=== PATIENT | male | born 1980 | race Caucasian/White ===

== ENCOUNTER → 2017-08-09 10:34 | Outpatient (CLI) | payer MEDICARE, MEDICAID, SELFPAY ==
--- NOTE | 2017-08-09 10:47 | XR_ITS ---
XR foot RT min 3V HISTORY: ITS.REASON: RT FOOT PAIN, SWELLING AND TENDER ORDERING PHYSICIAN: Noy Gonzalez PATIENT AGE: 37 years COMPARISON: None FINDINGS: No fracture or dislocation. No lytic or blastic change. There is normal mineralization.. The joint spaces are well-preserved. No significant degenerative/arthritic changes. No erosive changes evident. IMPRESSION: Negative, no acute finding
== END ==
PROVIDERS: PCP Physician Assistant; Visit Provider Physician Assistant
DX: M79.671 Pain in right foot (principal)
CPT/HCPCS: 73630

== ENCOUNTER → 2017-08-18 09:31 | Outpatient (CLI) | payer MEDICARE, MEDICAID, SELFPAY ==
--- NOTE | 2017-08-18 10:06 | MR_ITS ---
MR foot RT wo con HISTORY: Right foot pain, dorsal and lateral pain ITS.REASON: RIGHT FOOT PAIN ORDERING PHYSICIAN: Noy Gonzalez PATIENT AGE: 37 years COMPARISON: Radiograph of 08/09/2017 TECHNIQUE: Standard multiplanar multiecho sequences are performed without contrast. FINDINGS: There is increased T2 signal involving the head of the second metatarsal and shaft of the second metatarsal. There is a subtle area of decreased transverse T2 signal at the diaphyseal metaphyseal junction at the base of the second metatarsal. These findings are suspicious for stress fracture nondisplaced. Patient had similar findings on the contralateral foot at the fourth metatarsal on MRI of 03/28/2017. There is surrounding soft tissue edema at the base of the second metatarsal. There is a small ankle joint effusion posteriorly. No other significant anomalies are evident. IMPRESSION: Bone marrow edema involving the proximal aspect of the second metatarsal and shaft of the second metatarsal. Suspect a stress fracture at the diaphyseal metaphyseal junction proximally with surrounding soft tissue edema. Osteomyelitis isn't included in the differential diagnosis. Please correlate clinically with appropriate laboratory values. Recommend follow-up radiograph in 7-10 days to assess for any expected bony changes. Small ankle joint effusion
== END ==
PROVIDERS: PCP Physician Assistant; Visit Provider Physician Assistant
DX: M79.671 Pain in right foot (principal)
CPT/HCPCS: 73718

== ENCOUNTER → 2017-08-29 08:58 | Outpatient (CLI) | payer MEDICARE, MEDICAID, SELFPAY ==
[2017-09-01 10:53] LABS: Prolactin 438.2 ng/mL (4.0-15.2)
== END ==
PROVIDERS: PCP Physician Assistant; Visit Provider Obstetrics & Gynecology Gynecology
DX: D35.2 Benign neoplasm of pituitary gland (principal)
CPT/HCPCS: 36415; 84146

== ENCOUNTER → 2017-09-18 13:23 | Outpatient (CLI) | payer MEDICARE, MEDICAID, SELFPAY ==
[2017-09-18 13:55] LABS: Creatinine,Urine Random 98 mg/dL (20-320)
[2017-09-18 14:02] LABS: Total Protein,Urine Random 395.6 mg/dL (0.0-11.9)
[2017-09-18 15:08] LABS: Albumin Level 3.9 gm/dL (3.4-5.0); Anion Gap 12.8 mEq/L (5-15); Blood Urea Nitrogen 13 mg/dL (7-18); Calcium 9.1 mg/dL (8.5-10.1); Carbon Dioxide 27 mmol/L (21.0-32.0); Chloride 102 mmol/L (98-107); Creatinine,Serum 1.17 mg/dL (0.70-1.30); Estimated Glomerular Filt Rate 70 ml/min (>60); GFR (African American) 84 ML/MIN (>60); Glucose 140 mg/dL (74-106); Phosphorous 3.2 mg/dL (2.4-4.9); Potassium 3.8 mmoL/L (3.5-5.1); Sodium 138 mmol/L (136-145); Uric Acid 8.8 mg/dL (2.6-7.2)
[2017-09-19 08:21] LABS: Complement C3 167 mg/dL (82-167)
== END ==
PROVIDERS: PCP Family Medicine; Visit Provider Internal Medicine Nephrology
DX: I10 Essential (primary) hypertension (principal)
CPT/HCPCS: 36415; 80069; 82570; 82652; 84155; 84550; 86161

== ENCOUNTER → 2017-10-02 15:08 | Outpatient (POV) | payer MEDICARE, MEDICAID, SELFPAY | PROVIDERS: PCP Family Medicine; Visit Provider Internal Medicine Nephrology | DX: Z00.00 Encounter for general adult medical examination without abnormal findings (principal) ==

== ENCOUNTER → 2017-12-21 16:20 | Outpatient (CLI) | payer MEDICARE, MEDICAID, SELFPAY ==
--- NOTE | 2017-12-21 16:29 | XR_ITS ---
XR elbow LT min 3V HISTORY: ITS.REASON: LEFT ELBOW PAIN, FALL ORDERING PHYSICIAN: Noy Gonzalez PATIENT AGE: 37 years COMPARISON: None FINDINGS: BONY STRUCTURES: No fracture or dislocation. No lytic or blastic change. Normal mineralization. SOFT TISSUES: Unremarkable. No radio opaque foreign bodies. No displaced fat pad. JOINT SPACE: Well-preserved. No significant arthritic changes evident. IMPRESSION: Negative elbow.
== END ==
PROVIDERS: PCP Physician Assistant; Visit Provider Physician Assistant
DX: M25.522 Pain in left elbow (principal)
CPT/HCPCS: 73080

== ENCOUNTER → 2018-01-29 17:05 | Outpatient (REF) | payer MEDICARE, MEDICAID, SELFPAY | LOC: LAB 17:05 | PROVIDERS: PCP Physician Assistant; Visit Provider Podiatrist | DX: B35.1 Tinea unguium (principal) | CPT/HCPCS: 87102; 87206; 87220 ==

== ENCOUNTER → 2018-04-19 08:29 | Outpatient (CLI) | payer MEDICARE, MEDICAID, SELFPAY ==
[2018-04-20 19:12] LABS: Prolactin 8.4 ng/mL (4.0-15.2)
== END ==
PROVIDERS: PCP Family Medicine; Visit Provider Internal Medicine Endocrinology, Diabetes & Metabolism
DX: D35.2 Benign neoplasm of pituitary gland (principal)
CPT/HCPCS: 36415; 84146

== ENCOUNTER → 2018-06-26 09:29 | Outpatient (CLI) | payer MEDICARE, MEDICAID, SELFPAY ==
[2018-06-26 09:32] LABS: Microscopic, Urine URINE MICROSCOPIC (MICROSCOPIC)
--- NOTE | 2018-06-26 09:46 | XR_ITS ---
XR DEXA axial skeleton HISTORY: ITS.REASON: OSTEOPEROSIS ORDERING PHYSICIAN: Yao Gillette PATIENT AGE: 37 years COMPARISON: None FINDINGS: The BMD measured at the L1-L4 is 1.093 with a T score of -1.1. This is considered moderately low. Fracture risk is moderate. Treatment is advised if there are other risk factors IMPRESSION: Moderate fracture risk. Suggest follow up exam May 2020.
[2018-06-26 09:51] LABS: Appearance,Urine CLEAR (Clear); Bilirubin,Urine Negative (Negative); Blood, Urine TRACE-L (Negative); Color,Urine YELLOW (Yellow); Glucose,Urine (UA) Negative (Negative); Ketones,Urine Negative (Negative); Leukocyte Esterase,Urine Negative (Negative); Nitrate,Urine Negative (Negative); Protein,Urine 2+ (Negative); Specific Gravity, Urine 1.025 (1.005-1.030); Urobilinogen,Urine 0.2 EU/dl (0.2)
[2018-06-26 09:53] LABS: Basophils # 0.1 K/mm3 (0-0.2); Basophils % 0.8 % (0.1-2.0); Eosinophils # 0.3 K/mm3 (0.0-0.4); Eosinophils % 3.3 % (0.1-12.0); Hematocrit 51.2 % (42.0-52.0); Hemoglobin 16.5 g/dL (14.1-18.0); Lymphocytes # 1.9 K/mm3 (0.7-4.5); Lymphocytes % 21.2 % (10-50); Mean Corpuscular HGB Conc 32.3 g/dL (31.8-35.4); Mean Corpuscular Hemoglobin 29.3 pg (27.0-31.2); Mean Corpuscular Volume 90.5 fl (80-94); Mean Platelet Volume 7.5 fl (7.4-10.4); Monocytes # 0.6 K/mm3 (0.1-1.0); Monocytes % 6.2 % (1.7-9.3); Neutrophils # 6.1 K/mm3 (1.8-7.8); Neutrophils % 68.5 % (37.0-80.0); Platelet Count 238 K/mm3 (142-424); Red Blood Count 5.65 M/mm3 (4.60-6.20); White Blood Count 8.9 K/mm3 (4.8-10.8)
[2018-06-26 10:03] LABS: Creatinine,Urine Random 217 mg/dL (20-320); Total Protein,Urine Random 117.4 mg/dL (0.0-11.9)
[2018-06-26 10:55] LABS: Bacteria,Urine Trace /lpf; RBC,Urine Occasional #/hpf (0-3); Squamous Epithelial Cell,Urine Occasional #/hpf (0-5)
[2018-06-26 12:08] LABS: Albumin Level 3.7 gm/dL (3.4-5.0); Anion Gap 14.3 mEq/L (5-15); Blood Urea Nitrogen 16 mg/dL (7-18); Calcium 9.3 mg/dL (8.5-10.1); Carbon Dioxide 29 mmol/L (21.0-32.0); Chloride 99 mmol/L (98-107); Creatinine,Serum 1.24 mg/dL (0.70-1.30); Estimated Glomerular Filt Rate 65 ml/min (>60); GFR (African American) 79 ML/MIN (>60); Glucose 151 mg/dL (74-106); Potassium 4.3 mmoL/L (3.5-5.1); Sodium 138 mmol/L (136-145)
== END ==
PROVIDERS: Visit Provider Internal Medicine Nephrology
DX: R80.9 Proteinuria, unspecified (principal); M81.0 Age-related osteoporosis without current pathological fracture
CPT/HCPCS: 36415; 77080; 80069; 81001; 82570; 82652; 84155; 85025

== ENCOUNTER → 2018-07-02 12:26 | Outpatient (POV) | payer MEDICARE, MEDICAID, SELFPAY | PROVIDERS: Visit Provider Internal Medicine Nephrology | DX: Z00.00 Encounter for general adult medical examination without abnormal findings (principal) ==

== ENCOUNTER → 2018-10-17 07:44 | Outpatient (CLI) | payer MEDICARE, MEDICAID, SELFPAY ==
--- NOTE | 2018-10-17 07:58 | XR_ITS ---
XR knee LT 2V HISTORY: Knee pain ITS.REASON: OSTEOARTHRITIS ORDERING PHYSICIAN: Armani Andujar PATIENT AGE: 38 years COMPARISON: None FINDINGS: No fracture or dislocation. No lytic or blastic change. Normal mineralization. No significant arthritic changes evident. There is a small bone island in the lateral aspect of the proximal tibia No other significant findings IMPRESSION: Negative left knee
--- NOTE | 2018-10-17 07:58 | XR_ITS ---
XR knee RT 2V HISTORY: Knee pain ITS.REASON: OSTEOARTHRITIS ORDERING PHYSICIAN: Armani Andujar PATIENT AGE: 38 years COMPARISON: None FINDINGS: No fracture or dislocation. No lytic or blastic change. Normal mineralization. No significant arthritic changes evident. Incidental hypertrophic changes are present at the tibial tuberosity with an accessory center of ossification No other significant findings IMPRESSION: Negative right knee, no acute finding
== END ==
PROVIDERS: PCP Family Medicine; Visit Provider Internal Medicine
DX: M17.0 Bilateral primary osteoarthritis of knee (principal)
CPT/HCPCS: 73560

== ENCOUNTER → 2018-11-06 14:58 | Outpatient (CLI) | payer MEDICARE, MEDICAID, SELFPAY ==
--- NOTE | 2018-11-06 15:05 | NVE_ITS ---
Venous Exam Indications: 782.3 Edema. IMPRESSIONS 1. There is no evidence of significant Reflux. 2. No evidence of deep or superficial vein thrombosis involving the left lower extremity Left lower extremity venous duplex evaluation. Doppler flow study including spectral analysis, color and durán scale imaging. Location: Vascular laboratory. Patient status: Outpatient. Tables: Venous flow and imaging: + +-------+ + + Location Overall Flow properties Comments + +-------+ + + Left common femoral Patent Normal phasicity; spontaneous; normal augmentation; compressible + +-------+ + + Left saphenofemoral Patent Compressible junction + +-------+ + + Left profunda femoral Patent Compressible + +-------+ + + Left femoral Patent Normal phasicity; spontaneous; normal augmentation; compressible + +-------+ + + Left greater saphenous Patent Normal phasicity; spontaneous; normal augmentation; compressible + +-------+ + + Left popliteal Patent Normal phasicity; spontaneous; normal augmentation; compressible + +-------+ + + Left posterior tibial Patent Compressible Portion vessel not visualized mid calf + +-------+ + + Left peroneal Patent Compressible Portion vessel not visualized mid calf. + +-------+ + + Left gastrocnemius Patent Compressible + +-------+ + + Left soleal Patent Compressible + +-------+ + + (Report amended ) Electronically signed by: Kenroy Blount [id number]
== END ==
PROVIDERS: PCP Physician Assistant; Visit Provider Physician Assistant
DX: M79.605 Pain in left leg (principal); M79.89 Other specified soft tissue disorders
CPT/HCPCS: 93971

== ENCOUNTER → 2018-12-15 08:35 | Outpatient (CLI) | payer MEDICARE, MEDICAID, SELFPAY ==
[2018-12-15 09:45] LABS: Anion Gap 13.6 mEq/L (5-15); Blood Urea Nitrogen 14 mg/dL (7-18); Calcium 8.4 mg/dL (8.5-10.1); Carbon Dioxide 25 mmol/L (21.0-32.0); Chloride 102 mmol/L (98-107); Estimated Glomerular Filt Rate 67 ml/min (>60); GFR (African American) 82 ML/MIN (>60); Glucose 134 mg/dL (74-106); Potassium 4.6 mmoL/L (3.5-5.1); Sodium 136 mmol/L (136-145)
== END ==
PROVIDERS: Visit Provider Surgery
DX: N28.9 Disorder of kidney and ureter, unspecified (principal)
CPT/HCPCS: 36415; 80048

== ENCOUNTER → 2019-02-04 09:10 | Outpatient (CLI) | payer MEDICARE, MEDICAID, SELFPAY ==
[2019-02-06 13:54] LABS: Testosterone,Free 0.9 pg/mL (8.7-25.1)
== END ==
PROVIDERS: Visit Provider Urology
DX: R79.89 Other specified abnormal findings of blood chemistry (principal); E29.1 Testicular hypofunction
CPT/HCPCS: 36415; 84402

== ENCOUNTER → 2019-02-06 13:26 | Outpatient (POV) | payer MEDICARE, MEDICAID, SELFPAY | PROVIDERS: Visit Provider Internal Medicine Nephrology | DX: Z00.00 Encounter for general adult medical examination without abnormal findings (principal) ==

== ENCOUNTER → 2019-03-18 07:50 | Outpatient (CLI) | payer MEDICARE, MEDICAID, SELFPAY ==
[2019-03-18 08:33] LABS: Basophils # 0.1 K/mm3 (0-0.2); Basophils % 0.7 % (0.1-2.0); Eosinophils # 0.3 K/mm3 (0.0-0.4); Eosinophils % 2.9 % (0.1-12.0); Hematocrit 47.1 % (42.0-52.0); Hemoglobin 15.5 g/dL (14.1-18.0); Lymphocytes % 22.6 % (10-50); Mean Corpuscular HGB Conc 32.8 g/dL (31.8-35.4); Mean Corpuscular Volume 91.6 fl (80-94); Mean Platelet Volume 7.2 fl (7.4-10.4); Monocytes # 0.6 K/mm3 (0.1-1.0); Monocytes % 6.6 % (1.7-9.3); Neutrophils # 5.8 K/mm3 (1.8-7.8); Neutrophils % 67.2 % (37.0-80.0); Platelet Count 269 K/mm3 (142-424); Red Blood Count 5.14 M/mm3 (4.60-6.20); Red Cell Distribution Width 14.6 % (11.5-17.5); White Blood Count 8.7 K/mm3 (4.8-10.8)
[2019-03-18 17:32] LABS: Albumin Level 3.8 gm/dL (3.4-5.0); Anion Gap 12.8 mEq/L (5-15); Blood Urea Nitrogen 11 mg/dL (7-18); Calcium 9.1 mg/dL (8.5-10.1); Carbon Dioxide 29 mmol/L (21.0-32.0); Chloride 103 mmol/L (98-107); Creatinine,Serum 1.31 mg/dL (0.70-1.30); Estimated Glomerular Filt Rate 61 ml/min (>60); GFR (African American) 74 ML/MIN (>60); Glucose 90 mg/dL (74-106); Phosphorous 3.5 mg/dL (2.4-4.9); Potassium 3.8 mmoL/L (3.5-5.1); Sodium 141 mmol/L (136-145)
== END ==
PROVIDERS: Visit Provider Internal Medicine Nephrology
DX: R80.9 Proteinuria, unspecified (principal)
CPT/HCPCS: 36415; 80069; 85025

== ENCOUNTER → 2019-04-29 13:37 | Outpatient (POV) | payer MEDICARE, SELFPAY | PROVIDERS: Visit Provider Internal Medicine Nephrology | DX: Z00.00 Encounter for general adult medical examination without abnormal findings (principal) ==

== ENCOUNTER → 2019-10-11 10:11 | Outpatient (CLI) | payer MEDICARE, SELFPAY ==
[2019-10-11 11:03] LABS: Basophils # 0.1 K/mm3 (0-0.2); Basophils % 0.9 % (0.1-2.0); Eosinophils # 0.4 K/mm3 (0.0-0.4); Eosinophils % 3.6 % (0.1-12.0); Hematocrit 52.2 % (42.0-52.0); Hemoglobin 17.2 g/dL (14.1-18.0); Lymphocytes # 1.9 K/mm3 (0.7-4.5); Lymphocytes % 18.4 % (10-50); Mean Corpuscular HGB Conc 32.9 g/dL (31.8-35.4); Mean Corpuscular Hemoglobin 29.5 pg (27.0-31.2); Mean Corpuscular Volume 89.6 fl (80-94); Mean Platelet Volume 7.6 fl (7.4-10.4); Monocytes # 0.8 K/mm3 (0.1-1.0); Monocytes % 7.9 % (1.7-9.3); Neutrophils # 7.3 K/mm3 (1.8-7.8); Neutrophils % 69.3 % (37.0-80.0); Platelet Count 267 K/mm3 (142-424); Red Blood Count 5.82 M/mm3 (4.60-6.20); Red Cell Distribution Width 14.9 % (11.5-17.5); White Blood Count 10.6 K/mm3 (4.8-10.8)
[2019-10-11 12:48] LABS: Alanine Aminotransferase 35 U/L (12-78); Albumin Level 3.8 g/dl (3.5-5.0); Alkaline Phosphatase 62 U/L (38-126); Anion Gap 10.4 mEq/L (5-15); Aspartate Amino Transferase 35 U/L (17-59); Bilirubin,Indirect 0.3 mg/dL (0.0-0.9); Bilirubin,Total 0.3 mg/dl (0.2-1.3); Bilirubin,Unconjugated 0.5 mg/dL (0.0-1.1); Blood Urea Nitrogen 12 mg/dl (9-20); Calcium 9.3 mg/dl (8.4-10.2); Carbon Dioxide 31 mmol/L (22.0-30.0); Chloride 99 mmol/L (98-107); Estimated Glomerular Filt Rate 67 ml/min (>60); GFR (African American) 81 ML/MIN (>60); Glucose 82 mg/dl (74-100); Potassium 4.4 mmoL/L (3.5-5.1); Sodium 136 mmol/L (136-145); Total Protein,Serum 6.3 g/dl (6.3-8.2)
[2019-10-11 12:56] LABS: NT Pro Brain Natriuretic Pep. 74.5 pg/mL (0-125)
== END ==
PROVIDERS: Visit Provider Physician Assistant
DX: I11.9 Hypertensive heart disease without heart failure (principal); I50.9 Heart failure, unspecified; R06.00 Dyspnea, unspecified; R07.9 Chest pain, unspecified; R60.9 Edema, unspecified; E11.9 Type 2 diabetes mellitus without complications; J44.9 Chronic obstructive pulmonary disease, unspecified; G47.33 Obstructive sleep apnea (adult) (pediatric); I27.20 Pulmonary hypertension, unspecified; R06.09 Other forms of dyspnea; R07.89 Other chest pain
CPT/HCPCS: 36415; 80048; 80076; 83880; 85025

== ENCOUNTER → 2019-10-14 13:36 | Outpatient (CLI) | payer MEDICARE, SELFPAY ==
[2019-10-14 14:56] LABS: Chloride 99 mmol/L (98-107)
[2019-10-14 14:57] LABS: Potassium 4.4 mmoL/L (3.5-5.1); Sodium 138 mmol/L (136-145)
[2019-10-14 14:59] LABS: Blood Urea Nitrogen 14 mg/dl (9-20); Estimated Glomerular Filt Rate 67 ml/min (>60); GFR (African American) 81 ML/MIN (>60)
[2019-10-14 15:00] LABS: Anion Gap 13.4 mEq/L (5-15); Calcium 9.8 mg/dl (8.4-10.2); Carbon Dioxide 30 mmol/L (22.0-30.0); Glucose 93 mg/dl (74-100)
== END ==
PROVIDERS: Physician Assistant; Visit Provider Internal Medicine
DX: R60.9 Edema, unspecified (principal); Z51.81 Encounter for therapeutic drug level monitoring; Z79.899 Other long term (current) drug therapy
CPT/HCPCS: 36415; 80048

== ENCOUNTER → 2019-10-30 09:26 | Outpatient (CLI) | payer MEDICARE, SELFPAY ==
[2019-10-30 10:35] LABS: Chloride 99 mmol/L (98-107); Potassium 4.9 mmoL/L (3.5-5.1); Sodium 135 mmol/L (136-145)
[2019-10-30 10:36] LABS: Albumin Level 3.7 g/dl (3.5-5.0)
[2019-10-30 10:38] LABS: Anion Gap 9.9 mEq/L (5-15); Blood Urea Nitrogen 18 mg/dl (9-20); Calcium 9.5 mg/dl (8.4-10.2); Carbon Dioxide 31 mmol/L (22.0-30.0); Estimated Glomerular Filt Rate 56 ml/min (>60); GFR (African American) 68 ML/MIN (>60); Glucose 127 mg/dl (74-100); Phosphorous 3.9 mg/dl (2.5-4.5)
[2019-10-30 12:07] LABS: Chloride 100 mmol/L (98-107)
[2019-10-30 12:08] LABS: Potassium 4.8 mmoL/L (3.5-5.1); Sodium 135 mmol/L (136-145)
[2019-10-30 12:10] LABS: Blood Urea Nitrogen 19 mg/dl (9-20); Estimated Glomerular Filt Rate 56 ml/min (>60); GFR (African American) 68 ML/MIN (>60)
[2019-10-30 12:11] LABS: Anion Gap 9.8 mEq/L (5-15); Calcium 9.5 mg/dl (8.4-10.2); Carbon Dioxide 30 mmol/L (22.0-30.0); Glucose 128 mg/dl (74-100)
== END ==
PROVIDERS: Internal Medicine Nephrology; Visit Provider Physician Assistant
DX: E11.9 Type 2 diabetes mellitus without complications (principal); G47.33 Obstructive sleep apnea (adult) (pediatric); I27.20 Pulmonary hypertension, unspecified; I50.9 Heart failure, unspecified; J44.9 Chronic obstructive pulmonary disease, unspecified; R06.09 Other forms of dyspnea; R60.9 Edema, unspecified; N18.3 Chronic kidney disease, stage 3 (moderate)
CPT/HCPCS: 36415; 80048; 80069

== ENCOUNTER → 2019-10-30 09:40 | Outpatient (CLI) | payer MEDICARE, SELFPAY | PROVIDERS: Visit Provider Nurse Practitioner Family | DX: I27.20 Pulmonary hypertension, unspecified (principal) ==

== ENCOUNTER → 2019-11-08 08:09 | Outpatient (CLI) | payer MEDICARE, SELFPAY ==
[2019-11-08 09:26] LABS: Chloride 99 mmol/L (98-107); Potassium 4.6 mmoL/L (3.5-5.1); Sodium 137 mmol/L (136-145)
[2019-11-08 09:29] LABS: Anion Gap 14.6 mEq/L (5-15); Blood Urea Nitrogen 17 mg/dl (9-20); Carbon Dioxide 28 mmol/L (22.0-30.0); Estimated Glomerular Filt Rate 67 ml/min (>60); GFR (African American) 81 ML/MIN (>60)
[2019-11-08 09:30] LABS: Calcium 10.2 mg/dl (8.4-10.2); Glucose 138 mg/dl (74-100)
[2019-11-09 08:18] LABS: Prolactin 65.7 ng/mL (4.0-15.2)
== END ==
PROVIDERS: Visit Provider Internal Medicine Endocrinology, Diabetes & Metabolism
DX: D35.2 Benign neoplasm of pituitary gland (principal)
CPT/HCPCS: 36415; 80048; 84146

== ENCOUNTER 2020-02-16 12:41 | Emergency (ER) | payer MEDICARE, MEDICAID, SELFPAY ==
[2020-02-16 12:43] VITALS: BP 136/74; PULSE 92; RESP 16; TEMP 36.2; O2SAT 98; BMI 51.6
--- NOTE | 2020-02-16 13:05 | HMH.EDWNDL ---
ED Disposition Clinical Impression: Laceration Disposition: Home, Self-Care Condition on Discharge: Good Instructions: DI for Laceration Repair Referrals: Nell Vaca [Primary Care Provider] - - Critical Care Critical Care Time: No Attestation: On 02/16/20, the high probability of a clinically significant, sudden or life threatening deterioration of the following system(s) required my full and direct attention, intervention and personal management. The time I documented below is in addition to time spent performing reported procedures but includes the following listed in this critical care notation. Medical Decision Making - Medical Records Medical records reviewed: Yes: I reviewed the patient's medical records. - Jorge Inquiry Pt receiving controlled substance: No Vital Signs: 02/16/20 12:43 Temperature 97.1 F L Temperature Source Oral Pulse Rate [Left Radial] 92 H Respiratory Rate 16 Blood Pressure [Right Arm] 136/74 Blood Pressure Mean [Right Arm] 94 Blood Pressure Position [Right Arm] Sitting 02 Sat by Pulse Oximetry 98 Oxygen Delivery Method Room Air Wound/Laceration HPI - General Chief Complaint: Wound/Laceration Stated Complaint: AO cut L hand w/ glass Time Seen by Provider: 02/16/20 12:55 Mode of Arrival: Ambulatory Limitations: No Limitations Description of Symptoms (Recalled from ER Triage Doc. by RN): TO ED PER PVT CAR WITH C/O LAC PALM LT HAND TODAY STATES PUSHING TO HARD AGAINST A WINDOW OF HIS CABIN. PT STATES CURRENTLY TAKING A BLOOD THINNER NO ACTIVE BLEEDING NOTED - History of Present Illness HPI narrative: This is a 39-year-old male that presents with acute laceration to the left palm patient sustained laceration while working on his metal camper. He denies any significant pain but did have a fair amount of bleeding secondary to dual antiplatelet use. Unsure of tetanus status. Onset (ago): minute(s) (30m) Extremity Location: Left: hand - Related Data Home Medications Medication Instructions Recorded Confirmed testosterone cypionate 200 mg/mL 200 mg IM DIRECTED 28 Days #4 10/31/17 12/12/19 intramuscular oil fenofibrate 160 mg tablet 160 mg PO DAILY 30 Days #30 tab 12/12/17 12/12/19 hydroxychloroquine 200 mg tablet 200 mg PO DAILY 30 Days #30 tab 12/12/17 12/12/19 umeclidinium 62.5 mcg/actuation 1 inh INHALATION DAILY PRN 30 Days 12/12/17 12/12/19 blister powder for inhalation #30 each gabapentin 300 mg capsule 300 mg PO BID 30 Days #60 01/29/18 12/12/19 fluticasone propionate 50 1 inh INHALATION BID 12/04/18 12/12/19 mcg/actuation blister powder for inhalation duloxetine 60 mg capsule,delayed 120 mg PO DAILY 30 Days #60 cap 10/11/19 12/12/19 release tizanidine 2 mg tablet 4 mg PO QHS tab 10/30/19 12/12/19 Previous Rx's Medication Instructions Recorded atorvastatin 40 mg tablet 40 mg PO DAILY #90 tab 06/25/19 losartan 25 mg tablet 25 mg PO DAILY #90 tab 06/25/19 carvedilol 25 mg tablet 25 mg PO BID #60 tab 10/11/19 furosemide 40 mg tablet 40 mg PO DAILY #30 tab 10/18/19 spironolactone 25 mg tablet 25 mg PO DAILY #30 tab 10/18/19 Allergies Allergy/AdvReac Type Severity Reaction Status Date / Time Penicillins Allergy Intermediate I-HIVES Verified 12/12/19 08:39 NSAIDS (Non-Steroidal AdvReac Verified 12/12/19 08:39 Anti-Inflamma [facility] History - Hepatitis A Screen Drug use history?: No High risk sexual behaviors?: No History of sexually transmitted infection?: No Currently employed?: No Childcare worker?: No Do you have indoor plumbing?: Yes Do you have electricity?: Yes Attestation statement:: This patient has been screened for Hepatitis A risk factors. I have reviewed the patient's past medical history: Yes Medical History: Reports:: Asthma, Cancer, Congestive Heart Failure, Chronic Obstructive Pulmonary Disease (COPD), Coronary Artery Disease, Depression, Diabetes Mellitus Type 2, Hyperlipidemia, Hypertension,
--- NOTE | 2020-02-16 13:30 | PC.NURSE ---
DSD APPLIED TO LT HAND
[2020-02-16 13:51] VITALS: BP 155/75; PULSE 91; RESP 18; TEMP 36.6; O2SAT 98
== END 2020-02-16 13:53 | disposition home or self-care (01) ==
PROVIDERS: Emergency Provider Emergency Medicine; PCP Family Medicine
DX: S61.412A Laceration without foreign body of left hand, initial encounter (principal); W26.8XXA Contact with other sharp object(s), not elsewhere classified, initial encounter; Y92.89 Other specified places as the place of occurrence of the external cause; J44.9 Chronic obstructive pulmonary disease, unspecified; E78.5 Hyperlipidemia, unspecified; I10 Essential (primary) hypertension; I25.10 Atherosclerotic heart disease of native coronary artery without angina pectoris; F33.1 Major depressive disorder, recurrent, moderate; E11.9 Type 2 diabetes mellitus without complications; M32.9 Systemic lupus erythematosus, unspecified; F17.210 Nicotine dependence, cigarettes, uncomplicated; Z23 Encounter for immunization
CPT/HCPCS: 12001; 90471; 90715; 99282

== ENCOUNTER 2020-03-11 20:14 | Emergency (ER) | payer MEDICARE, MEDICAID, SELFPAY ==
[2020-03-11 20:15] VITALS: BP 149/97; PULSE 89; RESP 16; TEMP 36.9; O2SAT 96; BMI 49.4
--- NOTE | 2020-03-11 20:35 | PC.NURSE ---
pt soaking in hibiclens at this time
--- NOTE | 2020-03-11 21:07 | HMH.EDWNDL ---
ED Disposition Clinical Impression: Laceration Disposition: Home, Self-Care Condition on Discharge: Good Instructions: DI for Laceration Repair Additional Instructions: sutures out 10 days and recheck if any problems Referrals: Nell Vaca [Primary Care Provider] - - Critical Care Critical Care Time: No Attestation: On 03/11/20, the high probability of a clinically significant, sudden or life threatening deterioration of the following system(s) required my full and direct attention, intervention and personal management. The time I documented below is in addition to time spent performing reported procedures but includes the following listed in this critical care notation. Medical Decision Making - Medical Records Medical records reviewed: Yes: I reviewed the patient's medical records. - Jorge Inquiry Pt receiving controlled substance: No Vital Signs: 03/11/20 20:15 Temperature 98.5 F Temperature Source Oral Pulse Rate [Left Radial] 89 Respiratory Rate 16 Blood Pressure [Right Arm] 149/97 H Blood Pressure Mean [Right Arm] 114 Blood Pressure Source [Right Arm] Automatic Cuff Blood Pressure Position [Right Arm] Sitting 02 Sat by Pulse Oximetry 96 Oxygen Delivery Method Room Air Wound/Laceration HPI - General Chief Complaint: Wound/Laceration Stated Complaint: AO 03/11 @ 1945 Lac to right middle finger Time Seen by Provider: 03/11/20 20:30 Mode of Arrival: Ambulatory Source of Information: Patient, Medical Record Limitations: No Limitations Description of Symptoms (Recalled from ER Triage Doc. by RN): pt stated he was taking out the trash when the bag broke and he went to catch it when he cut his finger on a broken wine bottle. laceration present to right index finger - History of Present Illness HPI narrative: lac rt middle finger distal as noted above - Onset (ago): hour(s) Extremity Location: Right: hand Place: home Patient tetanus UTD: Yes Context: accidental Associated symptoms: none - Related Data Home Medications Medication Instructions Recorded Confirmed testosterone cypionate 200 mg/mL 200 mg IM DIRECTED 28 Days #4 10/31/17 12/12/19 intramuscular oil fenofibrate 160 mg tablet 160 mg PO DAILY 30 Days #30 tab 12/12/17 12/12/19 hydroxychloroquine 200 mg tablet 200 mg PO DAILY 30 Days #30 tab 12/12/17 12/12/19 umeclidinium 62.5 mcg/actuation 1 inh INHALATION DAILY PRN 30 Days 12/12/17 12/12/19 blister powder for inhalation #30 each gabapentin 300 mg capsule 300 mg PO BID 30 Days #60 01/29/18 12/12/19 fluticasone propionate 50 1 inh INHALATION BID 12/04/18 12/12/19 mcg/actuation blister powder for inhalation duloxetine 60 mg capsule,delayed 120 mg PO DAILY 30 Days #60 cap 10/11/19 12/12/19 release tizanidine 2 mg tablet 4 mg PO QHS tab 10/30/19 12/12/19 Previous Rx's Medication Instructions Recorded atorvastatin 40 mg tablet 40 mg PO DAILY #90 tab 06/25/19 losartan 25 mg tablet 25 mg PO DAILY #90 tab 06/25/19 carvedilol 25 mg tablet 25 mg PO BID #60 tab 10/11/19 furosemide 40 mg tablet 40 mg PO DAILY #30 tab 10/18/19 spironolactone 25 mg tablet 25 mg PO DAILY #30 tab 10/18/19 Allergies Allergy/AdvReac Type Severity Reaction Status Date / Time Penicillins Allergy Intermediate I-HIVES Verified 12/12/19 08:39 NSAIDS (Non-Steroidal AdvReac Verified 12/12/19 08:39 Anti-Inflamma [facility] History - Hepatitis A Screen Drug use history?: No High risk sexual behaviors?: No History of sexually transmitted infection?: No Currently employed?: No Childcare worker?: No Do you have indoor plumbing?: Yes Do you have electricity?: Yes Attestation statement:: This patient has been screened for Hepatitis A risk factors. I have reviewed the patient's past medical history: Yes Medical History: Reports:: Asthma, Cancer, Congestive Heart Failure, Chronic Obstructive Pulmonary Disease (COPD), Coronary Artery Disease, Depression, Diabetes Mellitus Type 2, Hype
[2020-03-11 21:18] VITALS: BP 145/89; PULSE 93; RESP 18; O2SAT 96
[2020-03-11 21:21] VITALS: BP 142/84; PULSE 84; RESP 16; TEMP 36.9; O2SAT 97
== END 2020-03-11 21:23 | disposition home or self-care (01) ==
PROVIDERS: Emergency Provider Emergency Medicine; PCP Family Medicine
DX: S61.212A Laceration without foreign body of right middle finger without damage to nail, initial encounter (principal); W25.XXXA Contact with sharp glass, initial encounter; Y92.018 Other place in single-family (private) house as the place of occurrence of the external cause; I25.10 Atherosclerotic heart disease of native coronary artery without angina pectoris; E11.9 Type 2 diabetes mellitus without complications; E78.5 Hyperlipidemia, unspecified; I10 Essential (primary) hypertension; F33.1 Major depressive disorder, recurrent, moderate; J44.9 Chronic obstructive pulmonary disease, unspecified; Z88.0 Allergy status to penicillin; Z88.6 Allergy status to analgesic agent; F17.210 Nicotine dependence, cigarettes, uncomplicated; Z79.899 Other long term (current) drug therapy
CPT/HCPCS: 12002; 99282

== ENCOUNTER 2020-04-15 11:41 | Emergency (ER) | payer MEDICARE, MEDICAID, SELFPAY ==
[2020-04-15 11:47] VITALS: BP 156/90; PULSE 80; RESP 18; TEMP 36.7; O2SAT 96; BMI 45.6
--- NOTE | 2020-04-15 11:59 | XR_ITS ---
PROCEDURE: XR FOOT LT MIN 3V CLINICAL INDICATION: L foot pain, no injury COMPARISON: CR FTL3 FOOT-LT-3 VIEWS from 03/20/2017 CR FTL3 FOOT-LT-3 VIEWS from 04/05/2017 CR FTL3 FOOT-LT-3 VIEWS from 04/26/2017 CR [id number] XR foot RT min 3V from 08/09/2017 FINDINGS: No fracture or dislocation. No lytic or blastic change. There is normal mineralization. The joint spaces are well-preserved. No significant degenerative/arthritic changes. No erosive changes evident. Other findings:None. IMPRESSION: No acute findings. Dictated by: Kenroy Blount MD 04/15/2020 13:41 Kenroy Blount MD in [place] 04/15/2020 13:41
--- NOTE | 2020-04-15 12:00 | HMH.EDGENADL ---
ED Disposition Clinical Impression: Left foot pain Disposition: Home, Self-Care Condition on Discharge: Good Additional Instructions: Make sure to follow-up within the next week for a repeat x-ray. If you have any new, changing, worsening, or concerning symptoms, come back to the emergency department. Referrals: PCP,No [Primary Care Provider] - Time of Disposition: 13:06 - Critical Care Critical Care Time: No Attestation: On , the high probability of a clinically significant, sudden or life threatening deterioration of the following system(s) required my full and direct attention, intervention and personal management. The time I documented below is in addition to time spent performing reported procedures but includes the following listed in this critical care notation. Medical Decision Making - Medical Records Medical records reviewed: Yes: I reviewed the patient's medical records. MR Comment: 39-year-old male presents emergency department with left foot pain. He states he heard a pop when he got out of bed this morning and put his feet on the ground. He arrives to the ED hemodynamically stable, with reassuring vital signs, and looks well on exam. Given that he has had stress fractures before without trauma, and he has tenderness along the left distally from medial malleolus through the midfoot on the medial aspect, will get an x-ray and reassess. On reassessment, patient remains well. Subtle irregularity of the base the metatarsal. Placed in a splint and advised nonweightbearing until followup within the next week for repeat x-ray. He verbalized understanding of this and agreed to the plan. Safe to discharge. - Jorge Inquiry Pt receiving controlled substance: No Vital Signs: 04/15/20 11:47 04/15/20 12:13 04/15/20 13:08 Temperature 98.0 F 98.0 F Temperature Source Oral Oral Pulse Rate 76 Pulse Rate [Right Radial] 80 76 Respiratory Rate 18 18 Blood Pressure 129/84 Blood Pressure [Right Arm] 156/90 H 129/84 Blood Pressure Mean [Right Arm] 112 99 Blood Pressure Source [Right Arm] Automatic Cuff Automatic Cuff Blood Pressure Position [Right Arm] Sitting Sitting 02 Sat by Pulse Oximetry 96 97 Oxygen Delivery Method Room Air Room Air Room Air Orders (Tests/Meds): ED MEDICATIONS Discontinued Medications Generic Name Dose Route Start Last Admin Trade Name Freq PRN Reason Stop Dose Admin Acetaminophen 1,000 mg 04/15/20 12:21 04/15/20 12:43 Tylenol 500mg Tablet PO 04/15/20 12:22 1,000 mg ONCE ONE Administration General Adult HPI - General Chief complaint: PAIN Stated complaint: LEFT FOOT FRAC POSSIBLE Time Seen by Provider: 04/15/20 12:00 Mode of Arrival: Ambulatory Limitations: No Limitations Description of Symptoms (Recalled from ER Triage Doc. by RN): pt reports L foot pain, pt reports he got up out of bed this morning a felt a pop in foot. Pt reports has hx of low bone density and has had fractures in foot previously without injury. - History of Present Illness HPI narrative: 39-year-old male with a history of hypertension, hyperlipidemia, presents emergency department with left foot pain. He states that he got out of bed this morning put his feet down and when he stood up he felt a pop in his left foot. He states he has had pain with ambulation since that time. He denies any numbness or tingling. He denies rolling the ankle over or any other trauma. He states he has had stress fractures without trauma previously. He denies anything makes better or worse, no other complaints or concerns. - Related Data Home Medications Medication Instructions Recorded Confirmed testosterone cypionate 200 mg/mL 200 mg IM DIRECTED 28 Days #4 10/31/17 12/12/19 intramuscular oil fenofibrate 160 mg tablet 160 mg PO DAILY 30 Days #30 tab 12/12/17 12/12/19 hydroxychloroquine 200 mg tablet 200 mg PO DAILY 30 Days #30 tab 12/12/17 12/12/19 umeclidinium 62.5 mcg/actuat
--- NOTE | 2020-04-15 12:00 | PC.NURSE ---
notified rad of xray order, spoke with vanessa
[2020-04-15 12:13] VITALS: BP 129/84; PULSE 76; O2SAT 97
--- NOTE | 2020-04-15 12:25 | PC.NURSE ---
Pt to rad.
--- NOTE | 2020-04-15 12:29 | PC.NURSE ---
Pt returned from rad.
[2020-04-15 13:08] VITALS: BP 129/84; PULSE 76; RESP 18; TEMP 36.7; O2SAT 97
== END 2020-04-15 13:11 | disposition home or self-care (01) ==
PROVIDERS: Emergency Provider Emergency Medicine
DX: M79.672 Pain in left foot (principal); I10 Essential (primary) hypertension; E78.5 Hyperlipidemia, unspecified; J44.9 Chronic obstructive pulmonary disease, unspecified; I25.10 Atherosclerotic heart disease of native coronary artery without angina pectoris; E11.9 Type 2 diabetes mellitus without complications; J45.909 Unspecified asthma, uncomplicated; F17.210 Nicotine dependence, cigarettes, uncomplicated; Z88.0 Allergy status to penicillin; Z88.6 Allergy status to analgesic agent
CPT/HCPCS: 29515; 73630; 99283

== ENCOUNTER → 2020-06-02 08:30 | Outpatient (CLI) | payer MEDICARE, MEDICAID, SELFPAY ==
--- NOTE | 2020-06-02 08:35 | XR_ITS ---
PROCEDURE: XR KNEE RT 4V weight-bearing views CLINICAL INDICATION: RT KNEE SPRAIN COMPARISON: CR KNEELMRT XR knee RT 2V from 10/17/2018 FINDINGS: No fracture or dislocation. No lytic or blastic change. There is normal mineralization. There is minor joint space narrowing medially. Again noted is minor cortical irregularity of the tibial tubercle. There is minor spurring of the lateral border of the patella on the sunrise view. There is no definite effusion. IMPRESSION: Minor degenerative changes as noted Dictated by: Dr. Apollo Mckenzie MD 06/02/2020 09:13 Dr. Apollo Mckenzie MD in [place] 06/02/2020 09:13
== END ==
PROVIDERS: PCP Nurse Practitioner Family; Visit Provider Nurse Practitioner Family
DX: S83.91XA Sprain of unspecified site of right knee, initial encounter (principal)
CPT/HCPCS: 73564

== ENCOUNTER → 2020-06-19 09:08 | Outpatient (CLI) | payer MEDICARE, MEDICAID, SELFPAY ==
--- NOTE | 2020-06-19 09:09 | MR_ITS ---
PROCEDURE: MR KNEE RT WO CON CLINICAL INDICATION: evaluate for meniscal tear Twisting injury with pain and swelling with limited range of motion COMPARISON: CR XR KNEE RT 4V from 06/02/2020 TECHNIQUE: Routine multiplanar multi echo sequences are performed without gadolinium enhancement. FINDINGS: The cruciate ligaments appear intact. There is some thickening with increased T2 signal the medial collateral ligament proximally the lateral collateral ligament appears intact. The quadriceps tendon is unremarkable. There is some increased T2 signal involving the proximal distal aspect of the patellar tendon which could be due to tendinopathy/tendinosis. The patellar cartilage is preserved.. There is increased linear horizontal T2 signal within the posterior horn of the medial meniscus. This however does not appear to reach the articular surface or the free edge of the meniscus and does not meet the strict MRI criteria for meniscal tear. The the There are mild osteoarthritic changes with a small knee joint effusion mainly in the suprapatellar region. There is mild generalized subcutaneous edema about the knee. IMPRESSION: 1. Mild osteoarthritic changes with knee joint effusion. 2. Increased T2 signal of the proximal aspect of the medial collateral ligament with thickening and may represent ligamentous sprain or partial tear. A complete tear is not present. 3. Horizontal linear increased T2 signal involves the posterior horn the medial meniscus but does not reach the meniscal surface and does not satisfy the criteria for a meniscal tear. The Dictated by: Kenroy Blount MD 06/22/2020 09:01 Kenroy Blount MD in [place] 06/22/2020 09:01
== END ==
PROVIDERS: PCP Nurse Practitioner Family; Visit Provider Orthopaedic Surgery
DX: M25.561 Pain in right knee (principal)
CPT/HCPCS: 73721

== ENCOUNTER → 2020-06-30 08:06 | Outpatient (CLI) | payer MEDICARE, MEDICAID, SELFPAY ==
[2020-06-30 09:28] LABS: Basophils # 0.1 K/mm3 (0-0.2); Basophils % 0.9 % (0.1-2.0); Eosinophils # 0.3 K/mm3 (0.0-0.4); Hematocrit 54.5 % (42.0-52.0); Lymphocytes # 1.9 K/mm3 (0.7-4.5); Lymphocytes % 21.6 % (10-50); Mean Corpuscular Hemoglobin 29.7 pg (27.0-31.2); Mean Platelet Volume 8.7 fl (7.4-10.4); Monocytes # 0.5 K/mm3 (0.1-1.0); Monocytes % 5.7 % (1.7-9.3); Neutrophils # 5.9 K/mm3 (1.8-7.8); Neutrophils % 67.9 % (37.0-80.0); Platelet Count 267 K/mm3 (142-424); Red Blood Count 6.05 M/mm3 (4.60-6.20); White Blood Count 8.6 K/mm3 (4.8-10.8)
[2020-06-30 09:36] LABS: Creatinine,Urine Random 121 mg/dL (Not Estab.)
[2020-06-30 10:44] LABS: Albumin Level 3.9 g/dl (3.5-5.0); Anion Gap 9.8 mEq/L (5-15); Blood Urea Nitrogen 16 mg/dl (9-20); Calcium 9.6 mg/dl (8.4-10.2); Carbon Dioxide 31 mmol/L (22.0-30.0); Chloride 100 mmol/L (98-107); Estimated Glomerular Filt Rate 56 ml/min (>60); GFR (African American) 68 ML/MIN (>60); Glucose 109 mg/dl (74-100); Potassium 4.8 mmoL/L (3.5-5.1); Sodium 136 mmol/L (136-145)
[2020-06-30 11:58] LABS: 25-OH Vitamin D, Total < 12.8 ng/mL (30-100)
== END ==
PROVIDERS: Visit Provider Internal Medicine Nephrology
DX: N18.30 Chronic kidney disease, stage 3 unspecified (principal); E55.9 Vitamin D deficiency, unspecified
CPT/HCPCS: 36415; 80069; 82043; 82306; 82570; 84155; 84550; 85025

== ENCOUNTER 2020-06-30 09:56 | Outpatient (RCR) | payer MEDICARE, MEDICAID, SELFPAY | END 2020-06-30 10:20 | disposition home or self-care (01) | LOC: PT 09:56 | PROVIDERS: Visit Provider Orthopaedic Surgery | DX: M25.561 Pain in right knee (principal); S83.411D Sprain of medial collateral ligament of right knee, subsequent encounter; S83.241D Other tear of medial meniscus, current injury, right knee, subsequent encounter; M17.11 Unilateral primary osteoarthritis, right knee | CPT/HCPCS: 97760 ==

== ENCOUNTER → 2020-10-21 08:09 | Outpatient (CLI) | payer MEDICARE, MEDICAID, SELFPAY ==
--- NOTE | 2020-10-21 08:14 | XR_ITS ---
PROCEDURE: XR FOOT RT MIN 3V CLINICAL INDICATION: right foot injury, out of boot COMPARISON: CR FTL3 FOOT-LT-3 VIEWS from 04/26/2017 CR [id number] XR foot RT min 3V from 08/09/2017 CR XR FOOT LT MIN 3V from 04/15/2020 DX FOOT RT 3V from 09/12/2020 FINDINGS: No fracture or dislocation. No lytic or blastic change. There is normal mineralization. The joint spaces are well-preserved. No significant degenerative/arthritic changes. No erosive changes evident. Other findings:None. IMPRESSION: No acute findings. Dictated by: Kenroy Blount MD 10/21/2020 09:25 Kenroy Blount MD in [place] 10/21/2020 09:25
== END ==
PROVIDERS: PCP Family Medicine; Visit Provider Orthopaedic Surgery
DX: S99.921A Unspecified injury of right foot, initial encounter (principal)
CPT/HCPCS: 73630

== ENCOUNTER → 2020-11-17 12:22 | Outpatient (CLI) | payer MEDICARE, MEDICAID, SELFPAY ==
[2020-11-17 13:05] LABS: Basophils # 0.1 K/mm3 (0-0.2); Basophils % 0.7 % (0.1-2.0); Eosinophils # 0.3 K/mm3 (0.0-0.4); Eosinophils % 2.5 % (0.1-12.0); Hematocrit 50.7 % (42.0-52.0); Hemoglobin 16.6 g/dL (14.1-18.0); Lymphocytes # 1.9 K/mm3 (0.7-4.5); Lymphocytes % 17.4 % (10-50); Mean Corpuscular HGB Conc 32.8 g/dL (31.8-35.4); Mean Corpuscular Hemoglobin 29.8 pg (27.0-31.2); Mean Platelet Volume 7.3 fl (7.4-10.4); Monocytes # 0.5 K/mm3 (0.1-1.0); Monocytes % 4.4 % (1.7-9.3); Neutrophils # 8.3 K/mm3 (1.8-7.8); Platelet Count 280 K/mm3 (142-424); Red Blood Count 5.57 M/mm3 (4.60-6.20); Red Cell Distribution Width 14.9 % (11.5-17.5); White Blood Count 11.1 K/mm3 (4.8-10.8)
[2020-11-17 13:11] LABS: Hemoglobin A1C 6.1 % (4.0-6.0)
[2020-11-17 13:33] LABS: Alanine Aminotransferase 35 U/L (12-78); Albumin Level 3.9 g/dl (3.5-5.0); Albumin/Globulin Ratio 1.5 (1.1-1.8); Alkaline Phosphatase 110 U/L (38-126); Anion Gap 8.4 mEq/L (5-15); Aspartate Amino Transferase 27 U/L (17-59); Bilirubin,Total 0.3 mg/dl (0.2-1.3); Blood Urea Nitrogen 12 mg/dl (9-20); Calcium 9.2 mg/dl (8.4-10.2); Carbon Dioxide 27 mmol/L (22.0-30.0); Chloride 104 mmol/L (98-107); Estimated Glomerular Filt Rate 61 ml/min (>60); GFR (African American) 74 ML/MIN (>60); Globulin 2.6 g/dL (1.3-3.2); Glucose 119 mg/dl (74-100); Potassium 4.4 mmoL/L (3.5-5.1); Sodium 135 mmol/L (136-145); Total Protein,Serum 6.5 g/dl (6.3-8.2)
[2020-11-17 13:53] LABS: Triiodothryronine (T3) Uptake 29 % (23.5-40.5)
[2020-11-17 13:54] LABS: Free Thyroxine Index 1.9 ug/dL (5.93-13.13); T4 (Thyroxine) 6.4 ug/dl (5.53-11.0)
[2020-11-17 14:21] LABS: Vitamin B12 339 pg/mL (239-931)
[2020-11-18 13:50] LABS: Folate 5.44 ng/mL
== END ==
PROVIDERS: Visit Provider Nurse Practitioner Family
DX: I10 Essential (primary) hypertension (principal); E11.9 Type 2 diabetes mellitus without complications; R53.83 Other fatigue
CPT/HCPCS: 36415; 80053; 82607; 82746; 83036; 84436; 84443; 84479; 85025

== ENCOUNTER → 2020-12-16 14:01 | Outpatient (CLI) | payer MEDICARE, MEDICAID, SELFPAY ==
--- NOTE | 2020-12-16 14:19 | XR_ITS ---
PROCEDURE: XR CHEST 2V CLINICAL HISTORY: Dyspnea COMPARISON: CR CXR CHEST(2 VIEWS-NOT PORTABLE) from 04/08/2016 CT CTAC CTA-CHEST from 04/08/2016 CR CXR CHEST(2 VIEWS-NOT PORTABLE) from 07/13/2016 CR XR CHEST 2V from 04/09/2019 FINDINGS: The cardiomediastinal silhouette and pulmonary vascularity are within normal limits. The lungs are clear without infiltrates, suspicious nodules, or pleural effusions. No acute bony abnormalities. IMPRESSION: No acute findings. Dictated by: Kenroy Blount MD 12/16/2020 15:17 Kenroy Blount MD in [place] 12/16/2020 15:17
[2020-12-16 14:25] LABS: Basophils # 0.1 K/mm3 (0-0.2); Basophils % 0.8 % (0.1-2.0); Eosinophils # 0.4 K/mm3 (0.0-0.4); Eosinophils % 3.4 % (0.1-12.0); Hematocrit 47.2 % (42.0-52.0); Hemoglobin 15.9 g/dL (14.1-18.0); Lymphocytes # 2.2 K/mm3 (0.7-4.5); Lymphocytes % 17.4 % (10-50); Mean Corpuscular HGB Conc 33.8 g/dL (31.8-35.4); Mean Corpuscular Hemoglobin 30.3 pg (27.0-31.2); Mean Corpuscular Volume 89.5 fl (80-94); Mean Platelet Volume 7.4 fl (7.4-10.4); Monocytes # 0.8 K/mm3 (0.1-1.0); Monocytes % 6.1 % (1.7-9.3); Neutrophils % 72.3 % (37.0-80.0); Platelet Count 250 K/mm3 (142-424); Red Blood Count 5.27 M/mm3 (4.60-6.20); White Blood Count 12.5 K/mm3 (4.8-10.8)
[2020-12-22 13:10] LABS: D001-IgE D pteronyssinus <0.10 kU/L (Class 0); D002-IgE D farinae <0.10 kU/L (Class 0); E001-IgE Cat Dander <0.10 kU/L (Class 0); E005-IgE Dog Dander <0.10 kU/L (Class 0); G002-IgE Bermuda Grass <0.10 kU/L (Class 0); G006-IgE Timothy Grass <0.10 kU/L (Class 0); I006-IgE Cockroach, German <0.10 kU/L (Class 0); Immunoglobulin E, Total 69 IU/mL (6-495); M001-IgE Penicillium chrysogen <0.10 kU/L (Class 0); M002-IgE Cladosporium herbarum <0.10 kU/L (Class 0); M003-IgE Aspergillus fumigatus <0.10 kU/L (Class 0); M006-IgE Alternaria alternata <0.10 kU/L (Class 0); T001-IgE Maple/Box Elder <0.10 kU/L (Class 0); T003-IgE Common Silver Birch <0.10 kU/L (Class 0); T006-IgE Cedar, Mountain <0.10 kU/L (Class 0); T007-IgE Oak, White <0.10 kU/L (Class 0); T008-IgE Elm, American <0.10 kU/L (Class 0); T010-IgE Walnut <0.10 kU/L (Class 0); T011-IgE Maple Leaf Sycamore <0.10 kU/L (Class 0); T014-IgE Cottonwood <0.10 kU/L (Class 0); T015-IgE Ash, White <0.10 kU/L (Class 0); T022-IgE Pecan, Hickory <0.10 kU/L (Class 0); T070-IgE White Mulberry <0.10 kU/L (Class 0); W001-IgE Ragweed, Short <0.10 kU/L (Class 0); W011-IgE Thistle, Russian <0.10 kU/L (Class 0); W014-IgE Pigweed, Common <0.10 kU/L (Class 0); W018-IgE Sheep Sorrel <0.10 kU/L (Class 0)
[2020-12-24 05:50] LABS: E072-IgE Mouse Urine <0.10 kU/L (Class 0)
== END ==
PROVIDERS: Visit Provider Internal Medicine Pulmonary Disease
DX: J45.909 Unspecified asthma, uncomplicated (principal)
CPT/HCPCS: 36415; 71046; 82785; 85025; 86003

== ENCOUNTER → 2021-01-05 10:16 | Outpatient (CLI) | payer MEDICARE, MEDICAID, SELFPAY | PROVIDERS: Visit Provider Specialist | DX: Z01.812 Encounter for preprocedural laboratory examination (principal); Z11.52 Encounter for screening for COVID-19 | CPT/HCPCS: U0003 ==

== ENCOUNTER → 2021-01-07 19:57 | Outpatient (CLI) | payer MEDICARE, MEDICAID, SELFPAY | PROVIDERS: PCP Family Medicine; Visit Provider Specialist | DX: G47.33 Obstructive sleep apnea (adult) (pediatric) (principal) | CPT/HCPCS: 95811 ==

== ENCOUNTER → 2021-01-12 13:19 | Outpatient (CLI) | payer MEDICARE, MEDICAID, SELFPAY ==
--- NOTE | 2021-01-12 13:26 | CA_ITS ---
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 Brush RVT Ht: 5 ft 8 in Wt: 321lbs BSA: 2.50 BP: 140/84 mmHg Indications: HTN,RAHEL,PRE-OP,CHF,CAD,SMOKER,COPD,HLD,OBESITY TDS 2D Dimensions LVOT 2.49 cm (M/F) 1.5-2.5 LA Volume 41.90 mL LA Volume Index 16.76 mL/m2 (M/F) 16-34 M-Mode Dimensions RVDd 2.86 cm (0.9-2.6) LA Diam 4.66 cm (1.9-4.0) LVDd 5.83 cm (3.5-5.7) Ao Diam 3.79 cm (2.0-3.7) LVDs 4.10 cm (3.5-5.7) IVSd 1.53 cm (0.6-1.1) PWd 0.84 cm (0.6-1.1) EF (Teich) 56.00% FS 29.70% EDV (Teich) 168.50 mL ESV (Teich) 74.20 mL LV Diastology E Decel Time 103.00 (160-240 msec) E/A Ratio 1.5 MED E' 4.90 (< 7 cm/sec) E'/MED E' Ratio 19.55 (>14) LAT E' 6.50 (<10 cm/sec) E/LAT E' Ratio 14.74 (>14) Aortic Valve AO Peak GR. 7.00 mmHg Mitral Valve MV E Max Hola. 96.00 (40-130 cm/s) MV A Velocity 63.00 (40-130 cm/s) E/A Ratio 1.52 MV Decel. Time 103.00 (160-240 ms) MV PHT 30.00 ms Pulmonary Valve PV Peak Velocity 94.00 (50-150 cm/s) Tricuspid Valve TR P. Velocity 163.00 cm/s RAP Estimate 10.00 mmHg RVSP 20.60 mmHg Left Ventricle Left atrium is mildly enlarged, left ventricle is normal size, mild concentric left ventricular hypertrophy, visually estimated ejection fraction 50%, there is marked hypokinesis involving the inferior basal wall. Diastolic parameters are inconclusive. Right Ventricle Right atrium and right ventricle mildly enlarged with normal contractility. Aortic Valve Aortic valve is minimally thickened and calcified, there is no aortic stenosis or aortic insufficiency. Mitral Valve Mitral valve is grossly normal, there is mild mitral regurgitation. Tricuspid Valve Tricuspid valve grossly normal, there is mild tricuspid regurgitation, tricuspid regurgitation jet velocity is inadequate for calculation of the right ventricular systolic pressure. Pulmonic Valve Pulmonic valve is poorly visualized. Great Vessels Aortic root is normal size. Pericardium No significant pericardial effusion noted. Conclusion 1. Mild biatrial enlargement, normal left ventricular size, mild concentric left ventricular hypertrophy, visually estimated ejection fraction 50% with segmental wall motion abnormality described above, diastolic parameters are inconclusive. 2. Mildly enlarged right ventricle with normal contractility. 3. Mild mitral and tricuspid regurgitation. 4. No significant pericardial effusion noted. Electronically signed by : Arpan Sorto, 01/12/2021 15:22:03
== END ==
PROVIDERS: PCP Family Medicine; Visit Provider Physician Assistant
DX: I50.9 Heart failure, unspecified; I11.0 Hypertensive heart disease with heart failure; I27.20 Pulmonary hypertension, unspecified; E11.9 Type 2 diabetes mellitus without complications; E23.6 Other disorders of pituitary gland; G47.33 Obstructive sleep apnea (adult) (pediatric); J44.9 Chronic obstructive pulmonary disease, unspecified
CPT/HCPCS: 93306

== ENCOUNTER → 2021-01-14 09:28 | Outpatient (CLI) | payer MEDICARE, MEDICAID, SELFPAY | PROVIDERS: PCP Family Medicine; Visit Provider Internal Medicine Pulmonary Disease | DX: R06.00 Dyspnea, unspecified (principal) | CPT/HCPCS: 94060; 94618; 94726; 94729 ==

== ENCOUNTER → 2021-01-19 13:30 | Outpatient (CLI) | payer MEDICARE, MEDICAID, SELFPAY ==
[2021-01-19 13:43] LABS: Basophils # 0.1 K/mm3 (0-0.2); Basophils % 0.8 % (0.1-2.0); Eosinophils # 0.4 K/mm3 (0.0-0.4); Eosinophils % 3.4 % (0.1-12.0); Hematocrit 45.4 % (42.0-52.0); Hemoglobin 16.1 g/dL (14.1-18.0); Lymphocytes # 2.3 K/mm3 (0.7-4.5); Lymphocytes % 18.7 % (10-50); Mean Corpuscular HGB Conc 35.4 g/dL (31.8-35.4); Mean Corpuscular Hemoglobin 30.4 pg (27.0-31.2); Mean Corpuscular Volume 85.9 fl (80-94); Mean Platelet Volume 7.5 fl (7.4-10.4); Monocytes # 0.7 K/mm3 (0.1-1.0); Monocytes % 5.9 % (1.7-9.3); Neutrophils # 8.6 K/mm3 (1.8-7.8); Neutrophils % 71.2 % (37.0-80.0); Platelet Count 286 K/mm3 (142-424); Red Blood Count 5.29 M/mm3 (4.60-6.20); Red Cell Distribution Width 14.7 % (11.5-17.5)
[2021-01-19 14:23] LABS: Chloride 104 mmol/L (98-107); Sodium 139 mmol/L (136-145)
[2021-01-19 14:24] LABS: Potassium 4.5 mmoL/L (3.5-5.1)
[2021-01-19 14:26] LABS: Anion Gap 14.5 mEq/L (5-15); Blood Urea Nitrogen 21 mg/dl (9-20); Carbon Dioxide 25 mmol/L (22.0-30.0); Estimated Glomerular Filt Rate 45 ml/min (>60); GFR (African American) 54 ML/MIN (>60)
[2021-01-19 14:27] LABS: Calcium 9.1 mg/dl (8.4-10.2); Glucose 94 mg/dl (74-100)
== END ==
PROVIDERS: Visit Provider Physician Assistant
DX: Z01.818 Encounter for other preprocedural examination (principal); S67.20XA Crushing injury of unspecified hand, initial encounter; Z11.52 Encounter for screening for COVID-19
CPT/HCPCS: 36415; 80048; 85025; U0003

== ENCOUNTER 2021-01-20 08:58 | Day surgery (SDC) | payer MEDICARE, MEDICAID, SELFPAY ==
[2021-01-20] VITALS (12 sets, daily range): BP systolic 106–200; BP diastolic 65–114; PULSE 59–80; RESP 13–18; TEMP 36.8; O2SAT 92–98; BMI 48.9
--- NOTE | 2021-01-20 | IR_ITS ---
APPROVED REPORT Patient Location: Outpatient PROCEDURES Left heart catheterization Left ventriculogram Selective coronary gram INDICATION LV dysfunction, High risk abnormal Myoview, Regional wall motion abnormality Informed consent was obtained prior to the procedure. COMPLICATIONS NONE Estimated Blood Loss: LESS THNA 10 ML TECHNIQUE One percent lidocaine used to anesthetize the right anterior aspect of the wrist. The right radial artery was accessed via the Seldinger technique. A 6 English sheath was placed in the right radial artery. 2.5 mg of verapamil, 800 mcg of nitroglycerin, 1mg Lidocaine and 5000 U Heparin were given through the arterial sheath. The trap catheter was also used to perform left heart catheterization, left ventriculogram and selective coronary angiogram. At the end of the procedure the sheath was removed good hemostasis was achieved using Traclet band, patient was transferred to the postop holding area in stable condition. ANGIOGRAPHIC RESULTS The left main artery Normal The left anterior descending artery Normal The circumflex artery Large dominant normal The right coronary artery Small nondominant normal The GARCIA ventriculogram reveals Dilated ventricle with reduced ejection fraction estimated at 45-50% with anterior hypokinesis The left ventricular end-diastolic pressure Severely elevated at 40 mm of IMPRESSION Normal coronary arteries Dilated ventricle with reduced ejection fraction and regional wall motion abnormality Severely elevated LVEDP consistent with severe diastolic dysfunction PLAN 1. Diuresis 2. Treatment of LV dysfunction 3. Avoidance of pop/soda/soft drinks 4. Weight loss 5. Evaluation for sleep apnea 6. Start Entresto Electronically signed by : Gerardo Lyle, 01/20/2021 11:02:29
== END 2021-01-20 13:36 | disposition home or self-care (01) ==
LOC: CATHLAB 08:59
PROVIDERS: PCP Family Medicine; Visit Provider Internal Medicine
DX: I11.0 Hypertensive heart disease with heart failure (principal); E66.09 Other obesity due to excess calories; Z68.42 Body mass index [BMI] 45.0-49.9, adult; I27.20 Pulmonary hypertension, unspecified; I50.9 Heart failure, unspecified; E11.22 Type 2 diabetes mellitus with diabetic chronic kidney disease; N18.9 Chronic kidney disease, unspecified; J44.9 Chronic obstructive pulmonary disease, unspecified; Z79.899 Other long term (current) drug therapy; I25.10 Atherosclerotic heart disease of native coronary artery without angina pectoris; F17.210 Nicotine dependence, cigarettes, uncomplicated
CPT/HCPCS: 93458; 99152; C1725; C1760; C1769; J1644; Q9967

== ENCOUNTER → 2021-02-03 10:16 | Outpatient (CLI) | payer MEDICARE, MEDICAID, SELFPAY ==
[2021-02-03 12:31] LABS: Anion Gap 13.8 mEq/L (5-15); Blood Urea Nitrogen 27 mg/dl (9-20); Calcium 9.7 mg/dl (8.4-10.2); Carbon Dioxide 29 mmol/L (22.0-30.0); Chloride 99 mmol/L (98-107); Estimated Glomerular Filt Rate 33 ml/min (>60); GFR (African American) 40 ML/MIN (>60); Glucose 159 mg/dl (74-100); Potassium 4.8 mmoL/L (3.5-5.1); Sodium 137 mmol/L (136-145)
== END ==
PROVIDERS: Visit Provider Nurse Practitioner Family
DX: I11.9 Hypertensive heart disease without heart failure (principal); I27.20 Pulmonary hypertension, unspecified; I42.8 Other cardiomyopathies; I50.9 Heart failure, unspecified
CPT/HCPCS: 36415; 80048

== ENCOUNTER → 2021-02-09 07:09 | Outpatient (CLI) | payer MEDICARE, MEDICAID, SELFPAY ==
[2021-02-09 08:36] LABS: Chloride 104 mmol/L (98-107); Potassium 4.6 mmoL/L (3.5-5.1); Sodium 140 mmol/L (136-145)
[2021-02-09 08:39] LABS: Anion Gap 16.6 mEq/L (5-15); Blood Urea Nitrogen 27 mg/dl (9-20); Calcium 9.3 mg/dl (8.4-10.2); Carbon Dioxide 24 mmol/L (22.0-30.0); Estimated Glomerular Filt Rate 42 ml/min (>60); GFR (African American) 51 ML/MIN (>60); Glucose 161 mg/dl (74-100)
== END ==
PROVIDERS: Visit Provider Nurse Practitioner Family
DX: E78.5 Hyperlipidemia, unspecified (principal); I10 Essential (primary) hypertension; I50.9 Heart failure, unspecified
CPT/HCPCS: 36415; 80048

== ENCOUNTER → 2021-03-03 07:22 | Outpatient (CLI) | payer MEDICARE, MEDICAID, SELFPAY ==
--- NOTE | 2021-03-03 07:23 | CT_ITS ---
PROCEDURE: CT HR CHEST X3 CLINICAL HISTORY: SOA xmonths Hx of asthma Lupus COMPARISON: CT CTAC CTA-CHEST from 04/08/2016 TECHNIQUE: HRCT performed. Standard images performed along with high-resolution images and high-resolution images with expiration and prone positioning. Axial images obtained with sagittal and coronal reformats. All CT scans at the facility use one or more dose reduction, viz: automated exposure control, ma/kV adjustment per patient size (including targeted exams where dose is matched to indication, i.e. head), or iterative reconstruction technique. FINDINGS: Calcified mediastinal and hilar lymph nodes. Right paratracheal lymph node is present measuring 1.8 x 1.3 cm with a focus of calcification. Normal heart size. There is some mild scarring in the right middle lobe inferiorly. There is an irregular opacity in the left apex consistent with mild scarring with an associated small calcified nodule. No suspicious nodules are evident. No areas of consolidation or collapse. No effusions. High-resolution images are obtained. No interlobular septal thickening. No bronchiectasis. There is some minimal linear areas of slight increased density in the right bronchus intermedius and may be due to adherent mucus. Bilateral gynecomastia with mildly prominent nodes in the axilla. Diffuse fatty liver with hepatomegaly. The AP dimension of the liver is 28 cm. IMPRESSION: 1. No evidence of interstitial lung disease 2. Scattered areas of scarring with evidence of old granulomatous disease. 3. Hepatomegaly Dictated by: Kenroy Blount MD 03/04/2021 09:19 Kenroy Blount MD in [place] 03/04/2021 09:19
== END ==
PROVIDERS: PCP Family Medicine; Visit Provider Internal Medicine Pulmonary Disease
DX: R06.02 Shortness of breath (principal)
CPT/HCPCS: 71250

== ENCOUNTER → 2021-03-26 07:18 | Outpatient (CLI) | payer MEDICARE, MEDICAID, SELFPAY ==
[2021-03-26 09:10] LABS: Albumin Level 4.5 g/dl (3.5-5.0)
[2021-03-26 09:10] LABS: Chloride 102 mmol/L (98-107)
[2021-03-26 09:11] LABS: Potassium 4.1 mmoL/L (3.5-5.1); Sodium 141 mmol/L (136-145)
[2021-03-26 09:13] LABS: Blood Urea Nitrogen 22 mg/dl (9-20); Estimated Glomerular Filt Rate 31 ml/min (>60); GFR (African American) 38 ML/MIN (>60)
[2021-03-26 09:14] LABS: Phosphorous 3.5 mg/dl (2.5-4.5)
[2021-03-26 09:14] LABS: Anion Gap 19.1 mEq/L (5-15); Calcium 9.1 mg/dl (8.4-10.2); Carbon Dioxide 24 mmol/L (22.0-30.0); Glucose 174 mg/dl (74-100)
[2021-03-26 09:29] LABS: 25-OH Vitamin D, Total 30.9 ng/mL (30-100)
[2021-03-26 09:40] LABS: Intact Parathyroid Hormone 75.9 pg/mL (7.5-53.5)
[2021-03-26 10:02] LABS: Creatinine,Urine Random 150 mg/dL (Not Estab.); Microalbumin/Creatinine Ratio 2700.6
[2021-03-27 10:58] LABS: Prolactin 20.6 ng/mL (4.0-15.2)
[2021-03-27 16:22] LABS: Calcium, Ionized 4.9 mg/dL (4.5-5.6)
== END ==
PROVIDERS: Internal Medicine Nephrology; Visit Provider Internal Medicine
DX: D35.2 Benign neoplasm of pituitary gland (principal); N18.30 Chronic kidney disease, stage 3 unspecified
CPT/HCPCS: 36415; 80048; 82040; 82043; 82306; 82330; 82570; 83970; 84100; 84146

== ENCOUNTER → 2021-04-19 09:56 | Outpatient (POV) | payer MEDICARE, MEDICAID, SELFPAY | PROVIDERS: Visit Provider Internal Medicine Nephrology | DX: Z00.00 Encounter for general adult medical examination without abnormal findings (principal) ==

== ENCOUNTER → 2021-07-28 10:12 | Outpatient (CLI) | payer MEDICARE, MEDICAID, SELFPAY ==
[2021-07-28 13:59] LABS: Albumin Level 4.6 g/dl (3.5-5.0); Chloride 103 mmol/L (98-107); Potassium 4.8 mmoL/L (3.5-5.1); Sodium 139 mmol/L (136-145)
[2021-07-28 14:00] LABS: Basophils # 0.1 K/mm3 (0-0.2); Basophils % 1.4 % (0.1-2.0); Eosinophils # 0.3 K/mm3 (0.0-0.4); Hematocrit 49.4 % (42.0-52.0); Hemoglobin 16.3 g/dL (14.1-18.0); Lymphocytes # 1.8 K/mm3 (0.7-4.5); Lymphocytes % 23.1 % (10-50); Mean Corpuscular Hemoglobin 29.8 pg (27.0-31.2); Mean Corpuscular Volume 90.2 fl (80-94); Mean Platelet Volume 8.7 fl (7.4-10.4); Monocytes # 0.6 K/mm3 (0.1-1.0); Monocytes % 7.8 % (1.7-9.3); Neutrophils % 63.6 % (37.0-80.0); Platelet Count 363 K/mm3 (142-424); Red Blood Count 5.48 M/mm3 (4.60-6.20); Red Cell Distribution Width 14.4 % (11.5-17.5); White Blood Count 7.8 K/mm3 (4.8-10.8)
[2021-07-28 14:02] LABS: Anion Gap 16.8 mEq/L (5-15); Blood Urea Nitrogen 29 mg/dl (9-20); Carbon Dioxide 24 mmol/L (22.0-30.0); Estimated Glomerular Filt Rate 35 ml/min (>60); GFR (African American) 42 ML/MIN (>60); Phosphorous 4.9 mg/dl (2.5-4.5)
[2021-07-28 14:03] LABS: Calcium 9.7 mg/dl (8.4-10.2); Glucose 103 mg/dl (74-100)
[2021-07-28 15:06] LABS: Creatinine,Urine Random 115 mg/dL (Not Estab.)
== END ==
PROVIDERS: Visit Provider Internal Medicine Nephrology
DX: N18.32 Chronic kidney disease, stage 3b (principal); I10 Essential (primary) hypertension; R80.9 Proteinuria, unspecified
CPT/HCPCS: 36415; 80069; 82043; 82570; 85025

== ENCOUNTER → 2021-08-02 09:34 | Outpatient (POV) | payer MEDICARE, MEDICAID, SELFPAY | PROVIDERS: Visit Provider Internal Medicine Nephrology | DX: Z00.00 Encounter for general adult medical examination without abnormal findings (principal) ==

== ENCOUNTER 2021-09-12 10:35 | Emergency (ER) | payer MEDICARE, MEDICAID, SELFPAY ==
[2021-09-12 10:36] VITALS: BP 122/76; PULSE 82; RESP 18; TEMP 36.7; O2SAT 94; BMI 47.1
--- NOTE | 2021-09-12 10:52 | PC.NURSE ---
Vital signs unhooked for patient to go to bathroom. Pt in restroom at this time trying to provide urine sample.
--- NOTE | 2021-09-12 10:56 | PC.NURSE ---
urine collected and sent to the lab.
[2021-09-12 11:14] LABS: Microscopic, Urine URINE MICROSCOPIC (MICROSCOPIC)
[2021-09-12 11:15] LABS: Basophils # 0.2 K/mm3 (0-0.2); Basophils % 1.9 % (0.1-2.0); Eosinophils # 0.3 K/mm3 (0.0-0.4); Eosinophils % 3.2 % (0.1-12.0); Hematocrit 49.2 % (42.0-52.0); Lymphocytes # 1.7 K/mm3 (0.7-4.5); Lymphocytes % 17.7 % (10-50); Mean Corpuscular HGB Conc 32.6 g/dL (31.8-35.4); Mean Corpuscular Hemoglobin 29.2 pg (27.0-31.2); Mean Corpuscular Volume 89.6 fl (80-94); Monocytes # 0.5 K/mm3 (0.1-1.0); Monocytes % 5.7 % (1.7-9.3); Neutrophils # 6.7 K/mm3 (1.8-7.8); Neutrophils % 71.4 % (37.0-80.0); Platelet Count 295 K/mm3 (142-424); Red Blood Count 5.49 M/mm3 (4.60-6.20); Red Cell Distribution Width 15.5 % (11.5-17.5); White Blood Count 9.4 K/mm3 (4.8-10.8)
[2021-09-12 11:21] LABS: Appearance,Urine CLEAR (Clear); Bilirubin,Urine Negative (Negative); Blood, Urine TRACE-I (Negative); Color,Urine YELLOW (Yellow); Glucose,Urine (UA) TRACE (Negative); Ketones,Urine Negative (Negative); Leukocyte Esterase,Urine Negative (Negative); Nitrate,Urine Negative (Negative); Protein,Urine 2+ (Negative); Urobilinogen,Urine 0.2 EU/dl (0.2)
[2021-09-12 11:22] LABS: Chloride 105 mmol/L (98-107); Potassium 4.4 mmoL/L (3.5-5.1); Sodium 137 mmol/L (136-145)
[2021-09-12 11:24] LABS: Alanine Aminotransferase 57 U/L (12-78); Aspartate Amino Transferase 43 U/L (17-59); Blood Urea Nitrogen 18 mg/dl (9-20); Creatinine Clearance Estimated 42 mL/min (50-200); Estimated Glomerular Filt Rate 33 ml/min (>60); GFR (African American) 40 ML/MIN (>60)
[2021-09-12 11:25] LABS: Albumin Level 4.8 g/dl (3.5-5.0); Albumin/Globulin Ratio 1.5 (1.1-1.8); Alkaline Phosphatase 61 U/L (38-126); Anion Gap 11.4 mEq/L (5-15); Bilirubin,Total 0.5 mg/dl (0.2-1.3); Calcium 8.5 mg/dl (8.4-10.2); Carbon Dioxide 25 mmol/L (22.0-30.0); Globulin 3.1 g/dL (1.3-3.2); Glucose 110 mg/dl (74-100); Total Protein,Serum 7.9 g/dl (6.3-8.2)
[2021-09-12 11:29] VITALS: BP 113/65; PULSE 69; O2SAT 95
[2021-09-12 11:33] LABS: Squamous Epithelial Cell,Urine Occasional #/hpf (0-5); WBC,Urine Occasional #/hpf (0-3)
[2021-09-12 12:00] VITALS: BP 105/77; PULSE 70; O2SAT 97
--- NOTE | 2021-09-12 12:18 | HMH.EDGENADL ---
ED Disposition Clinical Impression: Fatigue Disposition: Home, Self-Care Condition on Discharge: Good Instructions: DI for Fatigue Additional Instructions: Please follow up with your primary care physician in 2-3 days for further management. Please continue to use your diuretics as prescribed. Please continue to monitor your urinary output and bring diary log to your next doctors appointment. Please return if you have difficulty urinating, chest pain, difficulty breathing, symptoms that don't improve or any other worsening symptoms. Referrals: Jasbir Vaca MD [Primary Care Provider] - Time of Disposition: 12:35 - Critical Care Critical Care Time: No Attestation: On 09/12/21, the high probability of a clinically significant, sudden or life threatening deterioration of the following system(s) required my full and direct attention, intervention and personal management. The time I documented below is in addition to time spent performing reported procedures but includes the following listed in this critical care notation. Medical Decision Making - Medical Records Medical records reviewed: Yes: I reviewed the patient's medical records. - Jorge Inquiry Pt receiving controlled substance: No Vital Signs: 09/12/21 10:36 09/12/21 11:29 09/12/21 12:00 Temperature 98.1 F Temperature Source Oral Pulse Rate 69 70 Pulse Rate [Right Radial] 82 Respiratory Rate 18 Blood Pressure 113/65 105/77 L Blood Pressure [Right Arm] 122/76 Blood Pressure Mean [Right Arm] 91 Blood Pressure Source [Right Arm] Automatic Cuff Blood Pressure Position [Right Arm] Sitting 02 Sat by Pulse Oximetry 94 L 95 97 Oxygen Delivery Method Room Air Room Air Room Air 09/12/21 12:30 09/12/21 12:59 Temperature 98.4 F Temperature Source Pulse Rate 66 66 Pulse Rate [Right Radial] Respiratory Rate 16 Blood Pressure 120/86 120/86 Blood Pressure [Right Arm] Blood Pressure Mean [Right Arm] Blood Pressure Source [Right Arm] Blood Pressure Position [Right Arm] 02 Sat by Pulse Oximetry 94 L Oxygen Delivery Method Room Air - Lab Data Lab results reviewed: Yes: I reviewed the patient's lab results. Lab Results 09/12/21 10:54: Urine Color Yellow, Urine Appearance Clear, Urine pH 6.0, Ur Specific [place] 1.020, Urine Protein 2+, Urine Glucose (UA) Trace, Urine Ketones Negative, Urine Blood Trace-i, Urine Nitrate Negative, Urine Bilirubin Negative, Urine Urobilinogen 0.2, Ur Leukocyte Esterase Negative, Urine WBC Occasional, Ur Squamous Epith Cells Occasional 09/12/21 11:04: WBC 9.4, RBC 5.49, Hgb 16.0, Hct 49.2, MCV 89.6, MCH 29.2, MCHC 32.6, RDW 15.5, Plt Count 295, MPV 8.0, Neut % (Auto) 71.4, Lymph % (Auto) 17.7, [place] % (Auto) 5.7, Eos % (Auto) 3.2, Baso % (Auto) 1.9, Neut # (Auto) 6.7, Lymph # (Auto) 1.7, [place] # (Auto) 0.5, Eos # (Auto) 0.3, Baso # (Auto) 0.2 09/12/21 11:04: Sodium 137, Potassium 4.4, Chloride 105, Carbon Dioxide 25, Anion Gap 11.4, BUN 18, Creatinine 2.20 H, Estimated Creat Clear 42, Estimated GFR 33 L, Est GFR ( Amer) 40 L, Glucose 110 H, Calcium 8.5, Total Bilirubin 0.5, AST 43, ALT 57, Alkaline Phosphatase 61, Total Protein 7.9, Albumin 4.8, Globulin 3.1, Albumin/Globulin Ratio 1.5 Result diagrams: 09/12/21 11:04 09/12/21 11:04 Medical Decision Narrative: Mr. Kwok is a 41 yo male w/ PMH for CKD who presents to the ED for 2d of generalized weakness and reduced urinary output. Patient is afebrile and hemodynamicaly stable on arrival. Physical exam benign. Patient non toxic appearing. Skin turgor normal, good cap refill and moist mucous membranes, no clinical signs of dehydration. Patient denies any infectious sx or new medication use. Differentials to consider include: infectious etiology, UTI, BEATRICE, obstructive nephropathy (BPH etc). Basic labs, UA, are remarkable for clean urine. Cr 2.2, which is baseline for the patient. Albumin normal. Patient is eating and drinking appropriately and
[2021-09-12 12:30] VITALS: BP 120/86; PULSE 66; O2SAT 94
[2021-09-12 12:59] VITALS: BP 120/86; PULSE 66; RESP 16; TEMP 36.9; O2SAT 94
== END 2021-09-12 13:00 | disposition home or self-care (01) ==
PROVIDERS: Emergency Provider Student in an Organized Health Care Education/Training Program; PCP Family Medicine
DX: R53.83 Other fatigue (principal); N18.30 Chronic kidney disease, stage 3 unspecified; E78.5 Hyperlipidemia, unspecified; F33.1 Major depressive disorder, recurrent, moderate; I25.10 Atherosclerotic heart disease of native coronary artery without angina pectoris; I13.0 Hypertensive heart and chronic kidney disease with heart failure and stage 1 through stage 4 chronic kidney disease, or unspecified chronic kidney disease; F17.210 Nicotine dependence, cigarettes, uncomplicated; E11.22 Type 2 diabetes mellitus with diabetic chronic kidney disease
CPT/HCPCS: 80053; 81001; 85025; 99282

== ENCOUNTER 2021-11-20 09:02 | Emergency (ER) | payer MEDICARE, MEDICAID, SELFPAY ==
--- NOTE | 2021-11-20 09:09 | XR_ITS ---
PROCEDURE INFORMATION: Exam: XR Left Foot Exam date and time: 11/20/2021 9:08 AM Age: 41 years old Clinical indication: Foot; Left; Patient HX: PT gets frequent stress fractures due to kidney disease, pain around big toe TECHNIQUE: Imaging protocol: XR Left foot. Views: 3 or more views. COMPARISON: CR XR FOOT LT MIN 3V 04/15/2020 12:18 PM FINDINGS: Bones/joints: No acute fracture or malalignment. Mild 1st MTP joint degenerative changes. Soft tissues: Normal. IMPRESSION: No acute fracture or malalignment.
[2021-11-20 09:29] VITALS: BP 138/103; PULSE 70; RESP 19; TEMP 36.6; O2SAT 98; BMI 46.2
--- NOTE | 2021-11-20 10:28 | HMH.EDUTC ---
[facility] [place] Disposition Clinical Impression: Left foot pain Diabetes Qualifiers: Diabetes mellitus type: other specified (including ARLEN) Diabetes mellitus longterm insulin use: unspecified longterm insulin use status Diabetes mellitus complication status: with other specified complication Qualified Code(s): E13.69 - Other specified diabetes mellitus with other specified complication Chronic renal failure, stage 3 (moderate) Qualifiers: Chronic kidney disease stage 3 subtype: unspecified whether 3a or 3b Qualified Code(s): N18.30 - Chronic kidney disease, stage 3 unspecified Gout Qualifiers: Gout site: foot Gout etiology: due to renal impairment Chronicity: acute Laterality: left Qualified Code(s): 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 Take tylenol for pain. Follow up with Dr. Zhao (podiatry). Sometimes there can be fractures that don't show up well on the first set of x-rays. So, especially with being a diabetic, you should follow up with a wire brusher. I put in a referral but you need to call her office and schedule an appointment. Follow up with your regular doctor. GO TO THE ER FOR ANY WORSENING SYMPTOMS I will call you with the results of your blood work with in the next couple of hours and we will go from there. Prescriptions: Colchicine 0.6 mg PO Q1H #3 tab Transmission Status: Received by [facility] Referrals: Jasbir Vaca MD [Primary Care Provider] - Karolyn Zhao DPM [Staff Physician] - Time of Disposition: 10:32 Medical Decision Making - Medical Records Medical records reviewed: No: I reviewed the patient's medical records. - Jorge Inquiry Pt receiving controlled substance: No Vital Signs: 11/20/21 09:29 11/20/21 10:46 Temperature 97.9 F 97.9 F Temperature Source Oral Pulse Rate 70 Pulse Rate [Left Radial] 70 Respiratory Rate 19 19 Blood Pressure 130/99 H Blood Pressure [Right Arm] 138/103 H Blood Pressure Mean [Right Arm] 114 02 Sat by Pulse Oximetry 98 - Lab Data Lab Results 11/20/21 10:42: Uric Acid 10.7 H 11/20/21 10:42: WBC 10.6, RBC 5.17, Hgb 15.7, Hct 47.2, MCV 91.2, MCH 30.3, MCHC 33.2, RDW 15.7, Plt Count 264, MPV 8.3, Neut % (Auto) 72.0, Lymph % (Auto) 17.0, [place] % (Auto) 6.9, Eos % (Auto) 2.3, Baso % (Auto) 1.7, Neut # (Auto) 7.7, Lymph # (Auto) 1.8, [place] # (Auto) 0.7, Eos # (Auto) 0.2, Baso # (Auto) 0.2 11/20/21 10:42: Sodium 138, Potassium 4.4, Chloride 104, Carbon Dioxide 27, Anion Gap 11.4, BUN 21 H, Creatinine 2.10 H, Estimated Creat Clear 44, Estimated GFR 35 L, Est GFR ( Amer) 42 L, Glucose 90, Calcium 9.0 Result diagrams: 11/20/21 10:42 11/20/21 10:42 Orders (Tests/Meds): ED MEDICATIONS Discontinued Medications Generic Name Dose Route Start Last Admin Trade Name Freq PRN Reason Stop Dose Admin Acetaminophen 975 mg 11/20/21 10:11 11/20/21 10:11 Acetaminophen 325mg Tab PO 11/20/21 10:12 975 mg ONCE ONE Administration - Radiology Data #1 Image(s): Foot/Toes Image Reviewed: Yes I reviewed the patient's radiology image, Yes I have reviewed radiologist's interpretation Preliminary Findings: No Fracture Seen PROCEDURE INFORMATION: Exam: XR Left Foot Exam date and time: 11/20/2021 9:08 AM Age: 41 years old Clinical indication: Foot; Left; Patient HX: PT gets frequent stress fractures due to kidney disease, pain around big toe TECHNIQUE: Imaging protocol: XR Left foot. Views: 3 or more views. COMPARISON: CR XR FOOT LT MIN 3V 04/15/2020 12:18 PM FINDINGS: Bones/joints: No acute fracture or malalignment. Mild 1st MTP joint degenerative changes. Soft tissues: Normal. IMPRESSION: No acute fracture or malalignment. Electronically sign
[2021-11-20 10:46] VITALS: BP 130/99; PULSE 70; RESP 19; TEMP 36.6
[2021-11-20 11:15] LABS: Uric Acid 10.7 mg/dl (3.5-8.5)
[2021-11-20 11:16] LABS: Anion Gap 11.4 mEq/L (5-15); Blood Urea Nitrogen 21 mg/dl (9-20); Carbon Dioxide 27 mmol/L (22.0-30.0); Chloride 104 mmol/L (98-107); Creatinine Clearance Estimated 44 mL/min (50-200); Estimated Glomerular Filt Rate 35 ml/min (>60); GFR (African American) 42 ML/MIN (>60); Glucose 90 mg/dl (74-100); Potassium 4.4 mmoL/L (3.5-5.1); Sodium 138 mmol/L (136-145)
[2021-11-20 11:19] LABS: Basophils # 0.2 K/mm3 (0-0.2); Basophils % 1.7 % (0.1-2.0); Eosinophils # 0.2 K/mm3 (0.0-0.4); Eosinophils % 2.3 % (0.1-12.0); Hematocrit 47.2 % (42.0-52.0); Hemoglobin 15.7 g/dL (14.1-18.0); Lymphocytes # 1.8 K/mm3 (0.7-4.5); Mean Corpuscular HGB Conc 33.2 g/dL (31.8-35.4); Mean Corpuscular Hemoglobin 30.3 pg (27.0-31.2); Mean Corpuscular Volume 91.2 fl (80-94); Mean Platelet Volume 8.3 fl (7.4-10.4); Monocytes # 0.7 K/mm3 (0.1-1.0); Monocytes % 6.9 % (1.7-9.3); Neutrophils # 7.7 K/mm3 (1.8-7.8); Platelet Count 264 K/mm3 (142-424); Red Blood Count 5.17 M/mm3 (4.60-6.20); Red Cell Distribution Width 15.7 % (11.5-17.5); White Blood Count 10.6 K/mm3 (4.8-10.8)
== END 2021-11-20 10:48 | disposition home or self-care (01) ==
PROVIDERS: Emergency Provider Nurse Practitioner Family; PCP Family Medicine
DX: M79.672 Pain in left foot (principal); M10.372 Gout due to renal impairment, left ankle and foot; R07.9 Chest pain, unspecified; I13.0 Hypertensive heart and chronic kidney disease with heart failure and stage 1 through stage 4 chronic kidney disease, or unspecified chronic kidney disease; I50.9 Heart failure, unspecified; N18.30 Chronic kidney disease, stage 3 unspecified; I25.10 Atherosclerotic heart disease of native coronary artery without angina pectoris; E78.5 Hyperlipidemia, unspecified; E11.22 Type 2 diabetes mellitus with diabetic chronic kidney disease; K76.9 Liver disease, unspecified; M32.9 Systemic lupus erythematosus, unspecified; G47.33 Obstructive sleep apnea (adult) (pediatric); J44.9 Chronic obstructive pulmonary disease, unspecified; J98.4 Other disorders of lung; F17.210 Nicotine dependence, cigarettes, uncomplicated; Z79.4 Long term (current) use of insulin; Z79.51 Long term (current) use of inhaled steroids; Z79.899 Other long term (current) drug therapy; Z88.0 Allergy status to penicillin; Z88.6 Allergy status to analgesic agent; Z82.49 Family history of ischemic heart disease and other diseases of the circulatory system; Z83.3 Family history of diabetes mellitus
CPT/HCPCS: 29515; 73630; 80048; 84550; 85025; 99213; G0463

== ENCOUNTER 2021-11-30 11:04 | Emergency (ER) | payer MEDICARE, MEDICAID, SELFPAY ==
--- NOTE | 2021-11-30 11:47 | XR_ITS ---
FINAL REPORT CLINICAL HISTORY: splinter in anterior portion of left pointer finger FINDINGS: LEFT HAND: 3 views of the left hand were obtained. There is no acute fracture or dislocation. Visualized joint spaces are normally aligned. No radiopaque foreign body identified. IMPRESSION: No acute fracture or foreign body. Reviewed, Interpreted and Dictated by Dio Meza III, MD Transcribed by Jostin Verdin Authenticated by Dio Meza III, MD on 11/30/2021 01:23:30 PM [facility]
[2021-11-30 12:01] VITALS: BP 122/73; PULSE 89; RESP 20; TEMP 36.6; O2SAT 98; BMI 47.0
[2021-11-30 13:36] VITALS: BP 122/73; PULSE 89; RESP 20; TEMP 36.6
== END 2021-11-30 13:36 | disposition left against medical advice (07) ==
LOC: UTC 11:06
PROVIDERS: Emergency Provider Nurse Practitioner Family; PCP Family Medicine
DX: S60.451A Superficial foreign body of left index finger, initial encounter (principal)
CPT/HCPCS: 73130

== ENCOUNTER → 2022-02-02 12:24 | Outpatient (CLI) | payer MEDICARE, MEDICAID, SELFPAY ==
[2022-02-02 13:09] LABS: Albumin Level 3.9 g/dl (3.5-5.0); Anion Gap 11.2 mEq/L (5-15); Blood Urea Nitrogen 16 mg/dl (9-20); Calcium 9.2 mg/dl (8.4-10.2); Carbon Dioxide 25 mmol/L (22.0-30.0); Chloride 106 mmol/L (98-107); Estimated Glomerular Filt Rate 51 ml/min (>60); GFR (African American) 62 ML/MIN (>60); Glucose 136 mg/dl (74-100); Phosphorous 4.1 mg/dl (2.5-4.5); Potassium 4.2 mmoL/L (3.5-5.1); Sodium 138 mmol/L (136-145)
[2022-02-02 13:25] LABS: 25-OH Vitamin D, Total 14.1 ng/mL (30-100)
[2022-02-02 15:01] LABS: Creatinine,Urine Random 142 mg/dL (Not Estab.)
== END ==
PROVIDERS: PCP Family Medicine; Visit Provider Internal Medicine Nephrology
DX: N18.32 Chronic kidney disease, stage 3b (principal)
CPT/HCPCS: 36415; 80069; 82306; 82570

== ENCOUNTER → 2022-02-14 09:42 | Outpatient (POV) | payer MEDICARE, SELFPAY | PROVIDERS: Visit Provider Internal Medicine Nephrology | DX: Z00.00 Encounter for general adult medical examination without abnormal findings (principal) ==

== ENCOUNTER → 2022-06-02 10:13 | Outpatient (CLI) | payer MEDICARE, MEDICAID, SELFPAY ==
--- NOTE | 2022-06-02 10:19 | XR_ITS ---
FINAL REPORT CLINICAL HISTORY: RT knee pain COMPARISON: 06/02/2020 FINDINGS: RIGHT KNEE 3 views of the right knee were obtained. There is no acute fracture or dislocation. Visualized joint spaces are normally aligned. There are mild degenerative changes. There is spurring along the tibial tubercle. Soft tissues are unremarkable. IMPRESSION: Mild degenerative changes with no acute bony abnormality. Reviewed, Interpreted and Dictated by Dio Meza III, MD Transcribed by Helena Campa Authenticated and [facility]
== END ==
PROVIDERS: PCP Family Medicine; Visit Provider Orthopaedic Surgery
DX: M25.561 Pain in right knee (principal)
CPT/HCPCS: 73562

== ENCOUNTER → 2022-06-17 08:35 | Outpatient (CLI) | payer MEDICARE, MEDICAID, SELFPAY ==
--- NOTE | 2022-06-17 08:57 | MR_ITS ---
FINAL REPORT CLINICAL HISTORY: Knee pain. history knee surgery years ago. swelling in knee. lateral and medial sided knee pain. knee instability. COMPARISON: 06/19/2020 FINDINGS: Multi planar MR imaging was performed of the right knee. The anterior and posterior cruciate ligaments are intact. The quadriceps and patellar tendons are intact. There is a full-thickness tear of the posterior horn of the medial meniscus, more evident than previous. The lateral meniscus is intact. The medial and lateral collateral ligaments appear intact. The medial and lateral retinacula appear intact. There is a mild osteochondral injury along the articular surface of the medial femoral condyle, more evident than previous. Moderate joint effusion is identified. No evidence of soft tissue inflammatory reaction. IMPRESSION: Full-thickness tear posterior horn of the medial meniscus with osteochondral injury of the medial femoral condyle. Findings are more evident than previous. Reviewed, Interpreted and Dictated by Yao Contreras MD Transcribed by Lara Dolan Authenticated and [facility]
[2022-06-17 10:57] LABS: 25-OH Vitamin D, Total < 12.8 ng/mL (30-100)
[2022-06-17 13:13] LABS: Creatinine,Urine Random 104 mg/dL (Not Estab.)
== END ==
PROVIDERS: Internal Medicine Endocrinology, Diabetes & Metabolism; Internal Medicine Nephrology; PCP Family Medicine; Visit Provider Physician Assistant Surgical
DX: N18.32 Chronic kidney disease, stage 3b; M25.561 Pain in right knee; D35.2 Benign neoplasm of pituitary gland; R80.9 Proteinuria, unspecified; I10 Essential (primary) hypertension; M81.0 Age-related osteoporosis without current pathological fracture
CPT/HCPCS: 36415; 73721; 82043; 82306; 82570; 84146; 84155

== ENCOUNTER → 2022-08-31 14:52 | Outpatient (CLI) | payer MEDICARE, MEDICAID, SELFPAY ==
[2022-08-31 15:30] LABS: Albumin Level 3.8 g/dl (3.5-5.0); Anion Gap 10.4 mEq/L (5-15); Blood Urea Nitrogen 17 mg/dl (9-20); Calcium 8.9 mg/dl (8.4-10.2); Carbon Dioxide 22 mmol/L (22.0-30.0); Chloride 109 mmol/L (98-107); Estimated Glomerular Filt Rate 47 ml/min (>60); GFR (African American) 57 ML/MIN (>60); Glucose 154 mg/dl (74-100); Phosphorous 3.9 mg/dl (2.5-4.5); Potassium 4.4 mmoL/L (3.5-5.1); Sodium 137 mmol/L (136-145)
[2022-08-31 15:54] LABS: 25-OH Vitamin D, Total < 12.8 ng/mL (30-100)
[2022-08-31 22:44] LABS: Creatinine,Urine Random 95 mg/dL (Not Estab.)
[2022-09-01 02:52] LABS: Microalbumin > 1140.000 mg/L (0-16.7)
== END ==
PROVIDERS: PCP Internal Medicine Nephrology; Visit Provider Family Medicine
DX: N18.32 Chronic kidney disease, stage 3b (principal); R80.9 Proteinuria, unspecified; M81.0 Age-related osteoporosis without current pathological fracture; I10 Essential (primary) hypertension
CPT/HCPCS: 80069; 82043; 82306; 82570; 84155

== ENCOUNTER → 2022-09-05 11:46 | Outpatient (POV) | payer MEDICARE, SELFPAY | PROVIDERS: Visit Provider Internal Medicine Nephrology | DX: Z00.00 Encounter for general adult medical examination without abnormal findings (principal) ==

== ENCOUNTER → 2022-09-30 12:39 | Outpatient (CLI) | payer MEDICARE, MEDICAID, SELFPAY ==
[2022-09-30 11:33] LABS: Basophils # 0.1 K/mm3 (0-0.2); Basophils % 1.2 % (0.1-2.0); Eosinophils # 0.4 K/mm3 (0.0-0.4); Eosinophils % 4.2 % (0.1-12.0); Hematocrit 46.3 % (42.0-52.0); Hemoglobin 15.7 g/dL (14.1-18.0); Lymphocytes # 1.6 K/mm3 (0.7-4.5); Lymphocytes % 17.7 % (10-50); Mean Corpuscular Hemoglobin 30.3 pg (27.0-31.2); Mean Corpuscular Volume 89.2 fl (80-94); Mean Platelet Volume 8.9 fl (7.4-10.4); Monocytes # 0.5 K/mm3 (0.1-1.0); Monocytes % 5.3 % (1.7-9.3); Neutrophils # 6.3 K/mm3 (1.8-7.8); Neutrophils % 71.6 % (37.0-80.0); Platelet Count 277 K/mm3 (142-424); Red Blood Count 5.19 M/mm3 (4.60-6.20); Red Cell Distribution Width 14.7 % (11.5-17.5); White Blood Count 8.9 K/mm3 (4.8-10.8)
[2022-09-30 11:38] LABS: Chloride 107 mmol/L (98-107); Potassium 4.4 mmoL/L (3.5-5.1); Sodium 137 mmol/L (136-145)
[2022-09-30 11:40] LABS: Alanine Aminotransferase 76 U/L (12-78); Aspartate Amino Transferase 55 U/L (17-59); Blood Urea Nitrogen 23 mg/dl (9-20); Estimated Glomerular Filt Rate 39 ml/min (>60); GFR (African American) 47 ML/MIN (>60)
[2022-09-30 11:41] LABS: Albumin Level 3.8 g/dl (3.5-5.0); Albumin/Globulin Ratio 1.5 (1.1-1.8); Alkaline Phosphatase 95 U/L (38-126); Anion Gap 11.4 mEq/L (5-15); Bilirubin,Total 0.4 mg/dl (0.2-1.3); Calcium 8.8 mg/dl (8.4-10.2); Carbon Dioxide 23 mmol/L (22.0-30.0); Chol/HDL Ratio 7.3 (1-3.5); Cholesterol 235 mg/dl (140-200); Globulin 2.6 g/dL (1.3-3.2); Glucose 159 mg/dl (74-100); HDL Cholesterol 32 mg/dl (40-60); Total Protein,Serum 6.4 g/dl (6.3-8.2)
[2022-09-30 11:50] LABS: Triglycerides 793 mg/dl (30-150)
[2022-09-30 11:52] LABS: Direct LDL Cholesterol 61.32 mg/dL (100-129)
[2022-09-30 11:53] LABS: Hemoglobin A1C 6.1 % (4.0-6.0)
[2022-09-30 12:12] LABS: Thyroid Stimulating Hormone 2.08 uIU/mL (0.465-4.68)
== END ==
PROVIDERS: PCP Family Medicine; Visit Provider Family Medicine
DX: I11.0 Hypertensive heart disease with heart failure; I50.32 Chronic diastolic (congestive) heart failure; Z00.00 Encounter for general adult medical examination without abnormal findings; R53.83 Other fatigue; E13.69 Other specified diabetes mellitus with other specified complication
CPT/HCPCS: 80053; 80061; 83036; 84443; 85025

== ENCOUNTER → 2022-12-13 16:17 | Outpatient (CLI) | payer MEDICARE, MEDICAID, SELFPAY ==
[2022-12-13 17:33] LABS: Chloride 102 mmol/L (98-107); Sodium 138 mmol/L (136-145)
[2022-12-13 17:34] LABS: Albumin Level 4.1 g/dl (3.5-5.0); Potassium 4.8 mmoL/L (3.5-5.1)
[2022-12-13 17:36] LABS: Anion Gap 16.8 mEq/L (5-15); Blood Urea Nitrogen 18 mg/dl (9-20); Carbon Dioxide 24 mmol/L (22.0-30.0); Estimated Glomerular Filt Rate 25 ml/min (>60); GFR (African American) 30 ML/MIN (>60)
[2022-12-13 17:37] LABS: Calcium 9.4 mg/dl (8.4-10.2); Glucose 74 mg/dl (74-100); Phosphorous 4.2 mg/dl (2.5-4.5)
[2022-12-13 17:45] LABS: Creatinine,Urine Random 85 mg/dL (Not Estab.); Microalbumin > 190.000 mg/L (0-16.7); Microalbumin/Creatinine Ratio 223.5
[2022-12-13 18:55] LABS: 25-OH Vitamin D, Total 26.4 ng/mL (30-100)
== END ==
PROVIDERS: Internal Medicine Nephrology; PCP Family Medicine; Visit Provider Family Medicine
DX: N18.30 Chronic kidney disease, stage 3 unspecified (principal)
CPT/HCPCS: 80069; 82043; 82306; 82570; 84155

== ENCOUNTER → 2023-01-30 16:35 | Outpatient (CLI) | payer MEDICARE, MEDICAID, SELFPAY ==
[2023-01-30 16:46] LABS: Albumin Level 4.1 g/dl (3.5-5.0); Chloride 107 mmol/L (98-107); Sodium 140 mmol/L (136-145)
[2023-01-30 16:49] LABS: Blood Urea Nitrogen 46 mg/dl (9-20); Carbon Dioxide 21 mmol/L (22.0-30.0); Estimated Glomerular Filt Rate 27 ml/min (>60); GFR (African American) 33 ML/MIN (>60); Phosphorous 5.1 mg/dl (2.5-4.5)
[2023-01-30 16:50] LABS: Calcium 9.1 mg/dl (8.4-10.2); Glucose 161 mg/dl (74-100)
[2023-01-30 16:52] LABS: Creatinine,Urine Random 116 mg/dL (Not Estab.)
== END ==
PROVIDERS: Visit Provider Nurse Practitioner
DX: N17.9 Acute kidney failure, unspecified (principal); N18.9 Chronic kidney disease, unspecified
CPT/HCPCS: 80069; 82570; 84155

== ENCOUNTER → 2023-02-08 19:34 | Outpatient (CLI) | payer MEDICARE, MEDICAID, SELFPAY ==
[2023-02-08 19:50] LABS: Microscopic, Urine URINE MICROSCOPIC (MICROSCOPIC)
[2023-02-08 20:27] LABS: Albumin Level 4.4 g/dl (3.5-5.0); Anion Gap 15.9 mEq/L (5-15); Blood Urea Nitrogen 45 mg/dl (9-20); Calcium 9.7 mg/dl (8.4-10.2); Carbon Dioxide 22 mmol/L (22.0-30.0); Chloride 108 mmol/L (98-107); Estimated Glomerular Filt Rate 30 ml/min (>60); GFR (African American) 36 ML/MIN (>60); Glucose 189 mg/dl (74-100); Phosphorous 4.9 mg/dl (2.5-4.5); Potassium 5.9 mmoL/L (3.5-5.1); Sodium 140 mmol/L (136-145)
[2023-02-08 20:39] LABS: Intact Parathyroid Hormone 46.2 pg/mL (7.5-53.5)
[2023-02-08 20:44] LABS: 25-OH Vitamin D, Total 18.7 ng/mL (30-100)
[2023-02-08 21:11] LABS: Appearance,Urine CLEAR (Clear); Bilirubin,Urine Negative (Negative); Blood, Urine TRACE-I (Negative); Color,Urine YELLOW (Yellow); Glucose,Urine (UA) Negative (Negative); Ketones,Urine Negative (Negative); Leukocyte Esterase,Urine Negative (Negative); Nitrate,Urine Negative (Negative); PH,Urine 5.5 (5.0-8.5); Protein,Urine 2+ (Negative); Urobilinogen,Urine 0.2 EU/dl (0.2)
[2023-02-08 21:20] LABS: Creatinine,Urine Random 58 mg/dL (Not Estab.)
== END ==
PROVIDERS: PCP Nurse Practitioner; Visit Provider Nurse Practitioner
DX: N18.31 Chronic kidney disease, stage 3a (principal)
CPT/HCPCS: 80069; 81001; 82306; 82570; 83970; 84155

== ENCOUNTER → 2023-06-12 08:42 | Outpatient (CLI) | payer MEDICARE, MEDICAID, SELFPAY ==
[2023-06-12 17:42] LABS: Chloride 104 mmol/L (98-107); Potassium 4.3 mmoL/L (3.5-5.1); Sodium 138 mmol/L (136-145)
[2023-06-12 17:45] LABS: Alanine Aminotransferase 61 U/L (12-78); Albumin Level 4.4 g/dl (3.5-5.0); Albumin/Globulin Ratio 1.8 (1.1-1.8); Alkaline Phosphatase 53 U/L (38-126); Anion Gap 13.3 mEq/L (5-15); Aspartate Amino Transferase 55 U/L (17-59); Bilirubin,Total 0.3 mg/dl (0.2-1.3); Blood Urea Nitrogen 19 mg/dl (9-20); Calcium 8.6 mg/dl (8.4-10.2); Carbon Dioxide 25 mmol/L (22.0-30.0); Estimated Glomerular Filt Rate 33 ml/min (>60); GFR (African American) 40 ML/MIN (>60); Globulin 2.5 g/dL (1.3-3.2); Glucose 88 mg/dl (74-100); Total Protein,Serum 6.9 g/dl (6.3-8.2)
[2023-06-12 17:53] LABS: Basophils # 0.1 K/mm3 (0-0.2); Basophils % 0.9 % (0.1-2.0); Eosinophils # 0.2 K/mm3 (0.0-0.4); Eosinophils % 2.2 % (0.1-12.0); Hematocrit 40.3 % (42.0-52.0); Hemoglobin 13.9 g/dL (14.1-18.0); Lymphocytes # 1.4 K/mm3 (0.7-4.5); Lymphocytes % 19.2 % (10-50); Mean Corpuscular HGB Conc 34.4 g/dL (31.8-35.4); Mean Corpuscular Hemoglobin 32.3 pg (27.0-31.2); Mean Corpuscular Volume 93.8 fl (80-94); Mean Platelet Volume 8.7 fl (7.4-10.4); Monocytes # 0.9 K/mm3 (0.1-1.0); Monocytes % 12.5 % (1.7-9.3); Neutrophils # 4.7 K/mm3 (1.8-7.8); Neutrophils % 65.3 % (37.0-80.0); Platelet Count 262 K/mm3 (142-424); Red Blood Count 4.29 M/mm3 (4.60-6.20); White Blood Count 7.2 K/mm3 (4.8-10.8)
== END ==
LOC: LAB.DROPOF 06-13 08:42
PROVIDERS: PCP Nurse Practitioner Family; Visit Provider Nurse Practitioner Family
DX: N17.9 Acute kidney failure, unspecified (principal); N18.30 Chronic kidney disease, stage 3 unspecified; R35.0 Frequency of micturition
CPT/HCPCS: 80053; 85025

== ENCOUNTER 2023-12-27 09:27 | Outpatient (CLI) | payer MEDICARE, MEDICAID, SELFPAY ==
[2023-12-27 16:33] LABS: Basophils # 0.1 K/mm3 (0-0.2); Basophils % 1.2 % (0.1-2.0); Eosinophils # 0.4 K/mm3 (0.0-0.4); Eosinophils % 3.9 % (0.1-12.0); Hematocrit 40.3 % (42.0-52.0); Lymphocytes % 19.4 % (10-50); Mean Corpuscular HGB Conc 32.1 g/dL (31.8-35.4); Mean Corpuscular Hemoglobin 31.7 pg (27.0-31.2); Mean Corpuscular Volume 98.8 fl (80-94); Mean Platelet Volume 9.4 fl (7.4-10.4); Monocytes # 0.6 K/mm3 (0.1-1.0); Monocytes % 6.1 % (1.7-9.3); Neutrophils # 7.1 K/mm3 (1.8-7.8); Neutrophils % 69.3 % (37.0-80.0); Platelet Count 282 K/mm3 (142-424); Red Blood Count 4.08 M/mm3 (4.60-6.20); Red Cell Distribution Width 15.1 % (11.5-17.5); White Blood Count 10.3 K/mm3 (4.8-10.8)
[2023-12-27 16:56] LABS: Alanine Aminotransferase 46 U/L (12-78); Albumin/Globulin Ratio 1.4 (1.1-1.8); Alkaline Phosphatase 77 U/L (38-126); Anion Gap 18.7 mEq/L (5-15); Aspartate Amino Transferase 45 U/L (17-59); Bilirubin,Total 0.4 mg/dl (0.2-1.3); Blood Urea Nitrogen 34 mg/dl (9-20); Calcium 9.8 mg/dl (8.4-10.2); Carbon Dioxide 18 mmol/L (22.0-30.0); Chloride 108 mmol/L (98-107); Chol/HDL Ratio 7.2 (1-3.5); Cholesterol 179 mg/dl (140-200); Estimated Glomerular Filt Rate 30 ml/min (>60); GFR (African American) 36 ML/MIN (>60); Globulin 2.8 g/dL (1.3-3.2); Glucose 146 mg/dl (74-100); HDL Cholesterol 25 mg/dl (40-60); Potassium 4.7 mmoL/L (3.5-5.1); Sodium 140 mmol/L (136-145); Total Protein,Serum 6.8 g/dl (6.3-8.2)
[2023-12-27 17:13] LABS: Direct LDL Cholesterol 37.84 mg/dL (100-129)
[2023-12-27 17:23] LABS: Triglycerides 908 mg/dl (30-150)
[2023-12-27 17:26] LABS: Thyroid Stimulating Hormone 1.73 uIU/mL (0.465-4.68)
[2023-12-27 17:39] LABS: Hemoglobin A1C 6.9 % (4.0-6.0)
[2023-12-27 17:56] LABS: 25-OH Vitamin D, Total 19.9 ng/mL (30-100)
== END 2023-12-27 23:59 | disposition home or self-care (01) ==
LOC: LAB.DROPOF 12-29 09:28
PROVIDERS: PCP Nurse Practitioner Family; Visit Provider Nurse Practitioner Family
DX: E55.9 Vitamin D deficiency, unspecified (principal); N18.9 Chronic kidney disease, unspecified; E78.5 Hyperlipidemia, unspecified; R53.83 Other fatigue; E13.69 Other specified diabetes mellitus with other specified complication
CPT/HCPCS: 80053; 80061; 82306; 83036; 84443; 85025

== ENCOUNTER 2024-01-29 11:46 | Outpatient (CLI) | payer MEDICARE, MEDICAID, SELFPAY ==
[2024-01-29 12:10] LABS: Basophils # 0.1 K/mm3 (0-0.2); Basophils % 0.9 % (0.1-2.0); Eosinophils # 0.4 K/mm3 (0.0-0.4); Eosinophils % 3.6 % (0.1-12.0); Hematocrit 36.4 % (42.0-52.0); Hemoglobin 13.5 g/dL (14.1-18.0); Lymphocytes % 19.1 % (10-50); Mean Corpuscular HGB Conc 37.1 g/dL (31.8-35.4); Mean Corpuscular Hemoglobin 35.4 pg (27.0-31.2); Mean Corpuscular Volume 95.6 fl (80-94); Mean Platelet Volume 8.8 fl (7.4-10.4); Monocytes # 0.5 K/mm3 (0.1-1.0); Monocytes % 5.1 % (1.7-9.3); Neutrophils # 7.3 K/mm3 (1.8-7.8); Neutrophils % 71.4 % (37.0-80.0); Platelet Count 234 K/mm3 (142-424); Red Blood Count 3.81 M/mm3 (4.60-6.20); Red Cell Distribution Width 15.3 % (11.5-17.5); White Blood Count 10.3 K/mm3 (4.8-10.8)
[2024-01-30 11:33] LABS: Estradiol <5.0 pg/mL (7.6-42.6)
[2024-01-30 13:14] LABS: PSA, Free 0.04 ng/mL; Prostate Specific Ag <0.1 ng/mL (0.0-4.0); Sex Hormone Binding Globulin 29.6 nmol/L (16.5-55.9); Testosterone,Total 25 ng/dL (264-916)
[2024-02-01 19:40] LABS: Testosterone,Free 0.6 pg/mL (6.8-21.5)
== END 2024-01-29 23:59 | disposition home or self-care (01) ==
LOC: LAB 11:49
PROVIDERS: PCP Family Medicine; Visit Provider Urology
DX: N52.9 Male erectile dysfunction, unspecified (principal); Z12.5 Encounter for screening for malignant neoplasm of prostate
CPT/HCPCS: 36415; 82670; 84146; 84153; 84154; 84270; 84402; 84403; 85025

== ENCOUNTER 2024-02-12 22:22 | Outpatient (CLI) | payer MEDICARE, MEDICAID, SELFPAY ==
[2024-02-13 08:08] LABS: Microscopic, Urine URINE MICROSCOPIC (MICROSCOPIC)
[2024-02-13 08:26] LABS: Appearance,Urine CLEAR (Clear); Bilirubin,Urine Negative (Negative); Blood, Urine Negative (Negative); Color,Urine YELLOW (Yellow); Glucose,Urine (UA) 1+ (Negative); Ketones,Urine Negative (Negative); Leukocyte Esterase,Urine Negative (Negative); Nitrate,Urine Negative (Negative); Protein,Urine 2+ (Negative); Specific Gravity, Urine 1.025 (1.005-1.030); Urobilinogen,Urine 0.2 EU/dl (0.2)
[2024-02-13 08:30] LABS: Albumin Level 4.1 g/dl (3.5-5.0); Anion Gap 14.7 mEq/L (5-15); Blood Urea Nitrogen 32 mg/dl (9-20); Calcium 9.2 mg/dl (8.4-10.2); Carbon Dioxide 18 mmol/L (22.0-30.0); Chloride 111 mmol/L (98-107); Estimated Glomerular Filt Rate 34 ml/min (>60); GFR (African American) 42 ML/MIN (>60); Glucose 178 mg/dl (74-100); Phosphorous 4.6 mg/dl (2.5-4.5); Potassium 4.7 mmoL/L (3.5-5.1); Sodium 139 mmol/L (136-145)
[2024-02-13 08:42] LABS: Intact Parathyroid Hormone 83.7 pg/mL (7.5-53.5)
[2024-02-13 08:47] LABS: 25-OH Vitamin D, Total 25.4 ng/mL (30-100)
[2024-02-13 08:52] LABS: Hemoglobin 12.4 g/dL (14.1-18.0); Mean Corpuscular HGB Conc 32.6 g/dL (31.8-35.4); Mean Corpuscular Hemoglobin 32.4 pg (27.0-31.2); Mean Corpuscular Volume 99.5 fl (80-94); Platelet Count 240 K/mm3 (142-424); Red Blood Count 3.83 M/mm3 (4.60-6.20); Red Cell Distribution Width 15.1 % (11.5-17.5); White Blood Count 10.8 K/mm3 (4.8-10.8)
[2024-02-13 08:53] LABS: Bacteria,Urine Trace /lpf; RBC,Urine Occasional #/hpf (0-3)
[2024-02-13 10:04] LABS: Creatinine,Urine Random 119 mg/dL (Not Estab.)
[2024-02-13 10:40] LABS: Microalbumin/Creatinine Ratio 1505.1
== END 2024-02-12 23:59 | disposition home or self-care (01) ==
LOC: LAB.DROPOF 22:25
PROVIDERS: PCP Nurse Practitioner; Visit Provider Nurse Practitioner
DX: N18.31 Chronic kidney disease, stage 3a (principal); E55.9 Vitamin D deficiency, unspecified
CPT/HCPCS: 80069; 81001; 82043; 82306; 82570; 83970; 84156; 85014; 85018; 85048; 85049

== ENCOUNTER 2024-03-18 11:00 | Outpatient (CLI) | payer MEDICARE, MEDICAID, SELFPAY | END 2024-03-18 23:59 | disposition home or self-care (01) | LOC: LAB.DROPOF 03-19 11:00 | PROVIDERS: PCP Family Medicine; Visit Provider Family Medicine | DX: R10.31 Right lower quadrant pain (principal); R19.7 Diarrhea, unspecified | CPT/HCPCS: 87086 ==

== ENCOUNTER 2024-09-16 13:20 | Outpatient (CLI) | payer MEDICARE, MEDICAID, SELFPAY ==
[2024-09-16 17:38] LABS: Microscopic, Urine URINE MICROSCOPIC (MICROSCOPIC)
[2024-09-16 17:41] LABS: Hematocrit 39.9 % (42.0-52.0); Hemoglobin 12.9 g/dL (14.1-18.0); Mean Corpuscular HGB Conc 32.3 g/dL (31.8-35.4); Mean Corpuscular Hemoglobin 29.4 pg (27.0-31.2); Mean Corpuscular Volume 90.9 fl (80-94); Platelet Count 261 K/mm3 (142-424); Red Blood Count 4.39 M/mm3 (4.60-6.20); White Blood Count 10.5 K/mm3 (4.8-10.8)
[2024-09-16 17:48] LABS: Albumin Level 4.2 g/dl (3.5-5.0); Chloride 105 mmol/L (98-107); Sodium 135 mmol/L (136-145)
[2024-09-16 17:49] LABS: Appearance,Urine CLEAR (Clear); Bilirubin,Urine Negative (Negative); Blood, Urine Negative (Negative); Color,Urine YELLOW (Yellow); Glucose,Urine (UA) Negative (Negative); Ketones,Urine Negative (Negative); Leukocyte Esterase,Urine Negative (Negative); Nitrate,Urine Negative (Negative); Protein,Urine 2+ (Negative); Urobilinogen,Urine 0.2 EU/dl (0.2)
[2024-09-16 17:52] LABS: Blood Urea Nitrogen 33 mg/dl (9-20); Carbon Dioxide 21 mmol/L (22.0-30.0); Estimated Glomerular Filt Rate 29 ml/min (>60); GFR (African American) 36 ML/MIN (>60); Glucose 71 mg/dl (74-100); Phosphorous 3.9 mg/dl (2.5-4.5)
[2024-09-16 18:21] LABS: Creatinine,Urine Random 79 mg/dL (Not Estab.)
[2024-09-16 18:41] LABS: Hepatitis C Ab Qual. W/ RFX NEGATIVE (Negative)
[2024-09-16 18:51] LABS: HIV Combo NEGATIVE (Negative)
[2024-09-16 20:12] LABS: Microalbumin/Creatinine Ratio 895.1
== END 2024-09-16 23:59 | disposition home or self-care (01) ==
LOC: LAB.DROPOF 09-18 10:27
PROVIDERS: Nurse Practitioner; PCP Family Medicine; Visit Provider Family Medicine
DX: N18.9 Chronic kidney disease, unspecified (principal); Z11.59 Encounter for screening for other viral diseases
CPT/HCPCS: 80069; 81001; 82043; 82570; 84156; 85027; 86803; 87389

== ENCOUNTER 2024-09-18 13:45 | Emergency (ER) | payer MEDICARE, MEDICAID, SELFPAY ==
[2024-09-18 13:46] VITALS: BP 109/79; PULSE 98; RESP 24; TEMP 36.7; O2SAT 95; BMI 46.3
--- NOTE | 2024-09-18 13:51 | ED_ITS ---
<Statement entered by Suly Blanchard DO - 09/18/24 15:58> I was consulted by the MARYAN, and we discussed the complexity of the problems being addressed. I approved the treatment and management plan for this patient's care in the emergency department, thus performing a substantive portion of the medical decision making. Suly Blanchard DO Discharge Plan Disposition Patient Disposition: Home, Self-Care Condition: Fair Prescriptions Prescriptions: New ipratropium-albuterol 0.5 mg-3 mg(2.5 mg base)/3 mL solution for nebulization 3 ml inhalation Q6H PRN (Reason: wheezing) Qty: 180 0RF levofloxacin 750 mg tablet 750 mg PO .Every other day 10 Days Qty: 5 0RF Rx Instructions: Starting on September 20, 2024 doxycycline hyclate 100 mg capsule 100 mg PO BID 10 Days Qty: 20 0RF prednisone 50 mg tablet 50 mg PO DAILY 5 Days Qty: 5 0RF tpliohondxdweiz-tvwxnlsfr-QE [Bromfed DM] 2-30-10 mg/5 mL syrup 5 ml PO Q4H PRN (Reason: sinus symptoms) Qty: 118 0RF No Action hydroxychloroquine 200 mg tablet 200 mg PO BID 30 Days Qty: 60 Patient Comments: ergocalciferol (vitamin D2) [Vitamin D2] 1,250 mcg (50,000 unit) capsule 1,250 mcg PO WEEKLY albuterol sulfate 90 mcg/actuation HFA aerosol inhaler 1 inh INHALATION QID PRN (Reason: shortness of breath or wheezing) Qty: 8.5 12RF fluticasone propionate [Flonase Allergy Relief] 50 mcg/actuation spray,suspension 1 spray intranasal DAILY Qty: 16 2RF Rx Instructions: administer into each nostril carvedilol 25 mg tablet 25 mg PO DAILY 90 Days Qty: 90 3RF furosemide 40 mg tablet 20 mg PO DAILY Qty: 90 3RF losartan 100 mg tablet 100 mg PO DAILY Qty: 90 3RF spironolactone 25 mg tablet 25 mg PO DAILY Qty: 90 3RF ipratropium-albuterol 0.5 mg-3 mg(2.5 mg base)/3 mL solution for nebulization 3 ml INHALATION QID PRN (Reason: shortness of breath or wheezing) Qty: 90 6RF atorvastatin 40 mg tablet 40 mg PO DAILY Qty: 90 3RF codeine-guaifenesin 10-100 mg/5 mL liquid 10 ml PO Q4-6H PRN (Reason: cough) Qty: 120 1RF (DME) syringe with needle [BD Luer-Carisa Syringe] 3 mL 22 x 1 1/2 syringe See Rx Instructions .ROUTE .COMPLEX Qty: 2 2RF Dose Instruction: DIRECTED WITH TESTOSTERONE DIRECTED INTRAMUSCULARLY Rx Instructions: DIRECTED WITH TESTOSTERONE DIRECTED INTRAMUSCULARLY fenofibrate 160 mg tablet 160 mg PO DAILY 90 Days Qty: 90 1RF azelastine 137 mcg (0.1 %) spray,non-aerosol 2 spray intranasal BID Qty: 30 2RF Rx Instructions: administer into each nostril Referrals Follow up/Referrals: Destin Valentin MD [Primary Care Provider] - See instructions Activity Restrictions/Add. Instructions Additional Instructions/Restrictions: I have sent medication into your pharmacy. You need to take your antibiotic of Levaquin every other day starting on September 20, 2024. The doxycycline you need to start taking every day starting tomorrow. Follow-up with your PCP within 48 hours for recheck sooner for any new or worsening signs or symptoms or return to the ER as needed. I have sent steroids and nebulizer solution to your pharmacy. You may use Lyes your nebulizer every 4 hours as needed for wheezing and shortness of breath. Clinical Impressions Clinical Impression: Community acquired pneumonia of both lungs, COPD with acute exacerbation Acute on chronic kidney failure Qualifiers: Acute renal failure type: unspecified Chronic kidney disease stage: unspecified stage Qualified Code(s): N17.9 - Acute kidney failure, unspecified Print Language Print Language: Chinese Discharge ED Provider: Gómez Shetty HPI <LILIYA Galo - Last Filed: 09/18/24 18:22> General Chief Complaint: Shortness of Breath/Dyspnea Stated Complaint: SOA, chest x-ray, fever, cold sweats Time Seen by Provider: 09/18/24 13:51 History of Present Illness HPI narrative: Patient presents from his PCPs office for shortness of air fever and cold sweats. Patient reports that he was diagnosed 2 weeks ago with an upper respiratory tract infection and started on azithromycin. Patient has had no response and has had increasing shortness of breath difficulty breathing and now has shortness of breath at rest. Patient reports subjective fever but denies chest pain chills hemoptysis hematochezia melena nausea vomiting diarrhea. Patient does have a history of COPD but is not O2 dependent. He he has been utilizing a nebulizer machine at home with albuterol 3 times a day intermittently with minimal response. He saw his PCP today and was noted to have increased work of breathing and sent to the ER for further evaluation. Related Data Home Medications ?Medication ?Instructions ?Recorded ?Confirmed ergocalciferol (vitamin D2) 1,250 1,250 mcg PO WEEKLY 09/29/22 09/18/24 mcg (50,000 unit) capsule (Vitamin D2) hydroxychloroquine 200 mg tablet 200 mg PO BID lupus 30 days #60 12/02/22 09/18/24 tabs Previous Rx's ?Medication ?Instructions ?Recorded ipratropium 0.5 mg-albuterol 3 mg 3 ml inhalation QID PRN shortness 12/16/20 (2.5 mg base)/3 mL nebulization of breath or wheezing #90 mL soln albuterol sulfate 90 mcg/actuation 1 inh inhalation QID PRN shortness 01/04/23 aerosol inhaler of breath or wheezing #8.5 grams syringe with needle 3 mL 22 x 1 #2 ea 04/10/23 1/2 (BD Luer-Carisa Syringe) fluticasone propionate 50 1 spray intranasal DAILY #16 grams 11/29/23 mcg/actuation nasal spray,suspension (Flonase Allergy Relief) atorvastatin 40 mg tablet 40 mg PO DAILY Cholesterol #90 tabs 05/02/24 carvedilol 25 mg tablet 25 mg PO DAILY 90 days #90 tabs 06/12/24 furosemide 40 mg tablet 20 mg (1/2 x 40 mg) PO DAILY Fluid 06/12/24 #90 tabs losartan 100 mg tablet 100 mg PO DAILY heart #90 tabs 06/12/24 spironolactone 25 mg tablet 25 mg PO DAILY #90 tabs 06/12/24 fenofibrate 160 mg tablet 160 mg PO DAILY Cholesterol 90 08/01/24 days #90 tabs codeine 10 mg-guaifenesin 100 mg/5 10 ml PO Q4-6H PRN cough #120 mL 09/16/24 mL oral liquid azelastine 137 mcg (0.1 %) nasal 2 spray intranasal BID #30 mL 09/17/24 spray ckyrjwesauvzrsg-hzqxdsvfveezvex-FT 5 ml PO Q4H PRN sinus symptoms 09/18/24 2 mg-30 mg-10 mg/5 mL oral syrup #118 mL (Bromfed DM) doxycycline hyclate 100 mg capsule 100 mg PO BID 10 days #20 caps 09/18/24 ipratropium 0.5 mg-albuterol 3 mg 3 ml inhalation Q6H PRN wheezing 09/18/24 (2.5 mg base)/3 mL nebulization #180 mL soln levofloxacin 750 mg tablet 750 mg PO .Every other day 10 days 09/18/24 #5 tabs prednisone 50 mg tablet 50 mg PO DAILY 5 days #5 tabs 09/18/24 Allergies Allergy/AdvReac Type Severity Reaction Status Date / Time Penicillins Allergy Intermediate I-HIVES Verified 09/18/24 11:09 dapagliflozin (From [facility]) AdvReac Vomiting Verified 09/18/24 11:09 NSAIDS (Non-Steroidal AdvReac Unknown Verified 09/18/24 11:09 Anti-Inflamma allergy reaction metformin AdvReac Mild renal Uncoded 09/18/24 11:09 insuff [facility] <LILIYA Galo - Last Filed: 09/18/24 18:22> [facility] Disclaimer: The information contained in this section may have been updated after the patient was seen, as this information can be updated by other users. Medical History Dysphonia Globus sensation Testosterone deficiency Androgen deficiency Gout Chronic renal failure, stage 3 (moderate) CKD (chronic kidney disease) HLD (hyperlipidemia) HTN (hypertension) Nonischemic cardiomyopathy Kidney disease Chest pain Edema Dyspnea CHF (congestive heart failure) BEATRICE (acute kidney injury) Obstructive sleep apnea syndrome Chronic obstructive lung disease Pituitary mass Morbid obesity Diabetes mellitus Pulmonary hypertension Hypertensive heart disease Surgical History History of dental surgery History of tonsillectomy History of carpal tunnel release H/O removal of testicle Family History Grandfather Cancer Coronary artery disease Grandmother Cancer Coronary artery disease Mother Diabetes Father Heart attack Hypertension Stroke Social History Smoking Status: Current every day smoker tobacco type: cigarettes packs per day: 1 alcohol intake: never substance use type: denies use current occupational status: other Travel in the last 8 weeks: None household members: children and other housing: house Have you lived/traveled outside [place] in past 30 days?: No Contact w/someone who lives/traveled outside US past 30 days?: No Exposure to someone with infectious disease in past 14 days?: No Do you have a fever (greater than 100.4 F or 38 C)?: Yes Have you tested positive for COVID-19: No Exposed to someone with COVID-19 in past 14 days?: No Do you have a sore throat?: No Do you have a cough?: No Do you have any weakness?: No Do you have any diarrhea?: No Are you experiencing any unusual bleeding?: No Do you have any muscle aches/pain?: No Do you have any abdominal pain?: No Are you experiencing loss of taste or smell?: No Other Medical History Have you received the Flu Vaccine for this season: Yes Have you received the Pneumonia Vaccine: No <LILIYA Galo - Last Filed: 09/18/24 18:22> ROS Obtained: Yes Systems reviewed as appropriate & no additional complaints except as documented Physical Exam <LILIYA Galo - Last Filed: 09/18/24 18:22> General General appearance: alert and in no apparent distress Neck Neck exam: Present trachea midline Respiratory Respiratory exam: Present wheezes; Absent normal lung sounds bilaterally (End expiratory wheezes in all 4 blakely but breath sounds heard to bases. Patient has significant increased work of breathing but no accessory muscle use.) or accessory muscle use Cardiovascular Cardiovascular exam: Present regular rate Neurological Exam Neurological exam: Present alert and oriented X3 HEART Score <LILIYA Galo Last Filed: 09/18/24 18:22> HEART Score HEART Score assessment performed?: Yes History (anamnesis): Slightly suspicious ECG: Normal Age: 45-65 years Risk factors: Atherosclerosis history Troponin: </= normal limit HEART Score: 3 Critical Care <LILIYA Galo Last Filed: 09/18/24 18:22> Critical Care Time Critical Care Time: Yes Attestation: On 09/18/24, the high probability of a clinically significant, sudden or life threatening deterioration of the following system(s) required my full and direct attention, intervention and personal management. The time I documented below is in addition to time spent performing reported procedures but includes the following listed in this critical care notation. Total Time Total Critical Care Time: 35 Medical Decision Making <LILIYA Galo - Last Filed: 09/18/24 18:22> Medical Records Medical records reviewed: Yes I reviewed the patient's medical records. Jorge Inquiry Pt receiving controlled substance: No Vital Signs Vital Signs: 09/18/24 13:46 09/18/24 14:07 09/18/24 14:30 Temperature 98.1 F Temperature Source Oral Pulse Rate 75 78 Pulse Rate [Left Radial] 98 H Respiratory Rate 24 13 19 Blood Pressure 112/62 116/69 Blood Pressure [Right Arm] 109/79 L Blood Pressure Mean [Right Arm] 89 02 Sat by Pulse Oximetry 95 95 95 Oxygen Delivery Method Room Air 09/18/24 15:01 09/18/24 15:31 09/18/24 16:58 Temperature 98.1 F Temperature Source Pulse Rate 93 H 92 H 88 Pulse Rate [Left Radial] Respiratory Rate 24 21 Blood Pressure 134/76 117/76 110/63 Blood Pressure [Right Arm] Blood Pressure Mean [Right Arm] 02 Sat by Pulse Oximetry 93 L 94 L Oxygen Delivery Method Room Air Lab Data Lab results reviewed: Yes I reviewed the patient's lab results. Labs: Lab Results 09/18/24 14:00: WBC 10.6, RBC 4.26 L, Hgb 12.7 L, Hct 38.1 L, MCV 89.4, MCH 29.8, MCHC 33.3, RDW 14.8, Plt Count 215, MPV 9.6, Neut % (Auto) 76.9, Lymph % (Auto) 14.5, Dundy % (Auto) 6.6, Eos % (Auto) 0.2, Baso % (Auto) 0.4, Neut # (Auto) 8.2 H, Lymph # (Auto) 1.5, Dundy # (Auto) 0.7, Eos # (Auto) 0.0, Baso # (Auto) 0.0, Sodium 134 L, Potassium 4.7, Chloride 105, Carbon Dioxide 20 L, Anion Gap 13.7, BUN 40 H, Creatinine 3.10 H D, Estimated Creat Clear 29, E stimated GFR 22 L, Est GFR ( Amer) 26 L D, Glucose 101 H, Calcium 9.0, Magnesium 1.6, Total Bilirubin 0.4, AST 34, ALT 33, Alkaline Phosphatase 40, Troponin I < 0.01, NT-Pro-B Natriuret Pep 173 H, Total Protein 7.1, Albumin 4.3, Globulin 2.8, Albumin/Globulin Ratio 1.5 09/18/24 14:04: VBG pH 7.36, VBG pCO2 31.9 L, VBG pO2 82.1 H, VBG HCO3 17.7 L, V BG Total CO2 18.6 L, VBG O2 Saturation 97.3 H, VBG Base Excess -7.8 L, VBG Lactic Acid 1.1 09/18/24 14:09: SARS-CoV-2 (PCR) Not detected, Influenza A Untype (PCR) Not detected, Influenza Type B (PCR) Not detected 09/18/24 14:00 09/18/24 14:00 Response Orders (Tests/Meds): ED MEDICATIONS Discontinued Medications Generic Name Dose Route Start Last Admin Trade Name Freq PRN Reason Stop Dose Admin Albuterol/Ipratropium 9 ml 09/18/24 14:00 09/18/24 14:21 Ipratropium/Albuterol 3 Ml Neb IH 09/18/24 14:01 9 ml ONCE ONE Administration Dexamethasone Sodium Phosphate 10 mg 09/18/24 14:00 09/18/24 14:21 Dexamethasone 4mg/Ml 5ml Mdv IV 09/18/24 14:01 10 mg ONCE ONE Administration Magnesium Sulfate 2 gm in 50 mls @ 50 mls/hr 09/18/24 14:31 09/18/24 15:14 Magnesium Sulfate 2gm/50ml Premix IV 09/18/24 15:30 50 mls/hr ONCE ONE Administration Levofloxacin/Dextrose 750 mg in 150 mls @ 100 mls/hr 09/18/24 15:27 09/18/24 15:35 Levofloxacin 750mg/150ml Premix IV 09/18/24 16:56 100 mls/hr ONCE ONE Administration Iopamidol 70 ml 09/18/24 15:13 09/18/24 15:14 Iopamidol-370 (76%);100ml Bottle IV 09/18/24 15:14 70 ml ONCE ONE Administration Sodium Chloride 50 ml 09/18/24 15:13 09/18/24 15:14 0.9 % Sodium Chloride 50 Ml Vial IV 09/18/24 15:14 50 ml ONCE ONE Administration Sodium Chloride 10 ml 09/18/24 15:13 09/18/24 15:14 Sodium Chloride 0.9% 10ml Syr (Rad Only) IV 09/18/24 15:14 10 ml ONCE ONE Administration ORDERS Category Date Time Status CT angio chest PE protocol Stat Cat Scan 09/18/24 14:00 Completed BNP [NT Pro Brain Natriuretic Pep.] Stat Lab 09/18/24 14:00 Results CBC w/Auto Diff [Complete Blood Count Auto Diff] Stat Lab 09/18/24 14:00 Completed CMP [Comprehensive Metabolic Panel] Stat Lab 09/18/24 14:00 Results Magnesium Stat Lab 09/18/24 14:00 Results Procalcitonin Stat Lab 09/18/24 14:00 Results Rapid PCR Covid and Flu A/B Stat Lab 09/18/24 14:09 Completed Trop I [Troponin I] Stat Lab 09/18/24 14:00 Results Troponin I Q3H Lab 09/18/24 20:00 Ordered Blood Culture Stat Micro 09/18/24 14:00 Received VBG [Venous Blood Gas] Stat RT 09/18/24 14:04 Completed MDM Narrative Medical Decision Narrative: In summary patient is a 44-year-old male who presents to the emergency department for evaluation of dyspnea and subjective fever for 2 weeks. Patient is initially normotensive at 109/79 pulse 98 with normal sinus rhythm on the bedside monitor breathing 24 times a minute satting at 95% on room air upon arrival, afebrile at 98.1. Physical exam is remarkable for end expiratory wheezes in all 4 blakely of breath sounds heard to bases, increased work of breathing and tachypnea without accessory muscle use, patient is diaphoretic but heart sounds are S1-S2 without murmurs gallops rubs or thrills, patient has significant central obesity and has a BMI of 46 but no abdominal tenderness no rebound or guarding no rigidity, patient has no dependent edema currently.. Differential diagnosis includes pneumonia versus ACS versus PE versus COPD versus heart failure etc. Initial workup will be conducted with hematologic labs VBG twelve-lead EKG CT PE protocol COVID and flu swabs. Initial interventions include DuoNeb Decadron supplemental O2 continuous pulse oximetry and cardiac monitoring. Initial workup reviewed by me and patient has a white count of 10.6 H&H 12.7 and 38.1 respectively with an absolute neutrophil count of 8.2 VBG shows compensated metabolic acidosis with a pH of 7.36 pCO2 of 31.9 and a VBG of 1.1, CMP significant for sodium 134 CO2 of 20 and gap of 13.7 and BUN of 40 creatinine of 3.1 up from a baseline of of approximately 2 with a GFR of 22 glucose of 101 magnesium 1.6 and undetectable troponin of 0.01 and NT proBNP of 173 and COVID and flu swabs are negative. My informal interpretation of his CT scan PE protocol does not show any evidence of thrombus but does show bilateral pneumonia. Patient started on Levaquin and doxycycline as he is already completed azithromycin. Upon repeat evaluation patient reports significant subjective improvement in his breathing easier and slower after initial intervention patient's breathing 21 times a minute satting at 94% on room air and remains afebrile. Given this I had interactive discussion with the patient regarding his symptoms his SHELTON findings and recommendation. I offered the patient admission given his metabolic acidosis acute on chronic kidney injury and significant comorbidities versus close follow-up with his PCP and via shared decision making and patient directed discharge patient feels comfortable going home with increased fingersticks for his blood sugar, close follow-up with his PCP with strict return precautions, prescriptions for Levaquin and doxycycline, Levaquin is to be dosed every other day due to his renal function after my interactive discussion with the pharmacist regarding dosing, the patient to follow-up with PCP within 48 hours for recheck of his kidney function, a prescription for steroids with increased fingersticks and DuoNeb solution sent in for his nebulizer machine. <Suly Blanchard, DO - Last Filed: 09/18/24 14:17> Vital Signs Vital Signs: 09/18/24 13:46 09/18/24 14:07 09/18/24 14:30 Temperature 98.1 F Temperature Source Oral Pulse Rate 75 78 Pulse Rate [Left Radial] 98 H Respiratory Rate 24 13 19 Blood Pressure 112/62 116/69 Blood Pressure [Right Arm] 109/79 L Blood Pressure Mean [Right Arm] 89 02 Sat by Pulse Oximetry 95 95 95 Oxygen Delivery Method Room Air 02/19/25 15:01 09/18/24 15:31 09/18/24 16:58 Temperature 98.1 F Temperature Source Pulse Rate 93 H 92 H 88 Pulse Rate [Left Radial] Respiratory Rate 24 21 Blood Pressure 134/76 117/76 110/63 Blood Pressure [Right Arm] Blood Pressure Mean [Right Arm] 02 Sat by Pulse Oximetry 93 L 94 L Oxygen Delivery Method Room Air Lab Data Labs: Lab Results 09/18/24 14:00: WBC 10.6, RBC 4.26 L, Hgb 12.7 L, Hct 38.1 L, MCV 89.4, MCH 29.8, MCHC 33.3, RDW 14.8, Plt Count 215, MPV 9.6, Neut % (Auto) 76.9, Lymph % (Auto) 14.5, Dundy % (Auto) 6.6, Eos % (Auto) 0.2, Baso % (Auto) 0.4, Neut # (Auto) 8.2 H, Lymph # (Auto) 1.5, Dundy # (Auto) 0.7, Eos # (Auto) 0.0, Baso # (Auto) 0.0, Sodium 134 L, Potassium 4.7, Chloride 105, Carbon Dioxide 20 L, Anion Gap 13.7, BUN 40 H, Creatinine 3.10 H D, Estimated Creat Clear 29, E stimated GFR 22 L, Est GFR ( Amer) 26 L D, Glucose 101 H, Calcium 9.0, Magnesium 1.6, Total Bilirubin 0.4, AST 34, ALT 33, Alkaline Phosphatase 40, Troponin I < 0.01, NT-Pro-B Natriuret Pep 173 H, Total Protein 7.1, Albumin 4.3, Globulin 2.8, Albumin/Globulin Ratio 1.5 09/18/24 14:04: VBG pH 7.36, VBG pCO2 31.9 L, VBG pO2 82.1 H, VBG HCO3 17.7 L, V BG Total CO2 18.6 L, VBG O2 Saturation 97.3 H, VBG Base Excess -7.8 L, VBG Lactic Acid 1.1 09/18/24 14:09: SARS-CoV-2 (PCR) Not detected, Influenza A Untype (PCR) Not detected, Influenza Type B (PCR) Not detected Response Orders (Tests/Meds): ED MEDICATIONS Discontinued Medications Generic Name Dose Route Start Last Admin Trade Name Sam PRN Reason Stop Dose Admin Albuterol/Ipratropium 9 ml 09/18/24 14:00 09/18/24 14:21 Ipratropium/Albuterol 3 Ml Neb IH 09/18/24 14:01 9 ml ONCE ONE Administration Dexamethasone Sodium Phosphate 10 mg 09/18/24 14:00 09/18/24 14:21 Dexamethasone 4mg/Ml 5ml Mdv IV 09/18/24 14:01 10 mg ONCE ONE Administration Magnesium Sulfate 2 gm in 50 mls @ 50 mls/hr 09/18/24 14:31 09/18/24 15:14 Magnesium Sulfate 2gm/50ml Premix IV 09/18/24 15:30 50 mls/hr ONCE ONE Administration Levofloxacin/Dextrose 750 mg in 150 mls @ 100 mls/hr 09/18/24 15:27 09/18/24 15:35 Levofloxacin 750mg/150ml Premix IV 09/18/24 16:56 100 mls/hr ONCE ONE Administration Iopamidol 70 ml 09/18/24 15:13 09/18/24 15:14 Iopamidol-370 (76%);100ml Bottle IV 09/18/24 15:14 70 ml ONCE ONE Administration Sodium Chloride 50 ml 09/18/24 15:13 09/18/24 15:14 0.9 % Sodium Chloride 50 Ml Vial IV 09/18/24 15:14 50 ml ONCE ONE Administration Sodium Chloride 10 ml 09/18/24 15:13 09/18/24 15:14 Sodium Chloride 0.9% 10ml Syr (Rad Only) IV 09/18/24 15:14 10 ml ONCE ONE Administration ORDERS Category Date Time Status CT angio chest PE protocol Stat Cat Scan 09/18/24 14:00 Completed BNP [NT Pro Brain Natriuretic Pep.] Stat Lab 09/18/24 14:00 Results CBC w/Auto Diff [Complete Blood Count Auto Diff] Stat Lab 09/18/24 14:00 Completed CMP [Comprehensive Metabolic Panel] Stat Lab 09/18/24 14:00 Results Magnesium Stat Lab 09/18/24 14:00 Results Procalcitonin Stat Lab 09/18/24 14:00 Results Rapid PCR Covid and Flu A/B Stat Lab 09/18/24 14:09 Completed Trop I [Troponin I] Stat Lab 09/18/24 14:00 Results Troponin I Q3H Lab 09/18/24 20:00 Ordered Blood Culture Stat Micro 09/18/24 14:00 Received VBG [Venous Blood Gas] Stat RT 09/18/24 14:04 Completed ECG Data Tracing #1: Attestation: I reviewed this ECG and interpreted as documented below: ECG Narrative: Normal sinus rhythm with ventricular of [address] changes concerning for STEMI. Normal axis and intervals. ECG initial impression date: 09/18/24 ECG initial impression time: 13:53
--- NOTE | 2024-09-18 13:57 | ECG_ITS ---
APPROVED REPORT Exam: Resting ECG HR:97 bpm ECG Measurements Heart Rate [address] 152 P 52 QRSd 88 QRS 48 QT 315 T 64 QTc 370 Conclusion SINUS RHYTHM NORMAL ECG UNCONFIRMED REPORT Electronically signed by : TALITA DAWSON, 09/20/2024 00:00:31
--- NOTE | 2024-09-18 14:00 | CT_ITS ---
FINAL REPORT TECHNIQUE: Axial imaging of the chest is obtained after the administration of contrast. 3-D MIP reformatted images were also obtained and reviewed per PE protocol. CLINICAL HISTORY: Shortness of breath COMPARISON: None FINDINGS: There is suboptimal opacification of the peripheral pulmonary arteries for evaluation for pulmonary embolism. No central pulmonary embolism identified. Exam is also limited for aortic dissection. The aorta is normal in caliber. The heart is borderline in size. There is no axillary lymphadenopathy. Enlarged mediastinal lymph nodes are noted. For example there is a right paratracheal lymph node measuring 3 cm and a subcarinal lymph node measuring 3.1 cm. There are enlarged bilateral hilar lymph nodes. For example a right hilar node measures 3.2 cm. Left lower lobe ground-glass and airspace opacities are consistent with pneumonia. Nodular ground-glass and airspace opacity in the posterior right upper lobe is also likely related to pneumonia. There is no pleural or pericardial effusion. Limited evaluation of the upper abdomen is without acute abnormality. No acute osseous abnormality. IMPRESSION: Limited exam for pulmonary embolism with no central pulmonary embolism identified. Bilateral [id number]-[id number]-[id number]-right pneumonia. Consider follow-up exam in 2-3 months. Reviewed, Interpreted and Dictated by Salma Davies MD Transcribed by Melly Clinton Authenticated and [facility]
--- NOTE | 2024-09-18 14:04 | PC.NURSE ---
respiratory aware of vbg order
[2024-09-18 14:07] VITALS: BP 112/62; PULSE 75; RESP 13; O2SAT 95
[2024-09-18 14:08] LABS: Basophils % 0.4 % (0.1-2.0); Eosinophils % 0.2 % (0.1-12.0); Hematocrit 38.1 % (42.0-52.0); Hemoglobin 12.7 g/dL (14.1-18.0); Lymphocytes # 1.5 K/mm3 (0.7-4.5); Lymphocytes % 14.5 % (10-50); Mean Corpuscular HGB Conc 33.3 g/dL (31.8-35.4); Mean Corpuscular Hemoglobin 29.8 pg (27.0-31.2); Mean Corpuscular Volume 89.4 fl (80-94); Mean Platelet Volume 9.6 fl (7.4-10.4); Monocytes # 0.7 K/mm3 (0.1-1.0); Monocytes % 6.6 % (1.7-9.3); Neutrophils # 8.2 K/mm3 (1.8-7.8); Neutrophils % 76.9 % (37.0-80.0); Platelet Count 215 K/mm3 (142-424); Red Blood Count 4.26 M/mm3 (4.60-6.20); Red Cell Distribution Width 14.8 % (11.5-17.5); White Blood Count 10.6 K/mm3 (4.8-10.8)
--- NOTE | 2024-09-18 14:10 | PC.NURSE ---
covid/flu swab sent to lab
[2024-09-18 14:12] LABS: Coronavirus 19, PCR Not Detected (NotDetected); Influenza A, PCR Not Detected (NotDetected); Influenza B, PCR Not Detected (NotDetected)
[2024-09-18 14:13] LABS: Lactate Venous 1.1 mmol/L (0.4-2.0); VBG Base Excess -7.8 mmol/L (-2.4-2.3); VBG HCO3 17.7 mmol/L (23-30); VBG Oxygen Saturation 97.3 % (50-70); VBG PCO2 31.9 mmol/L (35-51); VBG PH 7.36 mmol/L (7.31-7.41); VBG PO2 82.1 mmol/L (28-40); VBG Total CO2 18.6 mmol/L (23-27)
[2024-09-18 14:14] LABS: Albumin Level 4.3 g/dl (3.5-5.0); Chloride 105 mmol/L (98-107); Potassium 4.7 mmoL/L (3.5-5.1); Sodium 134 mmol/L (136-145)
[2024-09-18 14:17] LABS: Alanine Aminotransferase 33 U/L (12-78); Albumin/Globulin Ratio 1.5 (1.1-1.8); Alkaline Phosphatase 40 U/L (38-126); Anion Gap 13.7 mEq/L (5-15); Aspartate Amino Transferase 34 U/L (17-59); Bilirubin,Total 0.4 mg/dl (0.2-1.3); Blood Urea Nitrogen 40 mg/dl (9-20); Carbon Dioxide 20 mmol/L (22.0-30.0); Creatinine Clearance Estimated 29 mL/min (50-200); Estimated Glomerular Filt Rate 22 ml/min (>60); GFR (African American) 26 ML/MIN (>60); Globulin 2.8 g/dL (1.3-3.2); Glucose 101 mg/dl (74-100); Total Protein,Serum 7.1 g/dl (6.3-8.2)
[2024-09-18 14:18] LABS: Magnesium 1.6 mg/dl (1.6-2.3)
[2024-09-18] MEDS: IPRATROPIUM/ALBUTEROL 3 ML NEB 9 ML IH (14:21)
[2024-09-18] MEDS: DEXAMETHASONE 4MG/ML 5ML MDV 10 MG IV (14:21)
--- NOTE | 2024-09-18 14:21 | PC.NURSE ---
blue band placed on patients left wrist
[2024-09-18 14:28] LABS: NT Pro Brain Natriuretic Pep. 173 pg/mL (0-125)
[2024-09-18 14:30] VITALS: BP 116/69; PULSE 78; RESP 19; O2SAT 95
--- NOTE | 2024-09-18 14:48 | PC.NURSE ---
ROUNDED ON THE PT. THE PT VOICES THAT HE DOES NOT NEED ANYTHING AT THIS TIME. CALL LIGHT IS WITHIN REACH OF THE PT.
[2024-09-18 15:01] VITALS: BP 134/76; PULSE 93; RESP 24; O2SAT 93
[2024-09-18 15:13] LABS: Troponin I < 0.01 ng/ml (0.00-0.034)
[2024-09-18] MEDS: SODIUM CHLORIDE 0.9% 10ML SYR (RAD ONLY) 10 ML IV (15:14)
[2024-09-18] MEDS: MAGNESIUM SULFATE IN WATER 2 GM/50 ML PIGGYBACK IV (15:14)
[2024-09-18] MEDS: IOPAMIDOL-370 (76%);100ML BOTTLE 70 ML IV (15:14)
[2024-09-18] MEDS: 0.9 % SODIUM CHLORIDE 50 ML VIAL IV (15:14)
[2024-09-18 15:31] VITALS: BP 117/76; PULSE 92; O2SAT 94
[2024-09-18] MEDS: LEVOFLOXACIN/D5W 750 MG/150 ML 750 MG/150 ML PIGGYBACK 100 MG IV (15:35)
--- NOTE | 2024-09-18 15:42 | PC.NURSE ---
I rounded on the pt. no new complaints at this time. no needs voiced. call maguire in reach.
--- NOTE | 2024-09-18 15:56 | PC.NURSE ---
ROUNDED ON THE PT. THE PT VOICES THAT HE DOES NOT NEED ANYTHING AT THIS TIME. CALL LIGHT IS WITHIN REACH OF THE PT.
[2024-09-18 16:58] VITALS: BP 110/63; PULSE 88; RESP 21; TEMP 36.7; O2SAT 93
[2024-09-18 20:17] LABS: Procalcitonin 0.301 ng/mL (0.0-2.0)
== END 2024-09-18 17:36 | disposition home or self-care (01) ==
PROVIDERS: Physician Assistant; Emergency Provider Emergency Medicine; PCP Family Medicine
DX: J44.1 Chronic obstructive pulmonary disease with (acute) exacerbation (principal); J18.9 Pneumonia, unspecified organism; N17.9 Acute kidney failure, unspecified; R06.02 Shortness of breath; R50.9 Fever, unspecified; R61 Generalized hyperhidrosis; F17.210 Nicotine dependence, cigarettes, uncomplicated
CPT/HCPCS: 71275; 80053; 82803; 83735; 83880; 84145; 84484; 85025; 87040; 87636; 93005; 96365; 96366; 96367; 96374; 99291; J1100; J1956; J3475; J7620; Q9967

== ENCOUNTER 2024-10-08 20:05 | Outpatient (CLI) | payer MEDICARE, MEDICAID, SELFPAY ==
[2024-10-08 17:20] LABS: Basophils # 0.1 K/mm3 (0-0.2); Basophils % 0.7 % (0.1-2.0); Eosinophils # 0.2 K/mm3 (0.0-0.4); Eosinophils % 2.7 % (0.1-12.0); Hemoglobin 12.9 g/dL (14.1-18.0); Lymphocytes # 2.2 K/mm3 (0.7-4.5); Lymphocytes % 28.8 % (10-50); Mean Corpuscular HGB Conc 31.5 g/dL (31.8-35.4); Mean Corpuscular Hemoglobin 29.8 pg (27.0-31.2); Mean Corpuscular Volume 94.7 fl (80-94); Mean Platelet Volume 10.4 fl (7.4-10.4); Monocytes # 0.5 K/mm3 (0.1-1.0); Monocytes % 6.5 % (1.7-9.3); Neutrophils # 4.6 K/mm3 (1.8-7.8); Neutrophils % 60.8 % (37.0-80.0); Platelet Count 247 K/mm3 (142-424); Red Blood Count 4.33 M/mm3 (4.60-6.20); White Blood Count 7.5 K/mm3 (4.8-10.8)
[2024-10-08 18:30] LABS: Albumin Level 4.4 g/dl (3.5-5.0); Chloride 106 mmol/L (98-107); Potassium 4.5 mmoL/L (3.5-5.1); Sodium 135 mmol/L (136-145)
[2024-10-08 18:33] LABS: Alanine Aminotransferase 45 U/L (12-78); Albumin/Globulin Ratio 1.9 (1.1-1.8); Alkaline Phosphatase 54 U/L (38-126); Anion Gap 13.5 mEq/L (5-15); Aspartate Amino Transferase 36 U/L (17-59); Bilirubin,Total 0.5 mg/dl (0.2-1.3); Blood Urea Nitrogen 15 mg/dl (9-20); Calcium 9.2 mg/dl (8.4-10.2); Carbon Dioxide 20 mmol/L (22.0-30.0); Estimated Glomerular Filt Rate 34 ml/min (>60); GFR (African American) 42 ML/MIN (>60); Globulin 2.3 g/dL (1.3-3.2); Glucose 169 mg/dl (74-100); Total Protein,Serum 6.7 g/dl (6.3-8.2)
[2024-10-08 20:47] LABS: Microscopic, Urine URINE MICROSCOPIC (MICROSCOPIC)
[2024-10-08 21:58] LABS: Creatinine,Urine Random 187 mg/dL (Not Estab.)
[2024-10-08 22:59] LABS: Chloride 106 mmol/L (98-107); Sodium 134 mmol/L (136-145)
[2024-10-08 23:00] LABS: Albumin Level 4.4 g/dl (3.5-5.0); Potassium 4.5 mmoL/L (3.5-5.1)
[2024-10-08 23:02] LABS: Anion Gap 14.5 mEq/L (5-15); Blood Urea Nitrogen 15 mg/dl (9-20); Carbon Dioxide 18 mmol/L (22.0-30.0); Estimated Glomerular Filt Rate 34 ml/min (>60); GFR (African American) 42 ML/MIN (>60)
[2024-10-08 23:03] LABS: Calcium 10.1 mg/dl (8.4-10.2); Glucose 186 mg/dl (74-100)
[2024-10-09 00:56] LABS: Appearance,Urine Clear (Clear); Color,Urine Yellow (Yellow); Glucose,Urine (UA) Negative (Negative); PH,Urine 5.5 (5.0-8.5); Protein,Urine 4+ (Negative); Specific Gravity, Urine 1.025 (1.005-1.030)
[2024-10-09 00:57] LABS: Bilirubin,Urine Negative (Negative); Blood, Urine Negative (Negative); Ketones,Urine Negative (Negative); Leukocyte Esterase,Urine Negative (Negative); Nitrate,Urine Negative (Negative); Urobilinogen,Urine 0.2 EU/dl (0.2)
[2024-10-09 01:37] LABS: Bacteria,Urine 1+ /lpf; Mucus,Urine 1+ /lpf
[2024-10-10 10:14] LABS: Albumin, U 1796.1 ug/mL (Not Estab.); Albumin/Creatinine Ratio 1002 mg/g creat (0-29); Creatinine, Urine 179.2 mg/dL (Not Estab.)
== END 2024-10-08 23:59 | disposition home or self-care (01) ==
LOC: LAB 20:06
PROVIDERS: PCP Family Medicine; Visit Provider Family Medicine
DX: N17.9 Acute kidney failure, unspecified (principal); I12.9 Hypertensive chronic kidney disease with stage 1 through stage 4 chronic kidney disease, or unspecified chronic kidney disease; N18.9 Chronic kidney disease, unspecified; F17.210 Nicotine dependence, cigarettes, uncomplicated
CPT/HCPCS: 80053; 80069; 81001; 82043; 82570; 84156; 85025

== ENCOUNTER 2024-12-20 07:47 | Outpatient (CLI) | payer MEDICARE, MEDICAID, SELFPAY ==
--- NOTE | 2024-12-20 | CA_ITS ---
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: Maggie Prince RT(R) Ht: 5 ft 8 in Wt: 308lbs BSA: 2.46 BP: 124/89 mmHg Indications: SOB, CP, smoker, HTN, DM, HLD, HFpEF, hx CM, pulm HTN, CKD Echo Enhancing Agent Indication: Endocardial border delineation Agent(s) / Amount(s) Used: Definity 2 cc 2D Dimensions EF AP2 58.1 % GL Strain -19.2 % M-Mode Dimensions RVDd 2.97 cm (0.9-2.6) LA Diam 4.00 cm (1.9-4.0) LVDd 6.34 cm (3.5-5.7) LVDs 4.74 cm (3.5-5.7) IVSd 0.92 cm (0.6-1.1) PWd 0.68 cm (0.6-1.1) EF (Teich) 48.80% FS 25.20% EDV (Teich) 204.10 mL ESV (Teich) 104.40 mL LV Diastology E Decel Time 177 (160-240 msec) E/A Ratio 1.36 Mitral Valve MV A Velocity 73.0 (40-130 cm/s) E/A Ratio 1.36 Left Ventricle The left ventricle is normal size. The left ventricular systolic function is normal. The left ventricular ejection fraction is within the normal range. There is normal LV wall thickness. There is normal LV segmental wall motion. The left ventricular diastolic function is normal. No left ventricle thrombus noted on this study. LVEF is 55%. Right Ventricle The right ventricle is normal size. The right ventricular systolic function is normal. Atria The left atrium size is normal. The right atrium size is normal. There is no Doppler evidence of interatrial shunt. Aortic Valve The aortic valve opens well. There is no aortic valvular stenosis. No aortic regurgitation is present. Mitral Valve The mitral valve is normal in structure. No evidence of mitral valve stenosis. There is no mitral valve regurgitation noted. Tricuspid Valve Tricuspid valve is grossly normal in structure and function. Trace tricuspid regurgitation. There is insufficient TR jet to estimate RVSP. Pulmonic Valve The pulmonary valve is normal in structure. Mild pulmonic regurgitation. Great Vessels The aortic root is normal in size. IVC is normal in size and collapses >50% with inspiration. Pericardium There is no pericardial effusion. Other Information Study Quality: Fair Conclusion Normal biventricular systolic function. Mild PI. Electronically signed by : Jacqueline Perez MD 12/29/2024 20:51:35
--- OUTSIDE RECORDS SUMMARY | 2024-12-20 07:49 | XMS_ITS | Data Portability ---
Author Organization [facility] MADELIN Rivas [place] CLOSED Address [address] [place] [address] Care Team Providers Care Computer Art Instructor Name Role Phone LEONARDA MARCOS Primary Care Provider Assessment No assessment recorded. Plan of Treatment Reminders Order Date Submit Date Provider Last Modified By Organization Details Last Modified Time Details Appointments None recorded. Lab urinalysis panel, auto [address] [facility], [address], [place], [address], 1 13:58:32 testosteron e, free + total, serum [address] [facility], [address] [place] [address], [address], 1 13:58:32 urinalysis, dipstick, auto [address] [facility], [address], [address], [place], [address], 0 14:24:26 testosteron e, free + total, serum 2019 020 [email or web address] [facility], [address] [place] [address], [address], 0 17:09:00 Referral None recorded. Procedures None recorded. Surgeries None recorded. Imaging None recorded. Medication Orders tadalafil 5 mg tablet 2020 021 [facility], [address] [place], [address], 16:04:42 Depo-Testos terone 200 mg/mL intramuscul ar oil 2020 021 Not available 08:10:55 Patient TargetsNo targets recorded. Patient Instructions Encounter Date Encounter Id Patient Instructions Last Modified By Organization Details Last Modified Time 12/09/2019 [id number] hypogonadism: care instructions [email or web address] Not available 12/09/2019 14:24:26 08/05/2020 [id number] learning about healthy weight [email or web address] Not available 08/07/2020 20:40:30 hypogonadism: care instructions Not available 08/07/2020 20:40:30 Reason for Referral None Reported. Results Created Date Observation Date Name Description Value Unit Range Abnormal Flag Note LastModifiedBy Organization Detail LastModifiedTime 11/28/1911/27/2020 urina lysis panel , auto Unknown Analyte Clean Catch Not Available [facility] [address], [place], [address], 11/27/2020 15:44:32 11/28/19 21 11/27/2020 urina lysis panel , auto Unknown Analyte Yellow Not Available [facility] [address], [place], [address], 11/27/2020 15:44:32 11/28/19 21 11/27/2020 urina lysis panel , auto Unknown Analyte Clear Not Available [facility] [address], [place], [address], 11/27/2020 15:44:32 11/28/19 21 11/27/2020 urina lysis panel , auto Unknown Analyte 1.010 Not Available [facility] [address], [place], [address], 11/27/2020 15:44:32 11/28/19 21 11/27/2020 urina lysis panel , auto Unknown Analyte 1.003- 1.035 Not Available [facility] [address], [place], [address], 11/27/2020 15:44:32 11/28/19 21 11/27/2020 urina lysis panel , auto Unknown Analyte 6.0 Not Available [facility] [address], [place], [address], 11/27/2020 15:44:32 11/28/19 21 11/27/2020 urina lysis panel , auto Unknown Analyte 5.0-8. 0 Not Available [facility] [address], [place], [address], 11/27/2020 15:44:32 11/28/19 21 11/27/2020 urina lysis panel , auto Unknown Analyte Negati ve Not Available [facility] [address], [place], [address], 11/27/2020 15:44:32 11/28/19 21 11/27/2020 urina lysis panel , auto Unknown Analyte Negati ve Not Available [facility] [address], [place], [address], 11/27/2020 15:44:32 11/28/19 21 11/27/2020 urina lysis panel , auto Unknown Analyte Negati ve Not Available [facility] [address], [place], [address], 11/27/2020 15:44:32 11/28/19 21 11/27/2020 urina lysis panel , auto Unknown Analyte Negati ve Not Available [facility] [address], [place], [address], 11/27/2020 15:44:32 11/28/19 21 11/27/2020 urina lysis panel , auto Unknown Analyte 500 mg/dl (+++) Not Available [facility] [address], [place], [address], 11/27/2020 15:44:32 11/28/19 21 11/27/2020 urina lysis panel , auto Unknown Analyte Negati ve Not Available [facility] [address], [place], [address], 11/27/2020 15:44:32 11/28/19 21 11/27/2020 urina lysis panel , auto Unknown Analyte Normal Not Available [facility] [address], [place], [address], 11/27/2020 15:44:32 11/28/19 21 11/27/2020 urina lysis panel , auto Unknown Analyte Normal Not Available [facility] [address], [place], [address], 11/27/2020 15:44:32 11/28/19 21 11/27/2020 urina lysis panel , auto Unknown Analyte Negati ve Not Available [facility] [address], [place], [address], 11/27/2020 15:44:32 11/28/19 21 11/27/2020 urina lysis panel , auto Unknown Analyte Negati ve Not Available [facility] [address], [place], [address], 11/27/2020 15:44:32 11/28/19 21 11/27/2020 urina lysis panel , auto Unknown Analyte Normal Not Available [facility] [address], [place], [address], 11/27/2020 15:44:32 11/28/19 21 11/27/2020 urina lysis panel , auto Unknown Analyte Normal 1 mg/dl Not Available [facility] [address], [place], [address], 11/27/2020 15:44:32 11/28/19 21 11/27/2020 urina lysis panel , auto Unknown Analyte Negati ve Not Available [facility] [address], [place], [address], 11/27/2020 15:44:32 11/28/19 21 11/27/2020 urina lysis panel , auto Unknown Analyte Negati ve Not Available [facility] [address], [place], [address], 11/27/2020 15:44:32 11/28/19 21 11/27/2020 urina lysis panel , auto Unknown Analyte 50 Dylan/ul Not Available [facility] [address], [place], [address], 11/27/2020 15:44:32 11/28/19 21 11/27/2020 urina lysis panel , auto Unknown Analyte Negati ve Not Available [facility] [address], [place], [address], 11/27/2020 15:44:32 12/09/19 20 12/09/2019 urina lysis , dipst ick, auto Unknown Analyte Yellow Not Available [facility] [address], [place], [address], 12/09/2019 13:29:48 12/09/19 20 12/09/2019 urina lysis , dipst ick, auto Unknown Analyte Clear Not Available [facility] [address], [place], [address], 12/09/2019 13:29:48 12/09/19 20 12/09/2019 urina lysis , dipst ick, auto Unknown Analyte 1.010 Not Available [facility] [address], [place], [address], 12/09/2019 13:29:48 12/09/19 20 12/09/2019 urina lysis , dipst ick, auto Unknown Analyte 1.003 - 1.035 Not Available [facility] [address], [place], [address], 12/09/2019 13:29:48 12/09/19 20 12/09/2019 urina lysis , dipst ick, auto Unknown Analyte 7.0 Not Available [facility] [address], [place], [address], 12/09/2019 13:29:48 12/09/19 20 12/09/2019 urina lysis , dipst ick, auto Unknown Analyte 5.0 - 8.0 Not Available [facility] [address] [facility] [address], [place], [address], 12/09/2019 13:29:48 12/09/19 20 12/09/2019 urina lysis , dipst ick, auto Unknown Analyte Negati ve Not Available [facility] [address], [place], [address], 12/09/2019 13:29:48 12/09/19 20 12/09/2019 urina lysis , dipst ick, auto Unknown Analyte Negati ve Not Available [facility] [address], [place], [address], 12/09/2019 13:29:48 12/09/19 20 12/09/2019 urina lysis , dipst ick, auto Unknown Analyte Negati ve Not Available [facility] [address] [facility] [address], [place], [address], 12/09/2019 13:29:48 12/09/19 20 12/09/2019 urina lysis , dipst ick, auto Unknown Analyte Negati ve Not Available [facility] [address], [place], [address], 12/09/2019 13:29:48 12/09/19 20 12/09/2019 urina lysis , dipst ick, auto Unknown Analyte 500 mg/dl (+++) Not Available [facility] [address], [place], [address], 12/09/2019 13:29:48 12/09/19 20 12/09/2019 urina lysis , dipst ick, auto Unknown Analyte Negati ve - Trace Not Available [facility] [address], [place], [address], 12/09/2019 13:29:48 12/09/19 20 12/09/2019 urina lysis , dipst ick, auto Unknown Analyte Normal Not Available [facility] [address], [place], [address], 12/09/2019 13:29:48 12/09/19 20 12/09/2019 urina lysis , dipst ick, auto Unknown Analyte Normal Not Available [facility] [address], [place], [address], 12/09/2019 13:29:48 12/09/19 20 12/09/2019 urina lysis , dipst ick, auto Unknown Analyte Negati ve Not Available [facility] [address], [place], [address], 12/09/2019 13:29:48 12/09/19 20 12/09/2019 urina lysis , dipst ick, auto Unknown Analyte Negati ve Not Available [facility] [address], [place], [address], 12/09/2019 13:29:48 12/09/19 20 12/09/2019 urina lysis , dipst ick, auto Unknown Analyte Normal Not Available [facility] [address] [facility] [address], [place], [address], 12/09/2019 13:29:48 12/09/19 20 12/09/2019 urina lysis , dipst ick, auto Unknown Analyte Normal - 1mg/dl Not Available [facility] [address] [facility] [address], [place], [address], 12/09/2019 13:29:48 12/09/19 20 12/09/2019 urina lysis , dipst ick, auto Unknown Analyte Negati ve Not Available [facility] [address] [facility] [address], [place], [address], 12/09/2019 13:29:48 12/09/19 20 12/09/2019 urina lysis , dipst ick, auto Unknown Analyte Negati ve Not Available [facility] [address] [facility] [address], [place], [address], 12/09/2019 13:29:48 12/09/19 20 12/09/2019 urina lysis , dipst ick, auto Unknown Analyte 50 Dylan/ul Not Available [facility] [address] [facility] [address], [place], [address], 12/09/2019 13:29:48 12/09/19 20 12/09/2019 urina lysis , dipst ick, auto Unknown Analyte Negati ve Not Available [facility] [address] [facility] [address], [place], [address], 12/09/2019 13:29:48 12/09/19 20 12/09/2019 urina lysis , dipst ick, auto Unknown Analyte Clean Catch Not Available [facility] [address], [place], [address], 12/09/2019 13:29:48 12/09/19 20 12/09/2019 urina lysis , dipst ick, auto Unknown Analyte Automa saturnino Not Available [facility], [facility] [address], [place], [address], 12/09/2019 13:29:48 12/09/19 20 12/10/2019 testo stero ne, free + total , serum testosterone , total 267.5 NG/dL 249.0- 836.0 normal Refer ence range is for age 20 to 49 years . Not Available [facility] [address] [place] [address], [address], 12/12/2019 20:48:52 12/09/19 20 12/12/2019 testo stero ne, free + total , serum testosterone , free 54.6 pg/mL 46.0-2 24.0 normal This test was devel oped and its vicente tical perfo rmanc e cynthia cteri stics have been deter mined by [facility]. It has not been clear ed or appro turner by the FDA. This assay has been valid ated pursu ant to the CLIA regul ation s and is used for clini bubba purpo ses. TEST PERFO RMED AT: [facility] YANELY PERALTA [facility] [address] [place] [address] Jonnathan RODRIGUEZ,PHD Not Available [facility] [address] [place] [address], [address], 12/12/2019 20:48:52 11/28/19 21 11/27/2020 testo stero ne, free + total , serum testosterone , total 85 NG/dL 249-83 6 low Refer ence range is for age 20-49 years . Not Available [facility] [address] [place] [address], [address], 12/01/2020 17:50:44 11/28/19 21 12/01/2020 testo stero ne, free + total , serum testosterone , free 13.1 pg/mL 46.0-2 24.0 low This test was devel oped and its vicente tical perfo rmanc e cynthai cteri stics have been deter mined by [employer] [facility]. It has not been clear ed or appro turner by the FDA. This assay has been valid ated pursu ant to the CLIA regul ation s and is used for clini bubba purpo ses. TEST PERFO RMED AT: [employer] [facility] Y[facility]ELY [facility] [address] [place] [address] Jonnathan MERRITT Not Available [facility] [place], [address], 12/01/2020 17:50:44 Result Notes None recorded. Medical Equipment None Reported. Allergies Allergen ID Allergen Name Allergen Category Reaction Reaction Severity Criticality Documentation Date Start Date Code Code System Note Provider Name and Address Organization Details Recorded Time 866715 Product containin g penicilli n (product) medicatio n Not available Not available Not available 06/24/20162012 12778 8001 SNOMED Comme nt: Creat ed By: John garciaCr eated Date: 2012 11:14 :35 AM; Not Available [facility] 09:47:10 Medications Name Sig Start Date Stop Date Status Note LastModified by Organization Details LastModified Time furosemide 40 mg tablet active Not Available Not Available Not Available atorvastati n 40 mg tablet active Not Available Not Available Not Available metformin 500 mg tablet Two times a day 11/27 completed Frequ ency: bid;A lt Frequ ency: with food; Medic ation Descr iptio n: metfo rmin; Dosag e:1; Route :oral ; refil ls:0 Not Available Not Available Not Available carvedilol 25 mg tablet active Not Available Not Available Not Available prednisone 10 mg tablet 11/27 completed Not Available Not Available Not Available carvedilol 12.5 mg tablet 11/27 completed Not Available Not Available Not Available tizanidine 2 mg tablet TAKE 1-2 TABLETS BY BY MOUTH AT BEDTIME NEEDED active Not Available Not Available No t Available clindamycin HCl 300 mg capsule 11/27 completed Not Available Not Available Not Available azithromyci n 250 mg tablet 11/27 completed Not Available Not Available Not Available ibuprofen 800 mg tablet Three times a day active Frequ ency: tid;M edica tion Descr iptio n: ibupr ofen; Dosag e:1; Route :oral ; refil ls:0 Not Available Not Available Not Available ofloxacin 0.3 % eye drops 11/27 completed Not Available Not Available Not Available lisinopril 20 mg tablet 11/27 completed Not Available Not Available Not Available glipizide 10 mg tablet TAKE 1 TABLET BY MOUTH TWICE A DAY active Not Available Not Available No t Available Alcohol Pads active Not Available Not Available Not Available cromolyn 4 % eye drops 11/27 completed Not Available Not Available Not Available spironolact one 25 mg tablet TAKE 1 TABLET BY MOUTH ONCE DAILY active Not Available Not Available No t Available hydrocodone 7.5 mg-acetamin ophen 325 mg tablet TAKE 1 TABLET BY MOUTH EVERY 6 HOURS NEEDED active Not Available Not Available No t Available cephalexin 500 mg capsule 11/27 completed Not Available Not Available Not Available cabergoline 0.5 mg tablet TAKE 1/2 TABLET 2 TIMES WEEKLY active Not Available Not Available No t Available losartan 25 mg tablet active Not Available Not Available No t Available ciprofloxac in 500 mg tablet Every twelve hours 11/27 completed Frequ ency: q12h; Medic ation Descr iptio n: cipro floxa peter; Route :oral ; refil ls:0 Not Available Not Available Not Available gabapentin 300 mg capsule TAKE 2 CAPSULES BY MOUTH AT BEDTIME FOR PAIN active Not Available Not Available No t Available furosemide 20 mg tablet 11/27 completed Not Available Not Available Not Available hydroxychlo roquine 200 mg tablet TAKE 1 TABLET BY MOUTH ONCE DAILY active Not Available Not Available No t Available testosteron e cypionate 200 mg/mL intramuscul ar oil INJECT 1.5 ML I.M. EVERY OTHER WEEK 2022 active Not Available Not Available Not Avai lable ibuprofen 600 mg tablet active Not Available Not Available Not Available BD Luer-Carisa Syringe 3 mL 18 x 1 1/2 DIRECTED active Not Available Not Available No t Available cefdinir 300 mg capsule 11/27 completed Not Available Not Available Not Available fluticasone propionate 50 mcg/actuati on nasal spray,suspe nsion active Not Available Not Available Not Available metformin ER 500 mg tablet,exte nded release 24 hr 11/27 completed Not Available Not Available Not Available BD Luer-Carisa Syringe 3 mL 22 x 1 1/2 DIRECTED active Not Available Not Available No t Available Ventolin HFA 90 mcg/actuati on aerosol inhaler active Not Available Not Available Not Available tadalafil 5 mg tablet Take 1 tablet every day by oral route. 2020 active Not Available Not Available Not Avai lable duloxetine 60 mg capsule,del ayed release TAKE 2 CAPSULES BY MOUTH EVERY DAY active Not Available Not Available No t Available omega-3 acid ethyl esters 1 gram capsule active Not Available Not Available Not Available fenofibrate 160 mg tablet active Not Available Not Available Not Available aspirin active Not Available Not Avail able Not Available Chantix 1 mg tablet Two times a day 11/27 completed Frequ ency: bid;M edica tion Descr iptio n: varen iclin e; Dosag e:as direc saturnino; Route :oral ; refil ls:1 Not Available Not Available Not Available fenofibrate nanocrystal lized 48 mg tablet Daily 11/27 completed Frequ ency: daily ;Medi catio n Descr iptio n: fenof ibrat e; Route :oral ; refil ls:0 Not Available Not Available Not Available Invokana 100 mg tablet active Not Available Not Available Not Available Vitals Date Recorded Body height Body mass index (BMI) Body weight Provider Name and Address Organization Details Last Updated DateTime 12/09/2019 167.64 cm 51.5 kg/m2 560035.97 g Corina Banda [facility] 12/09/2019 13:23:58 Date Recorded Body height Body mass index (BMI) Body weight Provider Name and Address Organization Details Last Updated DateTime 08/05/2020 167.64 cm 51.5 kg/m2 494549.97 chasidy Banda [facility] 08/05/2020 16:11:05 Date Recorded Body height Body mass index (BMI) Body weight Provider Name and Address Organization Details Last Updated DateTime 11/27/2020 167.64 cm 51.5 kg/m2 720225.97 chasidy Smith [facility] 11/27/2020 15:42:21 Social History Question Answer Notes LastModified by Organizat ion Details LastModified Time Tobacco Smoking Status Current Every Day Smoker Corina Banda [facility] 12/09/2019 13:25:24 How Much Tobacco Do You Chew? None [email or web address] Information not available 12/09/2019 Marital Status [email or web address] Informatio n not available 12/09/2019 Sex: Unknown Functional Status Question Answer Note LastModified by Organization D etails LastModified Time What is your level of alcohol consumption? None [email or web address] Information not available 12/09/2019 Mental Status None recorded. Family History Nothing Reported. Medical History Condition Response Diabetes Y Allergies/Hayfever Y Arthritis Y Chronic Obstructive Pulmonary Disease Y Kidney Stones Y Sleep Apnea Y High Cholesterol Y Anesthesia Complications Y Liver Disease Y Hypertension Y Asthma Y Depression Y Kidney Disease Y Past Encounters Encounter ID Performer Location Encounter Start Date Encounter Closed Date Diagnosis/Indication Diagnosis SNOMED-CT Code Diagnosis ICD10 Code Diagnosis Note [id number] MD AARON SAXENA [facility] [address] [place] [id number] 12/09/2019 13:05:29 12/09/2019 14:23:16 Male hypogonadism 77855512 E29.1 follow up 6 months he was given refills medication [id number] MD AARON [facility]XENA [facility] [address] [address] 08/05/2020 14:36:05 08/05/2020 16:51:21 Male hypogonadism 69142904 E29.1 follow up 6 months he was given refills medication [id number] MD AARON SAXENA [facility] [address] [place] [address] 11/27/2020 15:22:25 11/27/2020 16:12:45 Testicular hypofunction 574676192 E29.1 Male hypogonadism 754019 06 E29.1 follow up 6 months he was given refills medication Primary er ectile dysfunction 047359909 N52.9 Health Concerns Section Related Observation LastModified by Organization Detai ls LastModified Time None Recorded Concern Status LastModified by Organization Details LastModified Time None Recorded Advance Directives Directive None Recorded Payers Insurance Date Sequence Insurance Name Policy Number Policy Maradiaga Covered Member ID Maradiaga Member ID Guarantor Name 09/29/2021 2 MEDICAID-[facility] CHOICES - FFS/TRADITIO NAL Matt Sundar [id number] Matt Kwok 09/29/2021 1 MEDICARE-[place] (MEDICARE) Matt Rivka Kwok [id number] Matt Kwok 09/29/2021 [facility] [employer] Kwok [id number] Matt Sundar Notes Date Note Type Note Provider Name and Address Organization Details Recorded Time 12/09/2019 text/html patient is here for routine follow-up regarding hypogonadism. He typically is followed at [place]. For several years he has been on Depo testosterone 300 mg every other week. He has blood drawn lastly but unfortunately they did not call a testosterone level has ordered. We will obtain a serum sample today for total and free testosterone he feels well otherwise. He is followed for a pituitary pathology. He is also followed by nephrology at [place]. ERNESTO LYNN MD [facility] [place], [address], [facility] 12/09/2019 16:46:47 08/05/2020 text/html Patient is here in follow-up of hypogonadism. He also has a pituitary tumor which is monitored by endocrinology. He's been on Depo testosterone for several years. He receives 1.5 mL (300mg) every other week. He continues to feel well. His levels on therapy earlier this year were acceptable. He requests a refill of therapy. [place], [address], [facility] 08/07/2020 20:41:12 11/27/2020 text/html patient is a follow-up of hypogonadism. He receives 300 mg every other week self-administered. His last levels were acceptable but that was a little over year ago. His last injection was 1 week ago. We will obtain a total testosterone level. He states that his energy level is okay but he is recently a very extreme difficulty achieving and maintaining adequate erection. We discussed options including sildenafil and tadalafil. We will first try the daily dose tadalafil. ERNESTO LYNN MD [address] [place], [address], [facility] 11/27/2020 16:03:13
[2024-12-20] MEDS: DEFINITY US ECHO CONTRAST 2ML INJ 2 MG IV (08:32)
== END 2024-12-20 23:59 | disposition home or self-care (01) ==
LOC: RT 07:48
PROVIDERS: PCP Family Medicine; Visit Provider Internal Medicine
DX: I37.1 Nonrheumatic pulmonary valve insufficiency (principal); I13.0 Hypertensive heart and chronic kidney disease with heart failure and stage 1 through stage 4 chronic kidney disease, or unspecified chronic kidney disease; I50.30 Unspecified diastolic (congestive) heart failure; N18.9 Chronic kidney disease, unspecified; F17.200 Nicotine dependence, unspecified, uncomplicated; E11.9 Type 2 diabetes mellitus without complications; E78.5 Hyperlipidemia, unspecified; I27.20 Pulmonary hypertension, unspecified
CPT/HCPCS: 93306; Q9957

== ENCOUNTER 2025-01-30 12:55 | Outpatient (CLI) | payer MEDICARE, MEDICAID, SELFPAY ==
--- OUTSIDE RECORDS SUMMARY | 2025-01-30 13:01 | XMS_ITS | Clinical Summary ---
Author Organization Healthcare Address [address] [place] [address] Care Team Providers Care Clinical Education Coordinator Name Role Phone Destin Valentin MD Primary Care Provider Barbie vailable Allergies Active Allergy Reactions Criticality Noted Date Comments Nsaids Other - please docum ent in the comment field Low 06/02/2022 Penicillins Hives,Unknown - Selina ent states they do not know rxn details Medium 10/16/2012 Medications Aspirin 81 MG capsule aspirin Active Syringe/Needle, Disp, (B-D 3CC LUER-CARISA SYR [id number]) 18G X 1-1/2 3 ML misc BD Luer-Carisa Syringe 3 mL 18 x 1 1/2 DIRECTED Active fenofibrate (Triglide) 160 MG tablet 020 Active albuterol 108 (90 Base) MCG/ACT inhaler Ventolin HFA 90 mcg/actuation aerosol inhaler 016 Active hydroxychloroquin e (Plaquenil) 200 MG tablet hydroxychloroquine 200 mg tablet 016 Active tadalafil (Cialis) 5 MG tablet 1 (one) time each day. Active testosterone cypionate (Depo-Testosteron e) 200 MG/ML injection 1.5 mL. 015 Active atorvastatin (Lipitor) 40 MG tablet 021 Active glipiZIDE (Glucotrol) 10 MG tablet glipizide 10 mg tablet TAKE 1 TABLET BY MOUTH TWICE A DAY Active canagliflozin (Invokana) 100 MG Take 1 tablet (100 mg total) by mouth 1 (one) time each day before breakfast. 30 tablet 11 022 Active carvedilol (Coreg) 25 MG tablet Take one tablet twice daily 60 tablet 11 022 Active losartan (Cozaar) 100 MG tablet Take 1 tablet (100 mg total) by mouth 1 (one) time each day. 30 tablet 022 Active spironolactone (Aldactone) 25 MG tablet Take one tablet daily 30 tablet 11 022 Active cabergoline (Dostinex) 0.5 MG tabletIndications :Prolactinoma (CMS/HCC) Take 0.5 tablets (0.25 mg total) by mouth 2 (two) times a week. 25 tablet 023 Active furosemide (Lasix) 40 MG tablet Take 1 tablet (40 mg total) by mouth 2 (two) times a day. 180 tablet 3 023 Active Ozempic, 0.25 or 0.5 MG/DOSE, 2 MG/3ML solution pen-injector INJECT 0.25 MG 1 TIME EACH WEEK 024 Active ergocalciferol 1.25 MG (97245 UT) capsuleIndication s:Renal osteodystrophy Take 1 capsule (50,000 Units) by mouth 1 (one) time per week. Weekly for 4 weeks then once a month 16 capsule 024 Active Active Problems Problem Noted Date Diagnosed Date CKD (chronic kidney disease), stage III 05/01/20 19 Osteoporosis 04/06/2017 RAHEL (obstructive sleep apnea) 06/06/2016 Diabetes mellitus type 2 without retinopathy Renal osteodystrophy 01/15/2015 GERD (gastroesophageal reflux disease) 5 Proteinuria 12/13/2014 Prolactinoma 12/04/2014 Hypogonadism, male 11/03/2014 Pituitary mass 11/03/2014 Immunizations Immunization Administration Dates Next Due Influenza, injectable, quadrivalent, preservativ e free 04/26/2016 Influenza, seasonal, injectable 07/31/2016,04/26 [employer] COVID-19 Vaccine (Purple Cap) 12 + 04/15/2021,03/04/2021 Pneumococcal Conjugate PCV 13 07/31/2016, 015 Pneumococcal, Unspecified 07/19/2018 Tdap 02/16/2020 Family History Medical History Relation Name Comments Hyperlipidemia Father Diabetes Mother Hyperlipidemia Mother Hypertension Mother Colon cancer Mother's Brother 1 Heart attack Mother's Brother 2 Diabetes Mother's Sister 1 Other cancer Mother's Sister 2 Colon cancer Other 1 Arthritis Other 2 Stroke Other 3 Diabetes Other 4 Hyperlipidemia Other 5 Obesity Sister Relation Name Status Comments Father Mother Mother's Brother 1 Mother's Brother 2 Mother's Sister 1 Mother's Sister 2 Other 1 Other 2 Other 3 Other 4 Other 5 Sister Social History Tobacco Use Types Packs/Day Years Used Date Smoking Tobacco: Every Day Cigarettes Passive Smoke Exposure: Current Smokeless Tobacco: Never Tobacco Cessation:Ready to Q uit: Not Asked; Counseling Given: Not Answered Alcohol Use Standard Drinks/Week Comments No 0 (1 standard drink = 0.6 oz pur e alcohol) Sex and Gender Information Value Date Recorded Sex Assigned at Not on file Legal Sex Male 6:32 PM EDT Gender Identity Not on file Sexual Orientation Not on file Last Filed Vital Signs Vital Sign Reading Time Taken Comments Blood Pressure 135/84 10/11/2024 9:06 AM EDT Pulse 64 10/11/2024 9:06 AM EDT Temperature 36.6 C (97.8 F) 10/11/2024 9:06 AM EDT Respiratory Rate 18 10/11/2024 9:06 AM EDT Oxygen Saturation 97% 10/11/2024 9:06 AM EDT Inhaled Oxygen Concentration - - Weight 136 kg (299 lb) 10/11/2024 9:06 AM EDT Height 172.7 cm (5' 8 ) 10/11/2024 9:06 AM EDT Body Mass Index 45.46 10/11/2024 9:06 AM EDT Plan of Treatment Upcoming Encounters Date Type Department Care Team (Late st Contact Info) Description 02/21/2025 8:20 AM EDT Office Visit [facility] [address] [place] [address] Milagros Warren, RECOVERY COLLECTOR [address] [address] Health Maintenance Due Date Last Done Comments [facility]-Bone Density Scan 1979 [facility]-Depression Screening 1979 [facility]-HIV Screening 1979 [facility]-Medicare Annual Wellness (AWV) 1979 [facility]-/Child/Adol SDOH Screenings 1979 Diabetes: Dental Exam 1989 HPV Vaccines (1 - Male 3-dose series) 1994 [facility]- SDOH Screenings 1997 [facility]-Adult SDOH Screenings 1997 [facility]-Hepatitis B Vaccines (1 of 3 - 19+ 3-dose series) 1998 [facility]-Diabetes: Hemoglobin A1C 07/20/2015 01/20/2015 [facility]-Pneumococcal Vaccine: Pediatrics (0 to 5 Years) and At-Risk Patients (6 to 49 Years) (2 of 2 - PPSV23) 09/25/2016 07/19/2018, 07/31/2016, 12/18/2014 [id number] Vaccine (3 - season) 2024 04/15/2021, 03/04/2021 CT Colonography 2024 Colonoscopy 2024 FIT-DNA 2024 FIT 2024 FOBT 2024 Sigmoidoscopy 2024 [facility]-Colorectal Cancer Screening 2024 [facility]-Influenza Vaccine (#1) 03/31/202507/31, 04/26/2016, 04/26/2016 [facility]-Zoster Vaccines (1 of 2) 2029 [facility]-DTaP,Tdap,and Td Vaccines (2 - Td or Tdap) 02/15/2030 02/16/2020 [facility]-Hepatitis C Screening Completed 01/20/2019 [facility]-Obesity Intervention Completed 025, 03/08/2024, 01/02/2023, Additional history exists [facility]-HIB Vaccines Aged Out No longer e ligible based on patient's age to complete this topic [facility]-Hepatitis A Vaccines Aged Out No longer eligible based on patient's age to complete this topic [facility]-IPV Vaccines Aged Out No longer e ligible based on patient's age to complete this topic [facility]-Rotavirus Vaccines Aged Out No lo nger eligible based on patient's age to complete this topic Procedures Procedure Name Priority Date/Time Associated Diagnosis Comments HEPATITIS C ANTIBODY - ED W/REFLEX TO HCV QUANT PCR Routine 01/20/2019 9:40 PM EDT HEMOGLOBIN A1C Routine 01/20/2015 5:13 PM EDT from Last 3 Months or Most Recently Relevant to Health Maintenance Results * [place] Hepatitis C Antibody (01/20/2019 9:40 PM EDT) [place] Hepatitis C Ab NEGATIVE Reference Range: Negative [facility] 01/20/2019 9:40 PM EDT 01/20/2019 9:45 PM EDT Dio Campa MD LAB BLOOD ORDERABLES Final Re sult [facility] * (ABNORMAL) Hemoglobin A1c (01/20/2015 5:13 PM EDT) Hemoglobin A1c 6.5(H) 4.7 - 6.0 % [facility] Comment: (NOTE) Glycohemoglobin, 0 years and up: 4.7 - 6.0% . HbA1c assay performed by an ion-exchange chromatography method that is certified traceable to the DCCT. 01/20/2015 5:13 PM EDT 01/20/2015 5:55 PM EDT Kaylie Freeman MD LAB BLOOD ORDERABLES Geraldine l Result [facility] from Last 3 Months or Most Recently Relevant to Health Maintenance Insurance [facility] MEDICARE Care Teams Clinical Education Coordinator Relationship Specialty Start Date End Date Destin Valentin MD PCP - General Family Medicine 09/05/22 marcy palmer Endocrinology 07/04/22
--- OUTSIDE RECORDS SUMMARY | 2025-01-30 13:01 | XMS_ITS | Referral Summary ---
Author Organization [employer] ([place], [place], [place], [place]) Address [address] [place] [address] Care Team Providers Care Associate Professor Of Archaeology Name Role Phone Unavailable Primary Care Provider Unavailabl e Social History Tobacco Use Types Packs/Day Years Used Date Smoking Tobacco: Never Assessed Sex and Gender Information Value Date Recorded Sex Assigned at Not on file Legal Sex Male 4:50 PM CDT Gender Identity Not on file Sexual Orientation Not on file Plan of Treatment Not on file
--- OUTSIDE RECORDS SUMMARY | 2025-01-30 13:01 | XMS_ITS | Encounter Summary ---
Author Organization [employer] ([place], [place], [place], [place]) Address [address] [place] [address] Care Team Providers Care Assembly Lead Person Name Role Phone Unavailable Primary Care Provider Unavailabl e Encounter Details Date Type Department Care Team (Late st Contact Info) Description 12/13/2018 Transcribed Document [facility] [place] [facility] [place] [address] ProviderKaylie MD [address] [place] [id number] Social History Tobacco Use Types Packs/Day Years Used Date Smoking Tobacco: Never Assessed Sex and Gender Information Value Date Recorded Sex Assigned at Not on file Legal Sex Male 4:50 PM CDT Gender Identity Not on file Sexual Orientation Not on file documented as of this encounter Miscellaneous Notes * Cerner Conversion Note - Kaylie ProviderMD - 12/13/2018 12:05 PM CDT [place] [phone] LEORAMATT AMARO :1980 Visit Time:12/13/2018 Your Visit Summary Your Care Team Admitting Physician - CE SÁNCHEZ MD-SUR Attending Physician - CE SÁNCHEZ MD-SUR Primary Care Physician - LEONARDA MARCOS (REF)YASH Referring Physician - CE SÁNCHEZ MD-SUR Your Diagnosis Venous insufficiency (chronic) (peripheral), Venous insufficiency (chronic) (peripheral) Discharge Vitals Temperature 36.3 ??C Heart Rate (Monitored) 69 Respiratory Rate 16 Blood Pressure 107/61 What to do next Instructions From Your Care Team Diet after Discharge: Resume usual diet as tolerated, _, _ Activity after Discharge: _, Rest and relax today, No strenuous activity Lifting Restrictions: No heavy lifting over 10 pounds Driving after Discharge: Do not drive until 24 hours after no longer taking pain medications.Do not sign legal docmuments for 24 hours. Showering/Bathing: _, No tub bathing, soaking or swimming. Do not submerge site into water until completely healed. Notify Provider of: New/worsening symptoms Wound/Incision Care after Discharge: Keep operative site/wound site clean and dry, Change dressing with dry dressing daily and as needed Discharge Follow Up Instructions: follow-up in 2 weeks.Please schedule Ankle-Brachial Index(GREGG) with followuup appointment. Activity: Discharge Activity: No heavy lifting over 10 lbs, Avoid Strenuous Activity Until: for 1 week Follow-Up Appointments Follow Up with CE SÁNCHEZ MD-CITLALY When Within 2 to 3 days Comments January 01 at 2pm Where: [address] [phone] Medications What How Much When Instructions Next Dose aspirin (aspirin 81 mg oral tablet) 1 Tablet(s) Oral Every Day 12/14/2018 carvedilol (carvedilol 12.5 mg oral tablet) 1 Tablet(s) Oral Two Times A Day 12/14/2018 fenofibrate (fenofibrate 160 mg oral tablet) 1 Tablet(s) Oral Every Day 12/14/2018 fluticasone nasal (fluticasone 50 mcg/ inh nasal spray) 1 [place](s) Nasal Two Times A Day 12/14/2018 gabapentin (gabapentin 300 mg oral capsule) 1 Capsule(s) Oral Two Times A Day 12/14/2018 hydroxychloroquine (hydroxychloroquine 200 mg oral tablet) 1 Tablet(s) Oral Every Day 12/14/2018 lisinopril (lisinopril 40 mg oral tablet) 1 Tablet(s) Oral Every Day 12/14/2018 losartan (losartan 25 mg oral tablet) 1 Tablet(s) Oral Every Day 12/14/2018 metFORMIN (metFORMIN 500 mg oral tablet, extended release) 1 Tablet(s) Oral Every Day Do not resume until labs done and speaks with Dr. Sánchez office testosterone (Testosterone Cypionate 200 mg/ mL intramuscular solution) 1 Milliliter(s) IntraMuscular Every Two Weeks Next week tiZANidine (tiZANidine 2 mg oral tablet) 1 Tablet(s) Oral Every 8 Hours as needed for as needed for muscle spasm 12/14/2018 Take your medications faithfully. Do NOT skip medication. Do NOT stop taking medications without the direction of a physician. Carry a list of your medications with you at all times, and take this medication list with you to your first follow up visit. Report any side effects. Avoid herbal remedies unless discussed with your physician. As part of your treatment plan, your physician may have prescribed a limited course of a controlled substance. This medication may be given to help people with moderate or severe pain or for other medical conditions, but there are risks involved with treatment. Common side effects may include nausea, constipation, drowsiness, sweating, itching, dry mouth, and rash. More serious side effects may include cognitive and motor impairment, like problems with thinking, concentrating, alertness, and movement (e.g. slowed reflexes), and driving and operating heavy machinery can be dangerous. It is important for you to talk to your physician if you have these side effects or questions. These controlled substances can produce physical dependence and be habit-forming if taken for an extended period of time, which means that the body has gotten used to them and may experience withdrawal symptoms if they are abruptly stopped. Withdrawal symptoms can include runny nose, sweating, goose bumps, diarrhea, abdominal cramping, rapid heartbeat, difficulty sleeping, and nervousness. Please dispose of unused and medications per your retail pharmacy guidance. Allergies penicillin Immunizations This Visit No Immunizations Found Education Materials Femoral Site Care Refer to this sheet in the next few weeks. These instructions provide you with information about caring for yourself after your procedure. Your health care provider may also give you more specific instructions. Your treatment has been planned according to current medical practices, but problems sometimes occur. Call your health care provider if you have any problems or questions after your procedure. What can I expect after the procedure? After your procedure, it is typical to have the following: ??? Bruising at the site that usually fades within 1???2 weeks. ??? Blood collecting in the tissue (hematoma) that may be painful to the touch. It should usually decrease in size and tenderness within 1???2 weeks. Follow these instructions at home: ??? Take medicines only as directed by your health care provider. ??? You may shower 24???48 hours after the procedure or as directed by your health care provider. Remove the bandage (dressing) and gently wash the site with plain soap and water. Pat the area dry with a clean towel. Do not rub the site, because this may cause bleeding. ??? Do not take baths, swim, or use a hot tub until your health care provider approves. ??? Check your insertion site every day for redness, swelling, or drainage. ??? Do not apply powder or lotion to the site. ??? Limit use of stairs to twice a day for the first 2???3 days or as directed by your health care provider. ??? Do not squat for the first 2???3 days or as directed by your health care provider. ??? Do not lift over 10 lb (4.5 kg) for 5 days after your procedure or as directed by your health care provider. ??? Ask your health care provider when it is okay to: ? Return to work or school. ? Resume usual physical activities or sports. ? Resume sexual activity. ??? Do not drive home if you are discharged the same day as the procedure. Have someone else drive you. ??? You may drive 24 hours after the procedure unless otherwise instructed by your health care provider. ??? Do not operate machinery or power tools for 24 hours after the procedure or as directed by your health care provider. ??? If your procedure was done as an outpatient procedure, which means that you went home the same day as your procedure, a responsible adult should be with you for the first 24 hours after you arrive home. ??? Keep all follow-up visits as directed by your health care provider. This is important. Contact a health care provider if: ??? You have a fever. ??? You have chills. ??? You have increased bleeding from the site. Hold pressure on the site. Get help right away if: ??? You have unusual pain at the site. ??? You have redness, warmth, or swelling at the site. ??? You have drainage (other than a small amount of blood on the dressing) from the site. ??? The site is bleeding, and the bleeding does not stop after 30 minutes of holding steady pressure on the site. ??? Your leg or foot becomes pale, cool, tingly, or numb. This information is not intended to replace advice given to you by your health care provider. Make sure you discuss any questions you have with your health care provider. Document Released: 03/20/2015 Document Revised: 12/22/2016 Document Reviewed: 02/03/2015 [employer] Interactive Patient Education ?? 2019 [employer] Steps to Quit Smoking Smoking tobacco can be bad for your health. It can also affect almost every organ in your body. Smoking puts you and people around you at risk for many serious long-lasting (chronic) diseases. Quitting smoking is hard, but it is one of the best things that you can do for your health. It is never too late to quit. What are the benefits of quitting smoking? When you quit smoking, you lower your risk for getting serious diseases and conditions. They can include: ??? Lung cancer or lung disease. ??? Heart disease. ??? Stroke. ??? Heart attack. ??? Not being able to have children (infertility). ??? Weak bones (osteoporosis) and broken bones (fractures). If you have coughing, wheezing, and shortness of breath, those symptoms may get better when you quit. You may also get sick less often. If you are , quitting smoking can help to lower your chances of having a baby of low weight. What can I do to help me quit smoking? Talk with your doctor about what can help you quit smoking. Some things you can do (strategies) include: ??? Quitting smoking totally, instead of slowly cutting back how much you smoke over a period of time. ??? Going to in-person counseling. You are more likely to quit if you go to many counseling sessions. ??? Using resources and support systems, such as: ? Online chats with a counselor. ? Phone quitlines. ? Printed self-help materials. ? Support groups or group counseling. ? Text messaging programs. ? Mobile phone apps or applications. ??? Taking medicines. Some of these medicines may have nicotine in them. If you are or , do not take any medicines to quit smoking unless your doctor says it is okay. Talk with your doctor about counseling or other things that can help you. Talk with your doctor about using more than one strategy at the same time, such as taking medicines while you are also going to in-person counseling. This can help make quitting easier. What things can I do to make it easier to quit? Quitting smoking might feel very hard at first, but there is a lot that you can do to make it easier. Take these steps: ??? Talk to your family and friends. Ask them to support and encourage you. ??? Call phone quitlines, reach out to support groups, or work with a counselor. ??? Ask people who smoke to not smoke around you. ??? Avoid places that make you want (trigger) to smoke, such as: ? Bars. ? Parties. ? Smoke-break areas at work. ??? Spend time with people who do not smoke. ??? Lower the stress in your life. Stress can make you want to smoke. Try these things to help your stress: ? Getting regular exercise. ? Deep-breathing exercises. ? Yoga. ? Meditating. ? Doing a body scan. To do this, close your eyes, focus on one area of your body at a time from head to toe, and notice which parts of your body are tense. Try to relax the muscles in those areas. ??? Download or buy apps on your mobile phone or tablet that can help you stick to your quit plan. There are many free apps, such as QuitGuide from the CDC (Centers for Disease Control and Prevention). You can find more support from smokefree.gov and other websites. This information is not intended to replace advice given to you by your health care provider. Make sure you discuss any questions you have with your health care provider. Document Released: 05/13/2010 Document Revised: 03/14/2017 Document Reviewed: 12/01/2015 [employer] Patient Education ?? 2019 [employer] Moderate Conscious Sedation, Adult, Care After These instructions provide you with information about caring for yourself after your procedure. Your health care provider may also give you more specific instructions. Your treatment has been planned according to current medical practices, but problems sometimes occur. Call your health care provider if you have any problems or questions after your procedure. What can I expect after the procedure? After your procedure, it is common: ??? To feel sleepy for several hours. ??? To feel clumsy and have poor balance for several hours. ??? To have poor judgment for several hours. ??? To vomit if you eat too soon. Follow these instructions at home: For at least 24 hours after the procedure: ??? Do not: ? Participate in activities where you could fall or become injured. ? Drive. ? Use heavy machinery. ? Drink alcohol. ? Take sleeping pills or medicines that cause drowsiness. ? Make important decisions or sign legal documents. ? Take care of children on your own. ??? Rest. Eating and drinking ??? Follow the diet recommended by your health care provider. ??? If you vomit: ? Drink water, juice, or soup when you can drink without vomiting. ? Make sure you have little or no nausea before eating solid foods. General instructions ??? Have a responsible adult stay with you until you are awake and alert. ??? Take tmnt-hje-haezmai and prescription medicines only as told by your health care provider. ??? If you smoke, do not smoke without supervision. ??? Keep all follow-up visits as told by your health care provider. This is important. Contact a health care provider if: ??? You keep feeling nauseous or you keep vomiting. ??? You feel light-headed. ??? You develop a rash. ??? You have a fever. Get help right away if: ??? You have trouble breathing. This information is not intended to replace advice given to you by your health care provider. Make sure you discuss any questions you have with your health care provider. Document Released: 05/07/2014 Document Revised: 12/19/2016 Document Reviewed: 11/05/2016 [employer] Patient Education ?? 2019 [employer]. Heart-Healthy Eating Plan Heart-healthy meal planning includes: ??? Limiting unhealthy fats. ??? Increasing healthy fats. ??? Making other small dietary changes. You may need to talk with your doctor or a diet specialist (dietitian) to create an eating plan that is right for you. What types of fat should I choose? Choose healthy fats. These include olive oil and canola oil, flaxseeds, walnuts, almonds, and seeds. ??? Eat more omega-3 fats. These include salmon, mackerel, sardines, tuna, flaxseed oil, and ground flaxseeds. Try to eat fish at least twice each week. ??? Limit saturated fats. ? Saturated fats are often found in animal products, such as meats, butter, and cream. ? Plant sources of saturated fats include palm oil, palm kernel oil, and coconut oil. ??? Avoid foods with partially hydrogenated oils in them. These include stick margarine, some tub margarines, cookies, crackers, and other baked goods. These contain trans fats. What general guidelines do I need to follow? Check food labels carefully. Identify foods with trans fats or high amounts of saturated fat. ??? Fill one half of your plate with vegetables and green salads. Eat 4???5 servings of vegetables per day. A serving of vegetables is: ? 1 cup of raw leafy vegetables. ? ?? cup of raw or cooked cut-up vegetables. ? ?? cup of vegetable juice. ??? Fill one fourth of your plate with whole grains. Look for the word whole as the first word in the ingredient list. ??? Fill one fourth of your plate with lean protein foods. ??? Eat 4???5 servings of fruit per day. A serving of fruit is: ? One medium whole fruit. ? ?? cup of dried fruit. ? ?? cup of fresh, frozen, or canned fruit. ? ?? cup of 100% fruit juice. ??? Eat more foods that contain soluble fiber. These include apples, broccoli, carrots, beans, peas, and barley. Try to get 20???30 g of fiber per day. ??? Eat more home-cooked food. Eat less restaurant, buffet, and fast food. ??? Limit or avoid alcohol. ??? Limit foods high in starch and sugar. ??? Avoid fried foods. ??? Avoid frying your food. Try baking, boiling, grilling, or broiling it instead. You can also reduce fat by: ? Removing the skin from poultry. ? Removing all visible fats from meats. ? Skimming the fat off of stews, soups, and gravies before serving them. ? Steaming vegetables in water or broth. ??? Lose weight if you are overweight. ??? Eat 4???5 servings of nuts, legumes, and seeds per week: ? One serving of dried beans or legumes equals ?? cup after being cooked. ? One serving of nuts equals 1?? ounces. ? One serving of seeds equals ?? ounce or one tablespoon. ??? You may need to keep track of how much salt or sodium you eat. This is especially true if you have high blood pressure. Talk with your doctor or dietitian to get more information. What foods can I eat? Grains Breads, including Korean, white, trena, wheat, raisin, rye, oatmeal, and Marshallese. Tortillas that are neither fried nor made with lard or trans fat. Low-fat rolls, including hotdog and hamburger buns and Lebanese muffins. Biscuits. Muffins. Waffles. Pancakes. Light popcorn. Whole-grain cereals. Flatbread. [place] toast. Pretzels. Breadsticks. Rusks. Low-fat snacks. Low-fat crackers, including oyster, saltine, matzo, refugio, animal, and rye. Rice and pasta, including brown rice and pastas that are made with whole wheat. Vegetables All vegetables. Fruits All fruits, but limit coconut. Meats and Other Protein Sources Lean, well-trimmed beef, veal, pork, and pedro. Chicken and turkey without skin. All fish and shellfish. Wild duck, rabbit, pheasant, and venison. Egg whites or low-cholesterol egg substitutes. Dried beans, peas, lentils, and tofu. Seeds and most nuts. Dairy Low-fat or nonfat cheeses, including ricotta, string, and mozzarella. Skim or 1% milk that is liquid, powdered, or evaporated. Buttermilk that is made with low-fat milk. Nonfat or low-fat yogurt. Beverages Mineral water. Diet carbonated beverages. Sweets and Desserts Sherbets and fruit ices. Honey, jam, marmalade, jelly, and syrups. Meringues and gelatins. Pure sugar candy, such as hard candy, jelly beans, gumdrops, mints, marshmallows, and small amounts of dark chocolate. Nishant food cake. Eat all sweets and desserts in moderation. Fats and Oils Nonhydrogenated (trans-free) margarines. Vegetable oils, including soybean, sesame, sunflower, olive, peanut, safflower, corn, canola, and cottonseed. Salad dressings or mayonnaise made with a vegetable oil. Limit added fats and oils that you use for cooking, baking, salads, and as spreads. Other [place] powder. Coffee and tea. All seasonings and condiments. The items listed above may not be a complete list of recommended foods or beverages. Contact your dietitian for more options. What foods are not recommended? Grains Breads that are made with saturated or trans fats, oils, or whole milk. Croissants. Butter rolls. Cheese breads. Sweet rolls. Donuts. Buttered popcorn. Agrawal mein noodles. High-fat crackers, such as cheese or butter crackers. Meats and Other Protein Sources Fatty meats, such as hotdogs, short ribs, sausage, spareribs, nash, rib eye roast or steak, and mutton. High-fat deli meats, such as salami and bologna. Caviar. Domestic duck and goose. Organ meats, such as kidney, liver, sweetbreads, and heart. Dairy Cream, sour cream, cream cheese, and creamed cottage cheese. Whole-milk cheeses, including blue (jimbo), [place] Juvencio, Brie, Frankie, Romanian, Havarti, Belarusian, cheddar, Camembert, and Abiquiu. Whole or 2% milk that is liquid, evaporated, or condensed. Whole buttermilk. Cream sauce or high-fat cheese sauce. Yogurt that is made from whole milk. Beverages Regular sodas and juice drinks with added sugar. Sweets and Desserts Frosting. Pudding. Cookies. Cakes other than nishant food cake. Candy that has milk chocolate or white chocolate, hydrogenated fat, butter, coconut, or unknown ingredients. Buttered syrups. Full-fat ice cream or ice cream drinks. Fats and Oils Gravy that has suet, meat fat, or shortening. [place] butter, hydrogenated oils, palm oil, coconut oil, palm kernel oil. These can often be found in baked products, candy, fried foods, nondairy creamers, and whipped toppings. Solid fats and shortenings, including nash fat, salt pork, lard, and butter. Nondairy cream substitutes, such as coffee creamers and sour cream substitutes. Salad dressings that are made of unknown oils, cheese, or sour cream. The items listed above may not be a complete list of foods and beverages to avoid. Contact your dietitian for more information. This information is not intended to replace advice given to you by your health care provider. Make sure you discuss any questions you have with your health care provider. Document Released: 01/15/2013 Document Revised: 12/22/2016 Document Reviewed: 01/08/2015 [employer] Interactive Patient Education ?? 2019 [employer]. Venogram A venogram, or venography, is a procedure that uses an X-ray and dye (contrast) to examine how well the veins work and how blood flows through them. Contrast helps the veins show up on X-rays. A venogram may be done: ??? To evaluate vein abnormalities. ??? To identify clots within veins, such as deep vein thrombosis (DVT). ??? To map out the veins that might be needed for another procedure. Tell a health care provider about: ??? Any allergies you have, especially to medicines, shellfish, iodine, and contrast. ??? All medicines you are taking, including vitamins, herbs, eye drops, creams, and kebx-ooj-zpeyxda medicines. ??? Any problems you or family members have had with anesthetic medicines. ??? Any blood disorders you have. ??? Any surgeries you have had and any complications that occurred. ??? Any medical conditions you have. ??? Whether you are , may be , or are . ??? Any history of smoking or tobacco use. What are the risks? Generally, this is a safe procedure. However, problems may occur, including: ??? Infection. ??? Bleeding. ??? Blood clots. ??? Allergic reaction to medicines or contrast. ??? Damage to other structures or organs. ??? Kidney problems. ??? X-ray exposure. Being exposed to too much radiation over a lifetime can increase the risk of cancer. The risk of this is small. What happens before the procedure? Medicines Ask your health care provider about: ??? Changing or stopping your normal medicines. This is especially important if you take diabetes medicines or blood thinners. ??? Taking medicines such as aspirin and ibuprofen. These medicines can thin your blood. Do not take these medicines before your procedure if your doctor instructs you not to. General instructions ??? You may have blood tests to check how well your kidneys and liver are working and how well your blood can clot. ??? Plan to have someone take you home from the hospital or clinic. ??? Follow instructions from your health care provider about eating and drinking. What happens during the procedure? An IV will be inserted into one of your veins. ??? You may be given a medicine to help you relax (sedative). ??? You will lie down on an X-ray table. The table may be tilted in different directions during the procedure to help the contrast move throughout your body. Safety straps will keep you secure if the table is tilted. ??? If veins in your arm or leg will be examined, a band may be wrapped around that arm or leg to keep the veins full of blood. This may cause your arm or leg to feel numb. ??? The contrast will be injected into your IV tube. You may notice a hot, flushed feeling as it moves throughout your body. You may also notice a metallic taste in your mouth. Both of these sensations will go away after the test is complete. ??? You may be asked to lie in different positions or place your legs or arms in different positions. ??? At the end of the procedure, you may be given IV fluids to help wash (flush) the contrast out of your veins. ??? The IV tube will be removed, and pressure will be applied to the IV site to prevent bleeding. A bandage (dressing) may be applied to the IV site. What happens after the procedure? Your blood pressure, heart rate, breathing rate, and blood oxygen level will be monitored until the medicines you were given have worn off. ??? You may be given something to eat and drink. ??? You will be instructed to drink a lot of fluids for the rest of the day and the next day. This helps to help flush the contrast out of your body. ??? If you were given a sedative, do not drive for 24 hours or until your health care provider approves. Summary ??? A venogram, or venography, is a procedure that uses an X-ray and dye (contrast) to examine how well the veins work and how blood flows through them. Contrast is a dye that helps the veins show up on X-rays. ??? An IV tube will be inserted into one of your veins in order to inject the contrast. ??? During the exam, you will lie on an X-ray table. The table may be tilted in different directions during the procedure to help the contrast move throughout your body. Safety straps will keep you secure. ??? After the procedure, you will need to drink a lot of fluids to help wash (flush) the contrast out of your body. This information is not intended to replace advice given to you by your health care provider. Make sure you discuss any questions you have with your health care provider. Document Released: 07/05/2010 Document Revised: 06/10/2017 Document Reviewed: 06/10/2017 [employer] Interactive Patient Education ?? 2019 [employer]. Emergency Awareness and Preventative Care STROKE is an EMERGENCY Every Minute Counts Act FAST and Check for these signs: FACE Does the face look uneven? ARM Does one arm drift down? SPEECH Does their speech sound strange? TIME Call at any sign of stroke Stroke Risk Factors Atrial Fibrillation (irregular heartbeat) Diabetes Family history of stroke Heart Disease Heavy alcohol use High Blood Pressure High Cholesterol Physical inactivity and obesity Smoking Cigarette Smoking The facts are clear, cigarette smoking will shorten your life. Smoking can cause many illnesses along the way. As a healthcare provider, we recommend that you stop smoking. Assistance with quitting is available by contacting 7-314-IHRE-NOW. This is a free resource providing counseling, support, and referral. Or you may contact your personal physician. National Suicide Prevention Lifeline: The National Suicide Prevention Lifeline is a national network of local crisis centers that provides free and confidential emotional support to people in suicidal crisis or emotional distress 24 hours a day, 7 days a week. Don't Wait! Stop a Heart Attack Before it Starts What is a heart attack? A heart attack is damage or to a part of the heart from severely decreased or lack of blood flow to the heart. Over time, arteries can become narrow from the buildup of fat and cholesterol, which is called plaque. The plaque can rupture causing a blood clot to form. When the blood clot forms, the artery can become severely narrowed or completely blocked, causing a heart attack. Heart attack is the leading cause of in the [place]. 85% of muscle damage occurs within the first 2 hours. Delay in the recognition of heart attack symptoms increases the chances of . Know the early symptoms of a heart attack: Nausea Feeling of fullness in chest Jaw Pain Pain that travels down one or both arms Fatigue/being tired Anxiety Back Pain Chest pressure, squeezing, or discomfort Shortness of breath Sweating, or a cold sweat Feeling of impending doom There are unusual signs of a heart attack, too! Women, the elderly, and diabetics may present with atypical symptoms: Fainting/dizziness Weakness Confusion Risk Factors for a Heart Attack Some heart disease risk factors, such as age and family history, cannot be changed. Others, like smoking and lack of exercise, can be changed. Smoking High Cholesterol High Blood Pressure Family History Obesity Age Gender (Males are at higher risk) Lack of Exercise Diabetes Diet Stress Excessive Alcohol Intake If you or someone you know is experiencing the signs and symptoms of a heart attack, DON???T DELAY. Call immediately and seek help. If someone collapses, perform CPR! Do not attempt to drive if you are having symptoms of heart attack. Hands-Only CPR Why Hands-Only CPR? Hands-Only CPR has been shown to be as effective as conventional CPR for cardiac arrests that occur outside of a hospital. Survival depends on immediately receiving CPR from someone nearby. How do you perform Hands-Only CPR? There are two easy steps: Call if you see a teen or adult collapse Push hard and fast in the center of the chest at a beat of 100 beats per minute. Save a life! 4 WAYS TO GET AHEAD OF SEPSIS SEPSIS is a MEDICAL EMERGENCY. Time matters! Infections put you and your family at risk for a life-threatening condition called sepsis. Sepsis is the body's extreme response to an infection. It is life-threatening, and without timely treatment, sepsis can rapidly lead to tissue damage, organ failure, and . Sepsis happens when an infection you already have-in your skin, lungs, urinary tract or somewhere else-triggers a chain reaction throughout your body. 1 PREVENT INFECTIONS Take good care of chronic conditions. Talk to your doctor about getting the recommended vaccines. 2 PRACTICE GOOD HYGIENE Wash your hands frequently. Keep cuts or open sores clean and covered until they are healed. 3 KNOW THE SYMPTOMS Confusion or disorientation Shortness of breath High heart rate Fever, shivering, or feeling very cold Extreme pain or discomfort Clammy or sweaty skin 4 ACT FAST Get medical care IMMEDIATELY if you suspect sepsis or if you have an infection that is not getting better or is getting worse. To learn more about sepsis and how to prevent infections, visit www.cdc.gov/sepsis. Patient Portal Reminder: Be sure to sign up for the [facility] patient portal, which gives you 20/02 access to your medical information ??? including these discharge instructions ??? using your computer, smartphone, or tablet. Just go to [employer] to get started. Questions? Call . Test Results Laboratory or Other Results This Visit (last charted value for your 12/13/2018 visit) Hematology 12/13/18 08:16:00 Platelet Count: 262 K/uL -- Normal range between ( 163 and 369 ) Patient Name:MATT DEVRIES I have received and understand this information and was given the opportunity to ask questions. Patient/Mortgage Lender Name: Patient/Mortgage Lender Signature: Relationship to Patient: Clinician/Hospital Mortgage Lender Signature: Date: documented in this encounter Plan of Treatment Not on file documented as of this encounter Visit Diagnoses Not on filedocumented in this encounter
--- OUTSIDE RECORDS SUMMARY | 2025-01-30 13:01 | XMS_ITS | Clinical Summary ---
Author Organization [email or web address] ([place], [place], [place], [place]) Address [address] [place] [address] Care Team Providers Care Insurance Advisor Name Role Phone Unavailable Primary Care Provider [...]
--- OUTSIDE RECORDS SUMMARY | 2025-01-30 13:02 | XMS_ITS | Encounter Summary ---
Author Organization [employer] ([place], [place], [place], [place]) Address [address] [place] [address] Care Team Providers Care Senior Technical Trainer Name Role Phone Unavailable Primary Care Provider Unavailabl e Encounter Details Date Type Department Care Team (Late st Contact Info) Description 12/13/2018 Transcribed Document [facility] [place] Family Medicine [facility] [place] [address] ProviderKaylie MD [address] [place] [id number] Social History Tobacco Use Types Packs/Day Years Used Date Smoking Tobacco: Never Assessed Sex and Gender Information Value Date Recorded Sex Assigned at Not on file Legal Sex Male 4:50 PM CDT Gender Identity Not on file Sexual Orientation Not on file documented as of this encounter Miscellaneous Notes * Cerner Conversion Note - Kaylie ProviderMD - 12/13/2018 8:29 AM CDT PAT / Pre Procedure Adult Entered On: 12/13/2018 8:36 EDT Performed On: 12/13/2018 8:29 EDT by CHRISS ONTIVEROS General Info Arrived From : Home Mode of Arrival on Unit : Wheelchair Legal Guardian : Spouse Support Person/Patient Plate Glass Installer Helper : No Support Person/Pt Rep Name : esau Support Person/Pt Rep Contact Information : [phone] Want Family/Rep/Phys Notified of Admit : No Emergency Contact #1 : rani Emergency Contact #1 Emergency Contact #1 Relationship : Emergency Contact #2 : na Emergency Contact #2 Phone Number : na Emergency Contact #2 Relationship : na Chief Complaint : lle edema/pain Information Obtained From : Patient Primary Language : Cuban Preferred Communication Mode : Verbal Communication Barrier : None CHRISS ONTIVEROS - 12/13/2018 8:29 EDT Height and Weight, Clinical Dosing Height Source : Stated Height Entry Format : [place] Height, Feet : 5 ft(Converted to: 152 cm, 60 Inch) Height, Inches : 7 Inch(Converted to: 0 ft 7 Inch, 17.78 cm) Clinical Height : 170.18 cm Weight Source : Standing scale Weight Entry Format : [place] Clinical Dosing Weight : 138.64 kg Weight, Pounds : 305 lb Body Surface Area (BSA) : 2.42 m2 Body Mass Index : 47.9 kg/m2 (>HHI) [place] Body Weight : 65 kg CHRISS ONTIVEROS - 12/13/2018 8:29 EDT Health Histories Smoking Status : 10 or more cigarettes (1/2 pack or more)/day in last 30 days Smokeless Tobacco Status : Refused tobacco status screen Desires Tobacco Cessation Medication : No Reason for No Tobacco Cessation Medication : Refuses FDA approved medications CHRISS ONTIVEROS 12/13/2018 8:29 EDT Social History (As Of: 12/13/2018 08:36:31 EDT) Tobacco: 10 or more cigarettes (1/2 pack or more)/day in last 30 days Smoking Status. Last Used: smokes 2 packs per day. (Last Updated: 12/13/2018 08:32:23 EDT by CHRISS ONTIVEROS) Anesthesia/Transfusion History Family History of Anesthesia Reaction : No prior transfusion(s) Blood Transfusion Acceptable to Patient : Yes Transfusion History : Prior anesthesia reaction Family History of Anesthesia Reaction : None CHRISS ONTIVEROS 12/13/2018 8:29 EDT Infectious Disease History Infectious Disease History : Chicken pox/Shingles Fever/Chills Last 48 Hours : No Travel To Regions with Travel Advisories : No Travel Outside [place] Within Last 30 Days : No Contact With Traveler to Advisory Region : No Tuberculosis Symptoms : None CHRISS ONTIVEROS 12/13/2018 8:29 EDT Advance Directive Patient has Advance Directive *Q : No, patient refuses Advance Directive information CHRISS ONTIVEROS 12/13/2018 8:29 EDT Vital Measurements Temperature Source : Temporal artery scanning Temperature Mode : Fahrenheit Temperature, Fahrenheit : 97.3 Deg F Clinical Temperature, C : 36.3 Deg C Pulse Method : Pulse Oximetry Peripheral Pulse Rate : 68 bpm Respiratory Rate : 18 Breaths/Min Blood Pressure Location : Arm, right upper Blood Pressure Source : Non-Invasive BP Device Blood Pressure Position : Sitting Systolic Blood Pressure : 106 mmHg Diastolic Blood Pressure : 66 mmHg Oxygen Saturation : 93 % (LOW) Oxygen Therapy Mode : Room air WESTONCHRISS 12/13/2018 8:29 EDT Sleep Apnea Risk Assmt BiPAP/CPAP Ordered for Home Use : Yes Hx of Obstructive Sleep Apnea Diagnosis : Yes BiPAP/CPAP Used at Home : No Reason BiPAP/CPAP Not Used at Home : ins wont pay for new one as old one broke per pt Age over 50 Years Old : No Gender Male : Yes CHRISS ONTIVEROS 12/13/2018 8:29 EDT Jeffery Scale Jeffery Sensory Perception : No impairment Jeffery Moisture : Rarely moist Jeffery Activity : Walks occasionally Jeffery Mobility : No limitation Jeffery Nutrition : Adequate Jeffery Friction and Shear : No apparent problem Jeffery Score : 21 CHRISS ONTIVEROS 12/13/2018 8:29 EDT Psychosocial History Currently in Unsafe Situation : No Tried to Harm Yourself in the Past? : No Thoughts of Harming/Killing Yourself : No CHRISS ONTIVEROS 12/13/2018 8:29 EDT Fall Risk Scales ABCs Fall Injury Risk Identification : None FISH Hx Falls Immediate/Within 3 Months : No Fish Secondary Diagnosis : Yes FISH Use of Ambulatory Aid : None FISH IV Therapy or IV Access : Yes Fish Gait/Transferring : Normal, bedrest, immobile Fish Mental Status : Oriented to own ability FISH Fall Scale Risk Level : 25-45 Medium Risk [place] Fall Interventions : Adequate lighting, Assistive devices within reach, Bed in low position, Call device within reach, Fall prevention handout/education per facility policy, Frequent orientation to call device, Frequent orientation to surroundings, Hourly comfort/safety rounds, Non-slip footwear, Personal items within reach, Reinforced to call for assistance before getting out of bed, Room free of clutter/spills, Wheels locked, Wires/Cords secured CHRISS ONTIVEROS 12/13/2018 8:29 EDT Pain Assessment Pain Assessment : Initial assessment Pain Scale Used : 0-10 Scale Location : Back CHRISS ONTIVEROS 12/13/2018 8:29 EDT Pain Scale Intensity : 3 CHRISS ONTIVEROS 12/13/2018 8:29 EDT Image 4 - Images currently included in the form version of this document have not been included in the text rendition version of the form. Functional Assessment Living Situation : Home Patient Lives With : Spouse Current Home Treatments : Blood glucose monitoring CHRISS ONTIVEROS Jayda 12/13/2018 8:29 EDT Influenza Vaccine Asmt, Adult Previous Vaccines from Immunization Schedule : No qualifying data available. Influenza Immunization, Current Season : Yes CHRISS ONTIVEROS 12/13/2018 8:29 EDT Pneumococcal Vaccine Previous Vaccines from Immunization Schedule : No qualifying data available. Pneumonia Immunization Received : Yes CHRISS ONTIVEROS Jayda 12/13/2018 8:29 EDT Valuables and Belongings Valuables and Belongings : Clothing Clothing : Common streetwear Clothing Disposition : Bedside, With family CHRISS ONTIVEROS 12/13/2018 8:29 EDT documented in this encounter Plan of Treatment Not on file documented as of this encounter Visit Diagnoses Not on filedocumented in this encounter
--- OUTSIDE RECORDS SUMMARY | 2025-01-30 13:02 | XMS_ITS | Encounter Summary ---
Author Organization [employer] ([place], [place], [place], [place]) Address [address] [place] [address] Care Team Providers Care Air Value Tester Name Role Phone Unavailable Primary Care Provider Unavailabl e Encounter Details Date Type Department Care Team (Late st Contact Info) Description 12/13/2018 Transcribed Document [facility] [place] Family Medicine [address] [place] [address] ProviderKaylie MD [facility] [place] [address] Social History Tobacco Use Types Packs/Day Years Used Date Smoking Tobacco: Never Assessed Sex and Gender Information Value Date Recorded Sex Assigned at Not on file Legal Sex Male 4:50 PM CDT Gender Identity Not on file Sexual Orientation Not on file documented as of this encounter Miscellaneous Notes * Cerner Conversion Note - Historical ProviderMD - 12/13/2018 12:05 PM CDT Stroke/Warfarin Instructions Entered On: 12/13/2018 12:05 EDT Performed On: 12/13/2018 12:05 EDT by CHRISS ONTIVEROS Stroke/Warfarin Instructions Stroke/TIA Discharge Ins : N/A Warfarin Discharge Ins : N/A CHRISS ONTIVEROS - 12/13/2018 12:05 EDT documented in this encounter Plan of Treatment Not on file documented as of this encounter Visit Diagnoses Not on filedocumented in this encounter
--- OUTSIDE RECORDS SUMMARY | 2025-01-30 13:02 | XMS_ITS | Encounter Summary ---
Author Organization [employer] ([place], [place], [place], [place]) Address [address] [place] [address] Care Team Providers Care Snowsport Instructor Name Role Phone Unavailable Primary Care Provider Unavailabl e Encounter Details Date Type Department Care Team (Late st Contact Info) Description 12/13/2018 Transcribed Document [facility] [place] [facility] [place] [address] ProviderKaylie MD [facility] [address] Social History Tobacco Use Types Packs/Day Years Used Date Smoking Tobacco: Never Assessed Sex and Gender Information Value Date Recorded Sex Assigned at Not on file Legal Sex Male 4:50 PM CDT Gender Identity Not on file Sexual Orientation Not on file documented as of this encounter Miscellaneous Notes * Cerner Conversion Note - Kaylie Freeman MD - 12/13/2018 12:01 PM CDT Patient Education Materials Follows: Femoral Site Care Refer to this sheet [...] at the site that usually fades within 1?2 weeks. ??? Blood collecting in the tissue (hematoma) that may be painful to the touch. It should usually decrease in size and tenderness within 1?2 weeks. Follow these instructions at home: ??? Take medicines only as directed by your health care provider. ??? You may shower 24?48 hours after the procedure or as directed [...] to twice a day for the first 2?3 days or as directed by your health care provider. ??? Do not squat for the first 2?3 days or as directed by your health [...] 03/20/2015 Document Revised: 12/22/2016 Document Reviewed: 02/03/2015 [employer] Interactive Patient Education ? 2019 [employer] Steps to Quit Smoking Smoking tobacco [...] 05/13/2010 Document Revised: 03/14/2017 Document Reviewed: 12/01/2015 [employer] Interactive Patient Education ? 2019 [employer] Moderate Conscious Sedation, Adult, Care After [...] you are awake and alert. ??? Take stio-tzt-ilefoxr and prescription medicines only as told by [...] 05/07/2014 Document Revised: 12/19/2016 Document Reviewed: 11/05/2016 [employer] Interactive Patient Education ? 2019 [employer] Heart-Healthy Eating Plan Heart-healthy meal planning includes: [...] plate with vegetables and green salads. Eat 4?5 servings of vegetables per day. A serving of vegetables is: ? 1 cup of raw leafy vegetables. ? ? cup of raw or cooked cut-up vegetables. ? ? cup of vegetable juice. ??? Fill one fourth of your plate with whole grains. Look for the word whole as the first word in the ingredient list. ??? Fill one fourth of your plate with lean protein foods. ??? Eat 4?5 servings of fruit per day. A serving of fruit is: ? One medium whole fruit. ? ? cup of dried fruit. ? ? cup of fresh, frozen, or canned fruit. ? ? cup of 100% fruit juice. ??? Eat more foods that contain soluble fiber. These include apples, broccoli, carrots, beans, peas, and barley. Try to get 20?30 g of fiber per day. ??? Eat [...] weight if you are overweight. ??? Eat 4?5 servings of nuts, legumes, and seeds per week: ? One serving of dried beans or legumes equals ? cup after being cooked. ? One serving of nuts equals 1? ounces. ? One serving of seeds equals ? ounce or one tablespoon. ??? You may need to keep track of how much salt or sodium you eat. This is especially true if you have high blood pressure. Talk with your doctor or dietitian to get more information. What foods can I eat? Grains Breads, including German, white, trena, wheat, raisin, rye, oatmeal, and Tuvaluan. Tortillas that are neither fried nor made with lard or trans fat. Low-fat rolls, including hotdog and hamburger buns and Maltese muffins. Biscuits. Muffins. Waffles. Pancakes. Light popcorn. [...] cooking, baking, salads, and as spreads. Other [place] powder. Coffee and tea. All seasonings and [...] cottage cheese. Whole-milk cheeses, including blue (jimbo), [place]oa Juvencio, Brie, Frankie, Cypriot, Havarti, Bermudian, cheddar, Camembert, and Canalou. Whole or 2% milk that is liquid, [...] that has suet, meat fat, or shortening. [place] butter, hydrogenated oils, palm oil, coconut oil, [...] 01/15/2013 Document Revised: 12/22/2016 Document Reviewed: 01/08/2015 [employer] Interactive Patient Education ? 2019 [email or web address]. Radiology Venogram A venogram, or venography, is a [...] including vitamins, herbs, eye drops, creams, and vxxh-ahx-kvrwxyq medicines. ??? Any problems you or family [...] 07/05/2010 Document Revised: 06/10/2017 Document Reviewed: 06/10/2017 Elsevier Interactive Patient Education ? 2019 [employer] documented in this encounter Plan of Treatment Not on file documented as of this encounter Visit Diagnoses Not on filedocumented in this encounter
--- OUTSIDE RECORDS SUMMARY | 2025-01-30 13:02 | XMS_ITS | Encounter Summary ---
Author Organization [employer] ([place], [place], [place], [place]) Address [address] [place] [address] Care Team Providers Care Core Feeder Name Role Phone Unavailable Primary Care Provider Unavailabl e Encounter Details Date Type Department Care Team (Late st Contact Info) Description 12/13/2018 Transcribed Document [facility] [place] Family Medicine [address] [place] [address] ProviderKaylie MD [facility] [place] [address] Social History Tobacco Use Types Packs/Day Years Used Date Smoking Tobacco: Never Assessed Sex and Gender Information Value Date Recorded Sex Assigned at Not on file Legal Sex Male 4:50 PM CDT Gender Identity Not on file Sexual Orientation Not on file documented as of this encounter Miscellaneous Notes * Cerner Conversion Note - Historical ProviderMD - 12/13/2018 1:28 PM CDT Nursing Discharge Summary Entered On: 12/13/2018 13:28 EDT Performed On: 12/13/2018 13:28 EDT by CHRISS ONTIVEROS Discharge Documentation Discharge Date/Time : 12/13/2018 13:28 EDT Transporter Signature : CHRISS ONTIVEROS Patient Disposition, General : Discharge Discharge To : Home with ambulatory/outpatient follow-up Mode Of Departure, General Discharge : Wheelchair with adult Accompanied By, Discharge : Spouse IV Discontinued : Yes Personal Belongings With Patient : Yes Discharge Instructions Reviewed With, Opportunity For Questions Given : Patient Patient Education Completed : Yes Teaching Method : Explanation, Printed materials Teaching Evaluation : Verbalizes understanding Education Comment : tolerated procedure without difficulty. skin wdp resp unlabored/even/a+ox4 CHRISS ONTIVEROS - 12/13/2018 13:28 EDT Electronically signed by [facility] Conversion Assistant Facility Manager [employer]ner at 11/16/2022 7:40 AM CDT documented in this encounter Plan of Treatment Not on file documented as of this encounter Visit Diagnoses Not on filedocumented in this encounter
--- OUTSIDE RECORDS SUMMARY | 2025-01-30 13:02 | XMS_ITS | Encounter Summary ---
Author Organization [employer] ([place], [place], [place], [place]) Address [address] [place] [address] Care Team Providers Care Engineering Mathematician Name Role Phone Unavailable Primary Care Provider Unavailabl e Encounter Details Date Type Department Care Team (Late st Contact Info) Description 12/13/2018 Transcribed Document [facility] Radiology [address] [place] [address] Jesse Sánchez MD [address] [facility] [place] [id number] Social History Tobacco Use Types Packs/Day Years Used Date Smoking Tobacco: Never Assessed Sex and Gender Information Value Date Recorded Sex Assigned at Not on file Legal Sex Male 4:50 PM CDT Gender Identity Not on file Sexual Orientation Not on file documented as of this encounter Miscellaneous Notes * Cerner Conversion Note - Jesse Sánchez MD - 12/13/2018 12:36 PM EDT DATE OF PROCEDURE: 12/13/2018 PREOPERATIVE DIAGNOSIS(ES): 1. Left leg lymphedema. 2. Chronic venous hypertension. POSTOPERATIVE DIAGNOSIS(ES): 1. Left leg lymphedema. 2. Chronic venous hypertension. PROCEDURE: 1. Left femoral venous access under ultrasound guidance. 2. Pelvic venogram. 3. Intravascular ultrasound, left external iliac vein, left common iliac vein. SURGEON: Jesse Sánchez MD INDICATION: Patient is a 38-year-old male with morbid obesity and chronic left leg swelling. Only a left leg has been involved, he has been treated for lymphedema. He has been offered pelvic venogram for concern of central venous obstruction. OPERATIVE FINDINGS: 1. Normal flow within the left external and common iliac vein without evidence of obstruction. 2. Intravascular ultrasound demonstrating no significant obstruction either intraluminal or extrinsic upon the external and common iliac venous system. SEDATION: Moderate sedation. OPERATIVE DESCRIPTION: Patient was taken back to the labor mediator, placed in supine position. Following a time-out, bilateral groins were widely prepped and draped in standard sterile fashion. He was sedated with 2 mg of Versed and 50 mcg of fentanyl. Under ultrasound evaluation, the left greater saphenous vein was assessed. This was patent. Imaging was documented within the chart. It was accessed successfully with a micropuncture needle. A 9-[place]icar[place] sheath was placed. A pelvic venogram was performed demonstrating patency of the common femoral vein, external iliac vein, and common iliac vein. Next, an 0.035 wire was advanced within the vena cava. IVUS catheter was advanced from the femoral vein extending into the vena cava. This demonstrated no significant obstruction. Catheter was removed as well as the sheath. Manual compression was applied. Patient was taken back to Recovery in stable condition. No complications. Jesse Sánchez M.D. Dict: 12/13/2018 11:36:11 Trans: 12/13/2018 17:19:37 CC1: Jesse Sánchez M.D. documented in this encounter Plan of Treatment Not on file documented as of this encounter Visit Diagnoses Not on filedocumented in this encounter
[2025-01-30 13:04] LABS: Microscopic, Urine URINE MICROSCOPIC (MICROSCOPIC)
[2025-01-30 13:29] LABS: Bilirubin,Urine Negative (Negative); Color,Urine YELLOW (Yellow); Glucose,Urine (UA) Negative (Negative); Ketones,Urine Negative (Negative); Leukocyte Esterase,Urine Negative (Negative); PH,Urine 6.0 (5.0-8.5); Protein,Urine 2+ (Negative); Specific Gravity, Urine 1.015 (1.005-1.030); Urobilinogen,Urine 0.2 EU/dl (0.2)
[2025-01-30 13:30] LABS: Hematocrit 36.1 % (42.0-52.0); Hemoglobin 11.6 g/dL (14.1-18.0); Mean Corpuscular HGB Conc 32.1 g/dL (31.8-35.4); Mean Corpuscular Hemoglobin 29.7 pg (27.0-31.2); Mean Corpuscular Volume 92.3 fl (80-94); Nucleated Red Blood Cells % 0 %; Platelet Count 290 K/mm3 (142-424); Red Blood Count 3.91 M/mm3 (4.60-6.20); Red Cell Distribution Width-SD 48.5 fL; White Blood Count 10.5 K/mm3 (4.8-10.8)
[2025-01-30 13:45] LABS: Bacteria,Urine Trace /lpf; RBC,Urine Occasional #/hpf (0-3); Squamous Epithelial Cell,Urine Occasional #/hpf (0-5)
[2025-01-30 13:57] LABS: Albumin Level 4.7 g/dl (3.5-5.0); Anion Gap 14.8 mEq/L (5-15); Blood Urea Nitrogen 30 mg/dl (9-20); Calcium 9.6 mg/dl (8.4-10.2); Carbon Dioxide 22 mmol/L (22.0-30.0); Chloride 106 mmol/L (98-107); Creatinine,Serum 2.10 mg/dl (0.66-1.25); Estimated Glomerular Filt Rate 34 ml/min (>60); GFR (African American) 42 ML/MIN (>60); Glucose 107 mg/dl (74-100); Phosphorous 3.8 mg/dl (2.5-4.5); Potassium 4.8 mmoL/L (3.5-5.1); Sodium 138 mmol/L (136-145)
[2025-01-30 14:14] LABS: 25-OH Vitamin D, Total 30.7 ng/mL (30-100)
== END 2025-01-30 23:59 | disposition home or self-care (01) ==
LOC: LAB 12:56
PROVIDERS: PCP Family Medicine; Visit Provider Nurse Practitioner
DX: N18.32 Chronic kidney disease, stage 3b (principal)
CPT/HCPCS: 36415; 80069; 81001; 82306; 82570; 83970; 85027

== ENCOUNTER 2025-03-05 08:02 | Day surgery (SDC) | payer MEDICARE, MEDICAID, SELFPAY ==
[2025-02-25 12:51] VITALS: BMI 46.8
[2025-03-05 08:43] VITALS: BP 121/71; PULSE 75; RESP 16; TEMP 36.5; O2SAT 94; BMI 46.8
[2025-03-05] MEDS: LACTATED RINGERS 1000ML 1,000 ML 50 ML IV (08:56)
[2025-03-05 09:00] LABS: POC Glucose,Bedside 134 (70-110)
--- NOTE | 2025-03-05 09:06 | P.HP_ITS ---
History of Present Illness *Admission Date: 03/05/25 *Reason for visit:: Screening for colon cancer *History of present illness: Mr. Kwok is a 44-year-old gentleman who is here for screening colonoscopy. The examination is deemed medically necessary for screening colonoscopy. The p carlin has been seen, interviewed and examined prior to the procedure by both myself and the anesthesia provider. [facility] Disclaimer: The information contained in this section may have been updated after the patient was seen, as this information can be updated by other users. Medical History (Updated 03/05/25 @ 09:07 by Kishore Woo II, MD) Lupus Pre-op exam (HFpEF) heart failure with preserved ejection fraction SOB (shortness of breath) Dysphonia Globus sensation Testosterone deficiency Androgen deficiency Gout Chronic renal failure, stage 3 (moderate) CKD (chronic kidney disease) HLD (hyperlipidemia) HTN (hypertension) Nonischemic cardiomyopathy Kidney disease Chest pain Edema Dyspnea CHF (congestive heart failure) BEATRICE (acute kidney injury) Obstructive sleep apnea syndrome Chronic obstructive lung disease Pituitary mass Morbid obesity Diabetes mellitus Pulmonary hypertension Hypertensive heart disease Surgical History History of lymph node excision History of dental surgery History of tonsillectomy History of carpal tunnel release H/O removal of testicle Family History Grandfather Cancer Coronary artery disease Grandmother Cancer Coronary artery disease Mother Diabetes Father Heart attack Hypertension Stroke Social History (Updated 03/05/25 @ 08:44 by Celia Kenny RN) Smoking Status: Current every day smoker tobacco type: cigarettes packs per day: 1 alcohol intake: never substance use type: denies use current occupational status: other Travel in the last 8 weeks?: None household members: children and other housing: house caffeine: Yes Have you lived/traveled outside US in past 30 days?: No Contact w/someone who lives/traveled outside US past 30 days?: No Exposure to someone with infectious disease in past 14 days?: No Do you have a fever (greater than 100.4 F or 38 C)?: No Have you tested positive for COVID-19?: No Exposed to someone with COVID-19 in past 14 days?: No Do you have a sore throat?: No Do you have a cough?: No Do you have any weakness?: No Are you experiencing any nausea/vomitting?: No Do you have any diarrhea?: No Are you experiencing any unusual bleeding?: No Do you have any muscle aches/pain?: No Do you have any abdominal pain?: No Are you experiencing loss of taste or smell?: No Other Medical History Have you received the Flu Vaccine for this season: Yes Have you received the Pneumonia Vaccine: No Review of Systems Review of Systems Review of systems (narrative): Negative *Cardiovascular Comments: Negative *Gastrointestinal Comments: Negative *Genitourinary Comments: Negative *Musculoskeletal Comments: Negative *Neurologic Comments: Negative Meds Home Medications and Allergies Home Medications ?Medication ?Instructions ?Recorded ?Confirmed ?Type albuterol sulfate 90 mcg/actuation 1 inh inhalation QI D PRN shortness 10/23/24 03/05/25 Rx aerosol inhaler of breath or wheezing #8.5 g caty atorvastatin 40 mg tablet 40 mg PO DAILY Cholesterol # 90 tabs 10/23/24 02/25/25 Rx azelastine 137 mcg (0.1 %) nasal 2 spray intranasal BI D #30 mL 10/23/24 02/25/25 Rx spray carvedilol 25 mg tablet 25 mg PO DAILY 90 days #90 t abs 10/23/24 02/25/25 Rx fenofibrate 160 mg tablet 160 mg PO DAILY Cholesterol 90 10/23/24 02/25/25 Rx days #90 tabs fluticasone propionate 50 1 spray intranasal DAILY #16 grams 10/23/24 02/25/25 Rx mcg/actuation nasal spray,suspension (Flonase Allergy Relief) furosemide 40 mg tablet 40 mg PO DAILY Fluid 90 days #90 10/23/24 02/25/25 Rx tabs ipratropium 0.5 mg-albuterol 3 mg 3 ml inhalation Q6H PRN wheezing 10/23/24 02/25/25 Rx (2.5 mg base)/3 mL nebulization #180 mL soln losartan 100 mg tablet 100 mg PO DAILY heart #90 ta bs 10/23/24 02/25/25 Rx spironolactone 25 mg tablet 25 mg PO DAILY #90 tabs 02/25/25 Rx blood sugar diagnostic (True #100 ea 02/03/25 Rx Metrix Glucose Test Strip) blood-glucose meter (True Metrix #1 ea 02/03/25 Rx Air Glucose Meter) lancets 33 gauge (TRUEplus Lancets) #100 ea 02/03/25 Rx sodium,potassium,mag sulfates 17.5 See Rx Instructions PO .COMPLEX 02/20/25 Rx gram-3.13 gram-1.6 gram oral soln #354 mL (Suprep Bowel Prep Kit) hydroxychloroquine 200 mg tablet 200 mg PO BID lupus 0 02/25/25 02/25/25 History (Plaquenil) New Prescriptions to Start Prescriptions: Allergies Allergy/AdvReac Type Severity Reaction Status Date / Time Penicillins Allergy Intermediate I-HIVES Verified 03/05/25 08:57 metformin AdvReac Unknown Other Verified 03/05/25 09:06 dapagliflozin (From [facility]) AdvReac Vomiting Verified 03/05/25 08:57 NSAIDS (Non-Steroidal AdvReac Unknown Verified 03/05/25 08:57 Anti-Inflamma allergy reaction Exam Data for Last 24 hours Vital signs and Labs for Last 24 Hours: Temp Pulse Resp BP Pulse Ox O2 Del Method 97.7 F 75 16 121/71 94 L Room Air 03/05/25 08:43 03/05/25 08:43 03/05/25 08:43 03/05/25 08:43 03/05/25 08:43 03/05/25 08:43 Laboratory Results - last 24 hr 03/05/25 08:52: POC Glucose 134 H I & O for Last 24 hours: Intake & Output 03/02/25 03/03/25 03/04/25 03/05/25 23:59 23:59 23:59 23:59 Weight 308 lb *Routine HEENT Exam Head: Present normocephalic Eye: Present EOMI and PERRL ENT: Present mucous membranes moist *Routine Neck Exam Neck: Present supple *Routine Respiratory Exam Respiratory: Present CTA bilaterally *Routine Cardiovascular Exam Cardiovascular: Present RRR *Routine Abdominal Exam Abdominal: Present soft and normoactive bowel sounds; Absent tenderness *Routine Rectal Exam Rectal:: deferred *Routine Genitalia Exam Genitalia:: deferred *Routine Extremities Exam Extremities: Absent cyanosis, clubbing or edema *Routine Skin Exam Skin: Present warm; Absent rash *Routine Neurological Exam Neurological: Present alert and oriented X3 Assessment and Plan *Assessment and plan (1) Screening for colon cancer: Status: Acute Category: Medical Code(s): Z12.11 - Encounter for screening for malignant neoplasm of colon Plan A/P: 1. Screening for colon cancer is the preprocedural diagnosis. The patient will be anesthetized/sedated using MAC sedation. The patient has been seen and examined. Cardiac and lung assessment prior to the examination is stable. Proceed with planned screening colonoscopy.
--- NOTE | 2025-03-05 09:06 | EXP.ANES.CKL ---
[facility] Disclaimer: The information contained in this section may have been updated after the patient was seen, as this information can be updated by other users. Medical History Lupus Pre-op exam (HFpEF) heart failure with preserved ejection fraction SOB (shortness of breath) Dysphonia Globus sensation Testosterone deficiency Androgen deficiency Gout Chronic renal failure, stage 3 (moderate) CKD (chronic kidney disease) HLD (hyperlipidemia) HTN (hypertension) Nonischemic cardiomyopathy Kidney disease Chest pain Edema Dyspnea CHF (congestive heart failure) BEATRICE (acute kidney injury) Obstructive sleep apnea syndrome Chronic obstructive lung disease Pituitary mass Morbid obesity Diabetes mellitus Pulmonary hypertension Hypertensive heart disease Surgical History History of lymph node excision History of dental surgery History of tonsillectomy History of carpal tunnel release H/O removal of testicle Family History Grandfather Cancer Coronary artery disease Grandmother Cancer Coronary artery disease Mother Diabetes Father Heart attack Hypertension Stroke Social History (Updated 03/05/25 @ 08:44 by Celia Kenny RN) Smoking Status: Current every day smoker tobacco type: cigarettes packs per day: 1 alcohol intake: never substance use type: denies use current occupational status: other Travel in the last 8 weeks?: None household members: children and other housing: house caffeine: Yes Have you lived/traveled outside US in past 30 days?: No Contact w/someone who lives/traveled outside US past 30 days?: No Exposure to someone with infectious disease in past 14 days?: No Do you have a fever (greater than 100.4 F or 38 C)?: No Have you tested positive for COVID-19?: No Exposed to someone with COVID-19 in past 14 days?: No Do you have a sore throat?: No Do you have a cough?: No Do you have any weakness?: No Are you experiencing any nausea/vomitting?: No Do you have any diarrhea?: No Are you experiencing any unusual bleeding?: No Do you have any muscle aches/pain?: No Do you have any abdominal pain?: No Are you experiencing loss of taste or smell?: No [facility] Anesthesia Checklist Patient Identification Patient Identification: Arm Band Structural Data Admitted From: Home Planned Operative Procedure/s: Colonoscopy Consent for Planned Operative Procedure(s) Verified: Yes Verified Documents: Surgical Consent and History and Physical NPO Status Verified Time NPO: 04:30 (finished prep) Additional verifications Anesthesia Reactions: No Airway Assessment Mallampati Score:: Class II C-Spine Mobility Assessed: Yes TMJ Mobility Assessed: Yes Dentition: Good Dentition Neurological Assessment Level of Consciousness: Awake, Alert and Appropriate Anesthesia Plan Anesthesia Risk discussed: Yes Anesthesia Plan: Verified ASA Class: III Anesthesia Type: MAC
--- NOTE | 2025-03-05 09:13 | HMH.PROCNOTE ---
[facility] Procedure Note Date: 03/05/25 Time: 09:33 Procedure Note:: Colonoscopy Procedure Report: Colonoscopy with cold snare polypectomy Endoscopist: Kishore Woo II, MD Referring physician: Destin Valentin MD Date of Procedure: March 05, 2025 Equipment: Olympus [id number] adult colonoscope Sedation: MAC sedation Indication: Mr. Kwok is a 44-year-old gentleman who is here for screening colonoscopy. He reports no abdominal pain, weight loss, change in his bowel habits or rectal bleeding. He reports no family history of colon cancer. He does state that he has had 2 prior colonoscopies and his last colonoscopy was a few years ago and had 6 polyps removed (unspecified). Procedure: Prior to the procedure, a history and physical exam was performed, and patient's medications and allergies were reviewed. The risks, benefits and alternatives of the sedation and procedure were discussed with the patient. All questions were answered and informed consent was obtained. The patient was brought to the procedure room. Patient identification and proposed procedure were verified by the physician and the nurse. The patient was placed in a left lateral decubitus position and the scope was passed under direct vision. Throughout the procedure, the patient's blood pressure, pulse, and oxygen saturations were monitored continuously. The colonoscopy was accomplished without difficulty. The patient tolerated the procedure well. Findings: On digital rectal examination there was normal rectal tone. There were no external hemorrhoids. The prostate was 2+, smooth, soft, symmetric without nodules. The colonoscope was introduced through the anal canal to the rectum and advanced to the cecum. The ileocecal valve and appendiceal orifice were identified. The scope was advanced a short distance into the ileum which appeared grossly normal. The scope was then withdrawn into the colon. There were 7 colon polyps (ileocecal valve x 1 (7 mm), ascending x 1 (5 mm), transverse x 1 (6 mm), descending x 2 (3 and 4 mm), sigmoid x 1 (4 mm) and rectum x 1 (3 mm)). These were all removed via cold snare polypectomy. The remaining cecum, ascending, transverse, descending, sigmoid and rectum were grossly normal. There were no other mucosal abnormalities identified. Upon retroflexion within the rectum there were grade 1-2 internal hemorrhoids. The preparation was fair throughout with Laurier Preparation Score of 7 out of 9. The cecal time was 16 minutes. Impression: 1. Diminutive colonic polyps x 7 2. Grade 1-2 internal hemorrhoids Plan: I will follow-up the polyp histology and recommend repeat surveillance colonoscopy again in 3 to 5 years based upon the pathology.
[2025-03-05 09:37] VITALS: BP 99/52; PULSE 82; RESP 18; TEMP 36.3; O2SAT 93
[2025-03-05 09:47] VITALS: BP 109/61; PULSE 80; RESP 20; O2SAT 92
[2025-03-05 09:57] VITALS: BP 132/61; PULSE 80; O2SAT 93
[2025-03-05 10:07] VITALS: BP 138/79; PULSE 72; RESP 18; O2SAT 94
== END 2025-03-05 10:12 | disposition home or self-care (01) ==
PROVIDERS: PCP Family Medicine; Visit Provider Internal Medicine Gastroenterology
PROC: 0DJD8ZZ Inspection of Lower Intestinal Tract, Via Natural or Artificial Opening Endoscopic (ICD-10-PCS; CPT 45378; principal; 2025-03-05 09:30)
DX: Z12.11 Encounter for screening for malignant neoplasm of colon (principal); D12.2 Benign neoplasm of ascending colon; D12.3 Benign neoplasm of transverse colon; D12.8 Benign neoplasm of rectum; K64.0 First degree hemorrhoids; K64.1 Second degree hemorrhoids; I13.0 Hypertensive heart and chronic kidney disease with heart failure and stage 1 through stage 4 chronic kidney disease, or unspecified chronic kidney disease; I50.30 Unspecified diastolic (congestive) heart failure; N18.9 Chronic kidney disease, unspecified; E11.22 Type 2 diabetes mellitus with diabetic chronic kidney disease; J44.9 Chronic obstructive pulmonary disease, unspecified; E78.5 Hyperlipidemia, unspecified; E66.01 Morbid (severe) obesity due to excess calories; F17.210 Nicotine dependence, cigarettes, uncomplicated; Z88.1 Allergy status to other antibiotic agents; Z88.8 Allergy status to other drugs, medicaments and biological substances; Z88.6 Allergy status to analgesic agent; Z79.899 Other long term (current) drug therapy
CPT/HCPCS: 45385; 82962; J2003; J2704; J7120

== ENCOUNTER 2025-04-22 08:52 | Outpatient (CLI) | payer MEDICARE, MEDICAID, SELFPAY ==
--- OUTSIDE RECORDS SUMMARY | 2025-04-11 10:20 | XMS_ITS | Encounter Summary ---
Author Organization [facility] Address [address] [place] [address] Care Team Providers Care High Heel Builder Name Role Phone Destin Valentin MD Primary Care Provider Barbie vailable Reason for Referral * Consultation (Routine) - Authorized Specialty Diagnoses / Procedures Referred By Contac t Referred To Contact Diagnoses Stage 3b chronic kidney disease (CMS/HCC) Milagros Warren APRN [address] [address] Phone: tel: fax: Referral ID Status Reason Start Date Expiration Date V isits Requested Visits Authorized [id number] Authorized 04/11/2025 10/11/2026 1 1 Encounter Details Date Type Department Care Team (Late st Contact Info) Description 04/11/2025 10:20 AM EDT Office Visit [facility] [address] [place] [address] Milagros Warren APRN [address] [address] Stage 3b chronic kidney disease (CMS/HCC) (Primary Dx); Renal osteodystrophy; Proteinuria, unspecified type; Essential hypertension; Diabetes mellitus due to underlying condition with diabetic chronic kidney disease, unspecified CKD stage, unspecified whether alf insulin use (CMS/HCC); Osteoporosis, unspecified osteoporosis type, unspecified pathological fracture presence Social History Tobacco Use Types Packs/Day Years Used Date Smoking Tobacco: Every Day Cigarettes Passive Smoke Exposure: Current Smokeless Tobacco: Never Alcohol Use Standard Drinks/Week Comments No 0 (1 standard drink = 0.6 oz pur e alcohol) Sex and Gender Information Value Date Recorded Sex Assigned at Not on file Legal Sex Male 6:32 PM EDT Gender Identity Not on file Sexual Orientation Not on file documented as of this encounter Miscellaneous Notes * Progress Notes - Milagros Warren, ROUGH RICE GRADER - 04/11/2025 10:20 AM EDT SUBJECTIVE Matt Kwok is a 44 y.o. male who presents for follow-up. h/o SLE, DM2, and obesity following up for CKD and proteinuria 04/20 On treatment for prolactinoma Lost 10# since October, encouraged Right knee ACL and meniscus injury, referred to ortho and planning surgery; sent to Cardiology for preop, had EKG changes, then LHC, which did not require PCI but showed increased pressure and increased aldactone/lasix which led to increase in creatinine, subsequent lowering of aldactone back to 25mg Has not started SGLT2i, not on any DM meds 02/18 Pursuing bariatric surgery but on hold, hoping change in PCP may assist, joining [facility] group No other issues, DM doing well, tolerating medications Needs refills 08/22 Reports bariatric surgery declined as surgical candidate due to cardiac condition (follows Dr. Lyle, [facility] about one year ago, no reports available) He is open to 2nd opinion Needs vitd and diuretic renewed No change in edema Chronic dyspnea unchanged, sats typically low 90s per patient 12/2022 Since his last visit, he notes he has been feeling ok. He was started on Adipex and Phenteramine for weight loss. He has lost some weight. He denies progressive lower ext edema, worsened CP or SOA. He is at his baseline health status. 03/08/24 Since his last visit, he has been taken off phentermine and is now on Ozempic. He has lost 15lbs, He is now up to 5mg. He notes his BP has improved control at home with less than 130s. He denies any SOA, CP or increased edema. He was on Farxiga but had to stop due to N/V. 10/11/24 Unable to tolerate Ozempic due to GI distress. Denies SOA, CP, or increased edema. 04/11/25 Now taking monjouro. Has been nauseated, has been on for 2 months. Likely to have to adjust to insulin OBJECTIVE Encounter done via audio only: Speaking in full sentences, no apparent distress, answers questions appropriately LAB RESULTS 02/18 Na 138, k 4.2, bicarb 25 Creat 1.5, egfr 51 Ca 9.2 p 4.1 Alb 3.9 vitd 14 09/22 Sodium 137 potassium 4.4 urea 17 creatinine 1.6 GFR 47 calcium 8.9 phosphorus 3.9 albumin 3.8 vitamin-D less than 12 UPC 1228/95 12/13/22 Na 138, K 4.8, CO2 24, BUN 18, Creatinine 2.8, egfr 25, glucose 74, calcium 9.4, PO4 4.2, albumin 4.1 Vitamin D 26.4 Microalbumin ratio 223, pr/cr ratio 4.2 Labs drawn 01/2025, results reviewed with patient. 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 doing well, on losartan and spironolactone; lasix 40mg PRN, continue titration parameters Obesity. Continue weight loss measures. working on diet, exercise, moving forward Renal osteodystrophy. low vitd level- improved s/p ergocalciferol Osteoporosis based on stress fracture, BMD only showed spine -1.1 which may be false based on OA, no hip scores, no new fractures, hold changes in therapy Dm2. - unknown A1c, BS at home ~140s Discussed reintroduction of SGL2 in near future, but will wait for now, as patient reluctant. Bicarb stable. Bp with improved control.Follow up in 6 months. Telehealth Statement Patient Verification Patient identity has been confirmed using name and date of ? Yes Authorizations and Agreements/Telemedicine Consent sent and consent confirmed? Yes Patient Location: Home/Other Patient confirms they are physically located in [place]? Yes If the patient is not physically located in [place], the provider has confirmed with [facility] thatthe provider is authorized to provide services in patient's stated location? N/A Provider Location: [facility] facility Audio and video or audio only? audio Total visit time: 22 minutes documented in this encounter Plan of Treatment Upcoming Encounters Date Type Department Care Team (Late st Contact Info) Description 08/22/2025 9:40 AM EST Office Visit [facility] [address] [place] [address] Milagros Warren APRN [address] [address] Scheduled Orders Name Type Priority Associated Diagnoses Orde r Schedule CBC W/O Differential Lab Routine Stage 3b chronic kidney disease (CMS/HCC) Expected: 04/11/2025 (Approximate), Expires: 10/09/2026 Urinalysis with reflex microscopic (Culture NOT Included) Lab Routine Stage 3b chronic kidney disease (CMS/HCC) Expected: 04/11/2025 (Approximate), Expires: 10/09/2026 PTH Intact Total Lab Routine Stage 3b chronic kidney disease (CMS/HCC) Expected: 04/11/2025 (Approximate), Expires: 10/09/2026 Renal Function Panel, Plasma Lab Routine Stage 3b chronic kidney disease (CMS/HCC) Expected: 04/11/2025 (Approximate), Expires: 10/09/2026 Protein, Random, Urine with Creatinine Lab Routine Stage 3b chronic kidney disease (CMS/HCC) Expected: 04/11/2025 (Approximate), Expires: 10/09/2026 Scheduled Referrals Name Type Priority Associated Diagnoses Order Schedule Follow Up Nephrology Outpatient Referral Routine Stage 3b chronic kidney disease (CMS/HCC) Expected: 08/11/2025 (Approximate), Expires: 05/11/2026 documented as of this encounter Visit Diagnoses Diagnosis Stage 3b chronic kidney disease (CMS/HCC)- Primary Renal osteodystrophy Proteinuria, unspecified type Essential hypertension Unspecified essential hypertension Diabetes mellitus due to underlying condition with diabetic chronic kidney disease, unspecified CKD stage, unspecified whether rodent exterminator insulin use Osteoporosis, unspecified osteoporosis type, unspecified pathological fracture presence documented in this encounter Additional Health Concerns Assessment Noted Time A fall risk assessment has been complete d for the patient 08/31/2022 9:26 AM EST A Body Mass Index follow-up plan has been documented for the patient 04/11/2025 11:05 AM EDT documented as of this encounter Care Teams High Heel Builder Relationship Specialty Start Date End Date Destin Valentin MD PCP - General Family Medicine 09/05/22 marcy palmer Endocrinology 07/04/22 documented as of this encounter
[2025-04-22 20:47] LABS: Hematocrit 39.1 % (42.0-52.0); Hemoglobin 12.6 g/dL (14.1-18.0); Immature Granulocytes % 0.9 %; Mean Corpuscular HGB Conc 32.2 g/dL (31.8-35.4); Mean Corpuscular Hemoglobin 31.5 pg (27.0-31.2); Mean Corpuscular Volume 97.8 fl (80-94); Nucleated Red Blood Cells % 0 %; Platelet Count 298 K/mm3 (142-424); Red Blood Count 4.00 M/mm3 (4.60-6.20); Red Cell Distribution Width-SD 53.1 fL; White Blood Count 8.9 K/mm3 (4.8-10.8)
[2025-04-22 21:11] LABS: Albumin Level 4.5 g/dl (3.5-5.0); Chloride 105 mmol/L (98-107); Potassium 5.1 mmoL/L (3.5-5.1); Sodium 139 mmol/L (136-145)
[2025-04-22 21:14] LABS: Alanine Aminotransferase 24 U/L (12-78); Albumin/Globulin Ratio 1.9 (1.1-1.8); Alkaline Phosphatase 57 U/L (38-126); Anion Gap 18.1 mEq/L (5-15); Aspartate Amino Transferase 31 U/L (17-59); Bilirubin,Total 0.6 mg/dl (0.2-1.3); Blood Urea Nitrogen 22 mg/dl (9-20); Carbon Dioxide 21 mmol/L (22.0-30.0); Cholesterol 115 mg/dl (140-200); Creatinine,Serum 2.10 mg/dl (0.66-1.25); Estimated Glomerular Filt Rate 34 ml/min (>60); GFR (African American) 42 ML/MIN (>60); Globulin 2.4 g/dL (1.3-3.2); Total Protein,Serum 6.9 g/dl (6.3-8.2); Triglycerides 355 mg/dl (30-150)
[2025-04-22 21:15] LABS: Calcium 9.1 mg/dl (8.4-10.2); Glucose 113 mg/dl (74-100); HDL Cholesterol 22 mg/dl (40-60)
[2025-04-22 22:39] LABS: Hemoglobin A1C 6.4 % (4.0-6.0)
--- OUTSIDE RECORDS SUMMARY | 2025-04-23 09:18 | XMS_ITS | Encounter Summary ---
Author Organization [facility] ([place], [place], [place], [place]) Address [address] [place] [address] Care Team Providers Care Engraver Flatware Name Role Phone Unavailable Primary Care Provider Unavailabl e Encounter Details Date Type Department Care Team (Late st Contact Info) Description 12/13/2018 Transcribed Document [facility] Family Medicine [address] [place] [address] ProviderKaylie MD [facility] [place] [address] Social History Tobacco Use Types Packs/Day Years [...] 12/13/2018 13:28 EDT Electronically signed by [facility] Conversion Mysql Developer Cerner at 11/16/2022 7:40 AM CDT documented in this encounter Plan of Treatment Not on file documented as of this encounter Visit Diagnoses Not on filedocumented in this encounter
--- OUTSIDE RECORDS SUMMARY | 2025-04-23 09:18 | XMS_ITS | Encounter Summary ---
Author Organization [employer] ([place], [place], [place], [place]) Address [address] [place] [address] Care Team Providers Care Class A Lineman Name Role Phone Unavailable Primary Care Provider Unavailabl e Encounter Details Date Type Department Care Team (Late st Contact Info) Description 12/13/2018 Transcribed Document [facility] [place] Family Medicine [facility] [place] [address] ProviderKaylie MD [facility] [place] [address] Social History Tobacco Use Types [...] 03/20/2015 Document Revised: 12/22/2016 Document Reviewed: 02/03/2015 [employer] Interactive Patient Education ? 2019 [employer]. Steps to Quit Smoking Smoking tobacco [...] 05/13/2010 Document Revised: 03/14/2017 Document Reviewed: 12/01/2015 [employer] Interactive Patient Education ? 2019 [employer]. Moderate Conscious Sedation, Adult, Care After [...] you are awake and alert. ??? Take oljz-adx-ggranmm and prescription medicines only as told by [...] 05/07/2014 Document Revised: 12/19/2016 Document Reviewed: 11/05/2016 [employer] Interactive Patient Education ? 2019 [employer]. Heart-Healthy Eating Plan Heart-healthy meal planning [...] foods can I eat? Grains Breads, including Italian, white, trena, wheat, raisin, rye, oatmeal, and Albanian. Tortillas that are neither fried nor made with lard or trans fat. Low-fat rolls, including hotdog and hamburger buns and Greenlandic muffins. Biscuits. Muffins. Waffles. Pancakes. Light popcorn. [...] cooking, baking, salads, and as spreads. Other [place] powder. Coffee and tea. All seasonings and [...] cottage cheese. Whole-milk cheeses, including blue (jimbo), [place] Juvencio, Brie, Frankie, Kuwaiti, Havarti, [place]inean, cheddar, Camembert, and Pioche. Whole or 2% milk that is liquid, [...] that has suet, meat fat, or shortening. [place] butter, hydrogenated oils, palm oil, coconut oil, [...] 01/15/2013 Document Revised: 12/22/2016 Document Reviewed: 01/08/2015 [employer] Interactive Patient Education ? 2019 [employer]. Radiology Venogram A venogram, or venography, is [...] including vitamins, herbs, eye drops, creams, and tipz-vvr-rmrudhp medicines. ??? Any problems you or family [...] 06/10/2017 Elsevier Interactive Patient Education ? 2019 [employer] documented in this encounter Plan of Treatment Not on file documented as of this encounter Visit Diagnoses Not on filedocumented in this encounter
--- OUTSIDE RECORDS SUMMARY | 2025-04-23 09:18 | XMS_ITS | Encounter Summary ---
Author Organization [employer] ([place], [place], [place], [place]) Address [address] [place] [address] Care Team Providers Care Linen Folder Name Role Phone Unavailable Primary Care Provider Unavailabl e Encounter Details Date Type Department Care Team (Late st Contact Info) Description 12/13/2018 Transcribed Document [facility] [place] [facility] Family Medicine [address] [place] [address] [place]Kaylie [place] [address] Social History Tobacco Use Types Packs/Day Years [...]
--- OUTSIDE RECORDS SUMMARY | 2025-04-23 09:18 | XMS_ITS | Encounter Summary ---
Author Organization [employer] ([place], [place], [place], [place]) Address [address] [place] [address] Care Team Providers Care Multiple Effect Evaporator Operator Name Role Phone Unavailable Primary Care Provider Unavailabl e Encounter Details Date Type Department Care Team (Late st Contact Info) Description 12/13/2018 Transcribed Document [facility] [place] [facility] Family Medicine [facility] [place] [address] ProviderKaylie MD [address] [place] [address] Social History Tobacco Use Types Packs/Day [...] Wheelchair Legal Guardian : Spouse Support Person/Patient Staff Reporter : No Support Person/Pt Rep Name : esau Support Person/Pt Rep Contact Information : [phone] Want Family/Rep/Phys Notified of Admit : No Emergency Contact #1 : rani Emergency Contact #1 Emergency Contact #1 Relationship : Emergency Contact #2 : na Emergency Contact #2 Phone Number : na Emergency Contact #2 Relationship : na Chief Complaint : lle edema/pain Information Obtained From : Patient Primary Language : Ivorian Preferred Communication Mode : Verbal Communication Barrier : None CHRISS ONTIVEROS - 12/13/2018 8:29 EDT Height and Weight, Clinical Dosing Height Source : Stated Height Entry Format : [place] Height, Feet : 5 ft(Converted to: 152 cm, 60 Inch) Height, Inches : 7 Inch(Converted to: 0 ft 7 Inch, 17.78 cm) Clinical Height : 170.18 cm Weight Source : Standing scale Weight Entry Format : [place] Clinical Dosing Weight : 138.64 kg Weight, Pounds : 305 lb Body Surface Area (BSA) : 2.42 m2 Body Mass Index : 47.9 kg/m2 (>HHI) [place] Body Weight : 65 kg CHRISS ONTIVEROS [...] Scale Risk Level : 25-45 Medium Risk [place] Fall Interventions : Adequate lighting, Assistive devices [...]
--- OUTSIDE RECORDS SUMMARY | 2025-04-23 09:18 | XMS_ITS | Clinical Summary ---
Author Organization [facility] Address [address] [place] [address] Care Team Providers Care Leaf Binner Name Role Phone Destin Valentin MD Primary Care Provider Barbie vailable Allergies Active Allergy Reactions Criticality Noted Date Comments Dapagliflozin Vomiting 12/10/2024 Metformin Other - please docum ent in the comment field Low 12/10/2024 Nsaids Other - please docum ent in the comment field Low 06/02/2022 Penicillins Hives,Unknown - Selina ent states they do not know rxn details Medium 10/16/2012 Medications Aspirin 81 MG capsule aspirin Active Syringe/Needle, Disp, (B-D 3CC LUER-CARISA SYR 46UQ6-4/2) 18G X 1-1/2 3 ML misc BD [...] Take one tablet twice daily 60 tablet 022 Active losartan (Cozaar) 100 MG tablet Take 1 tablet (100 mg total) by mouth 1 (one) time each day. 30 tablet 022 Active spironolactone (Aldactone) 25 MG tablet Take one tablet daily 30 tablet 022 Active cabergoline (Dostinex) 0.5 MG tabletIndications [...] EACH WEEK 024 Active ergocalciferol 1.25 MG (48716 UT) capsuleIndication s:Renal osteodystrophy Take 1 capsule [...] 12/04/2014 Hypogonadism, male 11/03/2014 Pituitary mass 11/03/2014 Encounters Date Type Department Care Team Description 04/11/2025 10:20 AM EDT [facility] [address] [place] [address] Milagros Warren APRN Stage 3b chronic kidney disease (CMS/HCC) (Primary Dx); Renal osteodystrophy; Proteinuria, unspecified type; Essential hypertension; Diabetes mellitus due to underlying condition with diabetic chronic kidney disease, unspecified CKD stage, unspecified whether chcf insulin use ([facility]); Osteoporosis, unspecified osteoporosis type, unspecified pathological fracture presence from Last 3 Months Immunizations Immunization Administration Dates Next Due Influenza, injectable, quadrivalent, preservativ e free 04/26/2016 Influenza, seasonal, injectable 07/31/2016,04/26 RSVP Law COVID-19 Vaccine (Purple Cap) 12 + 04/15/2021,03/04/2021 [...] Description 08/22/2025 9:40 AM EST [facility] [address] [place] [address] Milagros Warren, LPN [employer] [address] [facility] [address] [place] [address] Health Maintenance Due Date Last Done Comments [facility]-Bone Density Scan 1979 [facility]-Depression Screening 1979 [facility]-HIV Screening 1979 [facility]-Medicare Annual Wellness (AWV) 1979 [facility]-/Child/Adol SDOH Screenings 1979 Diabetes: Dental Exam 1989 [facility]- SDOH Screenings 1997 [facility]-Adult SDOH Screenings 1997 [facility]-Hepatitis B Vaccines (1 of 3 - 19+ 3-dose series) 1998 HPV Vaccines (1 - 3-dose SCDM series) 2006 [facility]-Diabetes: Hemoglobin A1C 07/20/2015 01/20/2015 [facility]-Pneumococcal Vaccine: Pediatrics (0 to 5 Years) and At-Risk Patients (6 to 49 Years) (2 of 2 - PPSV23, PCV20, or PCV21) 09/25/2016 07/19/2018, 07/31/2016, 12/18/2014 CT Colonography 2024 Colonoscopy 2024 FIT-DNA 2024 FIT 2024 FOBT 2024 Sigmoidoscopy 2024 [facility]-Colorectal Cancer Screening 2024 OPT-AUNMZ-80 Vaccine (3 - season) 2025 04/15/2021, 03/04/2021 [facility]-Influenza Vaccine (#1) 03/31/202507/31, 04/26/2016, 04/26/2016 [facility]-Zoster Vaccines (1 of 2) 2029 [facility]-DTaP,Tdap,and Td Vaccines (2 - Td or Tdap) 02/15/2030 02/16/2020 [facility]-Hepatitis C Screening Completed 01/20/2019 [facility]-Obesity Intervention Completed 025, 10/11/2024, 03/08/2024, Additional history exists [facility]-HIB Vaccines Aged Out [...] Recently Relevant to Health Maintenance Results * [place] Hepatitis C Antibody (01/20/2019 9:40 PM EDT) Mark Hepatitis C Ab NEGATIVE Reference Range: Negative [facility] 01/20/2019 9:40 PM EDT 01/20/2019 9:45 PM [...] 5:13 PM EDT 01/20/2015 5:55 PM EDT us Historical Provider LAB BLOOD ORDERABLES Final R esult SUNQUEST from Last 3 Months or Most Recently Relevant to Health Maintenance Insurance [facility] MED[facility] Care Teams Leaf Binner Relationship Specialty Start Date End Date Destin Valentin MD PCP - General Family Medicine 09/05/22 marcy palmer Endocrinology 07/04/22
--- OUTSIDE RECORDS SUMMARY | 2025-04-23 09:18 | XMS_ITS | Referral Summary ---
Author Organization [employer] ([place], [place], [place], [place]) Address [address] [place] [address] Care Team Providers Care I O Psychologist Name Role Phone Unavailable Primary Care Provider [...]
--- OUTSIDE RECORDS SUMMARY | 2025-04-23 09:18 | XMS_ITS | Clinical Summary ---
Author Organization [employer] ([place], [place], [place], [place]) Address [address] [place] [address] Care Team Providers Care Antenna Rigger Name Role Phone Unavailable Primary Care Provider [...]
--- OUTSIDE RECORDS SUMMARY | 2025-04-23 09:18 | XMS_ITS | Encounter Summary ---
Author Organization [employer] ([place], [place], [place], [place]) Address [address] [place] [address] Care Team Providers Care Web Development Intern Name Role Phone Unavailable Primary Care Provider Unavailabl e Encounter Details Date Type Department Care Team (Late st Contact Info) Description 12/13/2018 Transcribed Document [facility] Radiology [address] [place] [address] Jesse Sánchez MD [address] [facility] [place] [id number] Social History Tobacco Use Types Packs/Day Years [...] DESCRIPTION: Patient was taken back to the orthodontic laboratory technician, placed in supine position. Following a time-out, bilateral groins were widely prepped and draped in standard sterile fashion. He was sedated with 2 mg of Versed and 50 mcg of fentanyl. Under ultrasound evaluation, the left greater saphenous vein was assessed. This was patent. Imaging was documented within the chart. It was accessed successfully with a micropuncture needle. A 9-Fijian sheath was placed. A pelvic venogram was [...]
--- OUTSIDE RECORDS SUMMARY | 2025-04-23 09:18 | XMS_ITS | Encounter Summary ---
Author Organization [employer] ([place], [place], [place], [place]) Address [address] [place] [address] Care Team Providers Care Sash Sticker Name Role Phone Unavailable Primary Care Provider Unavailabl e Encounter Details Date Type Department Care Team (Late st Contact Info) Description 12/13/2018 Transcribed Document [facility] [place] Family Medicine [facility] [place] [address] ProviderKaylie MD [address] [place] [address] Social History Tobacco Use Types Packs/Day Years Used Date Smoking Tobacco: Never Assessed Sex and Gender Information Value Date Recorded Sex Assigned at Not on file Legal Sex Male 4:50 PM CDT Gender Identity Not on file Sexual Orientation Not on file documented as of this encounter Miscellaneous Notes * Cerner Conversion Note - Kaylie ProviderMD - 12/13/2018 12:05 PM CDT [place] [id number] LEORAMATT AMARO :1980 Visit Time:12/13/2018 Your Visit [...] Comments January 01 at 2pm Where: [address] [phone] [phone] Medications What How Much When Instructions Next Dose aspirin (aspirin 81 mg oral tablet) 1 Tablet(s) Oral Every Day 12/14/2018 carvedilol (carvedilol 12.5 mg oral tablet) 1 Tablet(s) Oral Two Times A Day 12/14/2018 fenofibrate (fenofibrate 160 mg oral tablet) 1 Tablet(s) Oral Every Day 12/14/2018 fluticasone nasal (fluticasone 50 mcg/ inh nasal spray) 1 [place](s) Nasal Two Times A Day 12/14/2018 gabapentin [...] 03/20/2015 Document Revised: 12/22/2016 Document Reviewed: 02/03/2015 [employer] Interactive Patient Education ?? 2019 [employer]. Steps to Quit Smoking Smoking tobacco [...] 05/13/2010 Document Revised: 03/14/2017 Document Reviewed: 12/01/2015 [employer] Interactive Patient Education ?? 2019 [employer]. Moderate Conscious Sedation, Adult, Care After [...] you are awake and alert. ??? Take nslo-zeg-znsqbev and prescription medicines only as told by [...] 05/07/2014 Document Revised: 12/19/2016 Document Reviewed: 11/05/2016 [employer] Interactive Patient Education ?? 2019 [employer]. Heart-Healthy Eating Plan Heart-healthy meal planning includes: [...] foods can I eat? Grains Breads, including [place]raltarian, white, trena, wheat, raisin, rye, oatmeal, and Spanish. Tortillas that are neither fried nor made with lard or trans fat. Low-fat rolls, including hotdog and hamburger buns and Pakistani muffins. Biscuits. Muffins. Waffles. Pancakes. Light popcorn. Whole-grain cereals. Flatbread. [place] toast. Pretzels. Breadsticks. Rusks. Low-fat snacks. Low-fat crackers, including oyster, saltine, matzo, refugio, animal, and rye. Rice and pasta, including brown rice and pastas that are made with whole wheat. Vegetables All vegetables. Fruits All fruits, but limit coconut. Meats and Other Protein Sources Lean, well-trimmed beef, veal, pork, and pedor. Chicken and turkey without skin. All fish [...] cooking, baking, salads, and as spreads. Other [place] powder. Coffee and tea. All seasonings and [...] cottage cheese. Whole-milk cheeses, including blue (jimbo), [place] Juvencio, Brie, Frankie, Peruvian, Havarti, Welsh, cheddar, Camembert, and [place]. Whole or 2% milk that is liquid, [...] that has suet, meat fat, or shortening. [place] butter, hydrogenated oils, palm oil, coconut oil, [...] 01/15/2013 Document Revised: 12/22/2016 Document Reviewed: 01/08/2015 [employer] Interactive Patient Education ?? 2019 [employer]. Venogram A venogram, or venography, is a [...] including vitamins, herbs, eye drops, creams, and flcf-jmr-vyjxaxq medicines. ??? Any problems you or family [...] 07/05/2010 Document Revised: 06/10/2017 Document Reviewed: 06/10/2017 [employer] Interactive Patient Education ?? 2019 [employer]. Emergency Awareness and Preventative Care STROKE is [...] Assistance with quitting is available by contacting 8-131-UKHX-NOW. This is a free resource providing counseling, [...] Be sure to sign up for the [facility] patient portal, which gives you 20/02 access to your medical information ??? including these discharge instructions ??? using your computer, smartphone, or tablet. Just go to [employer] to get started. Questions? Call . Test Results Laboratory or Other Results This Visit (last charted value for your 12/13/2018 visit) Hematology 12/13/18 08:16:00 Platelet Count: 262 K/uL -- Normal range between ( 163 and 369 ) Patient Name:MATT DEVRIES I have received and understand this information and was given the opportunity to ask questions. Patient/Wood Finisher Name: Patient/Wood Finisher Signature: Relationship to Patient: Clinician/Hospital Wood Finisher Signature: Date: documented in this encounter Plan of Treatment Not on file documented as of this encounter Visit Diagnoses Not on filedocumented in this encounter
== END 2025-04-22 23:59 | disposition home or self-care (01) ==
LOC: LAB.DROPOF 04-23 09:08
PROVIDERS: PCP Family Medicine; Visit Provider Family Medicine
DX: J44.1 Chronic obstructive pulmonary disease with (acute) exacerbation (principal); E23.6 Other disorders of pituitary gland; E03.9 Hypothyroidism, unspecified; I13.10 Hypertensive heart and chronic kidney disease without heart failure, with stage 1 through stage 4 chronic kidney disease, or unspecified chronic kidney disease; N18.9 Chronic kidney disease, unspecified; E11.9 Type 2 diabetes mellitus without complications
CPT/HCPCS: 80053; 80061; 83036; 83970; 85025; 87086

== ENCOUNTER 2025-06-11 08:55 | Outpatient (CLI) | payer MEDICARE, MEDICAID, SELFPAY ==
--- NOTE | 2025-06-11 08:56 | XR_ITS ---
FINAL REPORT CLINICAL HISTORY: Right Knee Pain COMPARISON: 06/02/2022 FINDINGS: 3 views of the right knee were obtained. There is no acute fracture or dislocation. There is a moderate joint effusion. Mild degenerative changes are slightly worse since the prior exam. Soft tissues are unremarkable. IMPRESSION: Progressed degenerative changes without acute bony abnormality. Reviewed, Interpreted and Dictated by Elena Charles MD Transcribed by Melly Clinton Authenticated and [facility]
--- OUTSIDE RECORDS SUMMARY | 2025-06-11 09:00 | XMS_ITS | Encounter Summary ---
Author Organization [email or web address] ([place], [place], [place], [place], [place]) Address [address] [place] [address] Care Team Providers Care Datapower Consultant Name Role Phone Unavailable Primary Care Provider Unavailabl e Encounter Details Date Type Department Care Team (Late st Contact Info) Description 12/13/2018 Transcribed Document [facility] Radiology [address] [place] [address] Jesse Sánchez MD [address] [facility] [place] [id number] Social History Tobacco Use Types Packs/Day Years [...] DESCRIPTION: Patient was taken back to the laborer carpentry dock, placed in supine position. Following a time-out, bilateral groins were widely prepped and draped in standard sterile fashion. He was sedated with 2 mg of Versed and 50 mcg of fentanyl. Under ultrasound evaluation, the left greater saphenous vein was assessed. This was patent. Imaging was documented within the chart. It was accessed successfully with a micropuncture needle. A 9-D[place] sheath was placed. A pelvic venogram was [...]
--- OUTSIDE RECORDS SUMMARY | 2025-06-11 09:00 | XMS_ITS | Encounter Summary ---
Author Organization [employer] ([place], [place], [place], [place], [place]) Address [address] [place] [address] Care Team Providers Care Straightener And Aligner Name Role Phone Unavailable Primary Care Provider Unavailabl e Encounter Details Date Type Department Care Team (Late st Contact Info) Description 12/13/2018 Transcribed Document [facility] [place] Family Medicine [address] [place] [address] ProviderKaylie MD [facility] [place] [address] Social History Tobacco Use Types [...] Wheelchair Legal Guardian : Spouse Support Person/Patient Product Development Manager : No Support Person/Pt Rep Name : esau Support Person/Pt Rep Contact Information : [phone] Want Family/Rep/Phys Notified of Admit : No Emergency Contact #1 : rani Emergency Contact #1 Emergency Contact #1 Relationship : Emergency Contact #2 : na Emergency Contact #2 Phone Number : na Emergency Contact #2 Relationship : na Chief Complaint : lle edema/pain Information Obtained From : Patient Primary Language : Fijian Preferred Communication Mode : Verbal Communication Barrier : None CHRISS ONTIVEROS - 12/13/2018 8:29 EDT Height and Weight, Clinical Dosing Height Source : Stated Height Entry Format : [place] Height, Feet : 5 ft(Converted to: 152 cm, 60 Inch) Height, Inches : 7 Inch(Converted to: 0 ft 7 Inch, 17.78 cm) Clinical Height : 170.18 cm Weight Source : Standing scale Weight Entry Format : [place] Clinical Dosing Weight : 138.64 kg Weight, Pounds : 305 lb Body Surface Area (BSA) : 2.42 m2 Body Mass Index : 47.9 kg/m2 (>HHI) [place] Body Weight : 65 kg CHRISS ONTIVEROS 12/13/2018 8:29 EDT Health Histories Smoking Status [...] Scale Risk Level : 25-45 Medium Risk [place] Fall Interventions : Adequate lighting, Assistive devices within reach, Bed in low position, Call device within reach, Fall prevention handout/education per facility policy, Frequent orientation to call device, Frequent orientation to surroundings, Hourly comfort/safety rounds, Non-slip footwear, Personal items within reach, Reinforced to call for assistance before getting out of bed, Room free of clutter/spills, Wheels locked, Wires/Cords secured [facility] 12/13/2018 8:29 EDT Pain Assessment Pain Assessment : Initial assessment Pain Scale Used : 0-10 Scale Location : Back CHRISS ONTIVEROS 12/13/2018 8:29 EDT Pain Scale Intensity : 3 [facility] 12/13/2018 8:29 EDT Image 4 - Images [...] Immunization, Current Season : Yes CHRISS ONTIVEROS Jayda 12/13/2018 8:29 EDT Pneumococcal Vaccine Previous Vaccines [...]
--- OUTSIDE RECORDS SUMMARY | 2025-06-11 09:00 | XMS_ITS | Referral Summary ---
Author Organization [employer] ([place], [place], [place], [place], [place]) Address [address] [place] [address] Care Team Providers Care Gang Sawyer Name Role Phone Unavailable Primary Care Provider [...]
--- OUTSIDE RECORDS SUMMARY | 2025-06-11 09:00 | XMS_ITS | Encounter Summary ---
Author Organization [employer] ([place], [place], [place], [place], [place]) Address [address] [place] [address] Care Team Providers Care Brim Pouncer Name Role Phone Unavailable Primary Care Provider Unavailabl e Encounter Details Date Type Department Care Team (Late st Contact Info) Description 12/13/2018 Transcribed Document [facility] [place] [address] [place] [address] ProviderKaylie MD [address] [place] [address] Social History Tobacco Use Types Packs/Day Years Used Date Smoking Tobacco: Never Assessed Sex and Gender Information Value Date Recorded Sex Assigned at Not on file Legal Sex Male 4:50 PM CDT Gender Identity Not on file Sexual Orientation Not on file documented as of this encounter Miscellaneous Notes * Cerner Conversion Note - Kaylie Freeman MD - 12/13/2018 12:05 PM CDT [place] [id number] KAYCEMATT :1980 Visit Time:12/13/2018 Your Visit Summary Your Care Team Admitting Physician - CE SÁNCHEZ MD-SUR Attending Physician - CE SÁNCHEZ MD-SUR Primary Care Physician - LEONARDA MARCOS (REF), YASH Referring Physician - CE SÁNCHEZ MD-SUR Your [...] Comments January 01 at 2pm Where: [address] [facility] [place] [phone] Medications What How Much When Instructions Next Dose aspirin (aspirin 81 mg oral tablet) 1 Tablet(s) Oral Every Day 12/14/2018 carvedilol (carvedilol 12.5 mg oral tablet) 1 Tablet(s) Oral Two Times A Day 12/14/2018 fenofibrate (fenofibrate 160 mg oral tablet) 1 Tablet(s) Oral Every Day 12/14/2018 fluticasone nasal (fluticasone 50 mcg/ inh nasal spray) 1 Castana(s) Nasal Two Times A Day 12/14/2018 gabapentin [...] 03/20/2015 Document Revised: 12/22/2016 Document Reviewed: 02/03/2015 [employer] Interactive Patient Education ?? 2019 [employer]. Steps to Quit Smoking Smoking tobacco [...] 05/13/2010 Document Revised: 03/14/2017 Document Reviewed: 12/01/2015 [employer] Interactive Patient Education ?? 2019 [employer]. Moderate Conscious Sedation, Adult, Care After [...] you are awake and alert. ??? Take elgx-oev-iolcrhh and prescription medicines only as told by [...] 05/07/2014 Document Revised: 12/19/2016 Document Reviewed: 11/05/2016 [employer] Interactive Patient Education ?? 2019 [employer]. Heart-Healthy Eating Plan Heart-healthy meal planning includes: [...] foods can I eat? Grains Breads, including Icelandic, white, trena, wheat, raisin, rye, oatmeal, and Kiswahili. Tortillas that are neither fried nor made with lard or trans fat. Low-fat rolls, including hotdog and hamburger buns and Japanese muffins. Biscuits. Muffins. Waffles. Pancakes. Light popcorn. [...] cooking, baking, salads, and as spreads. Other [place] powder. Coffee and tea. All seasonings and [...] cottage cheese. Whole-milk cheeses, including blue (jimbo), [place]comb Juvencio, Brie, Frankie, Mauritian, Havarti, Romanian, cheddar, Camembert, and [place]. Whole or 2% milk that is liquid, [...] that has suet, meat fat, or shortening. [place] butter, hydrogenated oils, palm oil, coconut oil, [...] 01/15/2013 Document Revised: 12/22/2016 Document Reviewed: 01/08/2015 [employer] Interactive Patient Education ?? 2019 [employer]. Venogram A venogram, or venography, is a [...] including vitamins, herbs, eye drops, creams, and qzhd-nmx-swkhvsl medicines. ??? Any problems you or family [...] 07/05/2010 Document Revised: 06/10/2017 Document Reviewed: 06/10/2017 [employer] Interactive Patient Education ?? 2019 [employer]. Emergency Awareness and Preventative Care STROKE is [...] Assistance with quitting is available by contacting 9-830-RLAD-NOW. This is a free resource providing counseling, [...] Be sure to sign up for the [facility] patient portal, which gives you 20/02 access to your medical information ??? including these discharge instructions ??? using your computer, smartphone, or tablet. Just go to [employer] to get started. Questions? Call . Test Results Laboratory or Other Results This Visit (last charted value for your 12/13/2018 visit) Hematology 12/13/18 08:16:00 Platelet Count: 262 K/uL -- Normal range between ( 163 and 369 ) Patient Name:MATT DEVRIES I have received and understand this information and was given the opportunity to ask questions. Patient/Box Coverer Hand Name: Patient/Box Coverer Hand Signature: Relationship to Patient: Clinician/Hospital Box Coverer Hand Signature: Date: documented in this encounter Plan of Treatment Not on file documented as of this encounter Visit Diagnoses Not on filedocumented in this encounter
--- OUTSIDE RECORDS SUMMARY | 2025-06-11 09:00 | XMS_ITS | Clinical Summary ---
Author Organization [employer] ([place], [place], [place], [place], [place]) Address [address] [place] [address] Care Team Providers Care Record Librarian Name Role Phone Unavailable Primary Care Provider [...]
--- OUTSIDE RECORDS SUMMARY | 2025-06-11 09:00 | XMS_ITS | Encounter Summary ---
Author Organization [employer] ([place], [place], [place], [place], [place]) Address [address] [place] [address] Care Team Providers Care Meat Grading Machine Operator Name Role Phone Unavailable Primary Care Provider Unavailabl e Encounter Details Date Type Department Care Team (Late st Contact Info) Description 12/13/2018 Transcribed Document [facility] [place] Medicine [address] [place] [address] ProviderKaylie MD On [place] [address] Social History Tobacco Use Types Packs/Day Years Used Date Smoking Tobacco: Never Assessed Sex and Gender Information Value Date Recorded Sex Assigned at Not on file Legal Sex Male 4:50 PM CDT Gender Identity Not on file Sexual Orientation Not on file documented as of this encounter Miscellaneous Notes * Cerner Conversion Note - Kaylie ProviderMD - 12/13/2018 1:28 PM CDT Nursing [...] unlabored/even/a+ox4 CHRISS ONTIVEROS - 12/13/2018 13:28 EDT documented in this encounter Plan of Treatment Not on file documented as of this encounter Visit Diagnoses Not on filedocumented in this encounter
--- OUTSIDE RECORDS SUMMARY | 2025-06-11 09:00 | XMS_ITS | Clinical Summary ---
Author Organization Healthcare Address [address] [place] [address] Care Team Providers Care Speeder Frame Tender Name Role Phone Destin Valentin MD Primary [...] Active Syringe/Needle, Disp, (B-D 3CC LUER-CARISA SYR 92KE1-3/2) 18G X 1-1/2 3 ML misc BD [...] EACH WEEK 024 Active ergocalciferol 1.25 MG (39774 UT) capsuleIndication s:Renal osteodystrophy Take 1 capsule (50,000 Units) by mouth 1 (one) time per week. 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 Hypogonadism, male 11/03/2014 Pituitary mass 11/03/2014 Encounters Date Type Department Care Team Description 04/11/2025 10:20 AM EDT Office Visit [facility] [address] [place] [phone] Milagros Warren APRN Stage 3b chronic kidney disease (CMS/HCC) (Primary Dx); Renal osteodystrophy; Proteinuria, unspecified type; Essential hypertension; Diabetes mellitus due to underlying condition with diabetic chronic kidney disease, unspecified CKD stage, unspecified whether custodial insulin use ([facility]); Osteoporosis, unspecified osteoporosis type, unspecified pathological fracture presence from Last 3 Months Immunizations Immunization Administration Dates Next Due Influenza, injectable, quadrivalent, preservativ e free 04/26/2016 Influenza, seasonal, injectable 07/31/2016,04/26 Prosensa COVID-19 Vaccine (Purple Cap) 12 + 04/15/2021,03/04/2021 [...] Description 08/22/2025 9:40 AM EST Office Visit [facility] [address] [place] [phone] Milagros Warren, SUNGLASS CLIP ATTACHER [address] [facility] [address] [place] [address] Health Maintenance Due Date Last Done Comments [facility]-Bone Density Scan 1980 [facility]-Depression Screening 1980 [facility]-HIV Screening 1980 [facility]-Medicare Annual Wellness (AWV) 1980 [facility]-Infant/Child/Adol SDOH Screenings 1980 Diabetes: Dental Exam 1989 [...] 2024 Sigmoidoscopy 2024 [facility]-Colorectal Cancer Screening 2024 UIA-IANAR-60 Vaccine (3 - season) 2025 04/15/2021, 03/04/2021 [...] Recently Relevant to Health Maintenance Results * [place] Hepatitis C Antibody (01/20/2019 9:40 PM EDT) Mark Hepatitis C Ab NEGATIVE Reference Range: Negative [facility] 01/20/2019 9:40 PM EDT 01/20/2019 9:45 PM [...] Most Recently Relevant to Health Maintenance Insurance [facility] Care Teams Speeder Frame Tender Relationship Specialty Start Date End Date Destin Valentin MD PCP - General Family Medicine 09/05/22 marcy palmer Endocrinology 07/04/22
--- OUTSIDE RECORDS SUMMARY | 2025-06-11 09:01 | XMS_ITS | Encounter Summary ---
Author Organization [employer] ([place], [place], [place], [place], [place]) Address [address] [place] [address] Care Team Providers Care Spectacle Truer Name Role Phone Unavailable Primary Care Provider Unavailabl e Encounter Details Date Type Department Care Team (Late st Contact Info) Description 12/13/2018 Transcribed Document [facility] [place] Family Medicine [address] [place] [address] ProviderKaylie MD [address] [place] [address] Social History Tobacco Use Types [...] 03/20/2015 Document Revised: 12/22/2016 Document Reviewed: 02/03/2015 [employer] Interactive Patient Education ? 2019 [employer]. Steps to Quit Smoking Smoking tobacco [...] 05/13/2010 Document Revised: 03/14/2017 Document Reviewed: 12/01/2015 [employer] Interactive Patient Education ? 2019 [employer]. Moderate Conscious Sedation, Adult, Care After [...] you are awake and alert. ??? Take qbhv-fxt-wzmkiyl and prescription medicines only as told by [...] 05/07/2014 Document Revised: 12/19/2016 Document Reviewed: 11/05/2016 [employer] Interactive Patient Education ? 2019 [employer]. Heart-Healthy Eating Plan Heart-healthy meal planning [...] foods can I eat? Grains Breads, including Yemeni, white, trena, wheat, raisin, rye, oatmeal, and Maltese. Tortillas that are neither fried nor made with lard or trans fat. Low-fat rolls, including hotdog and hamburger buns and Polish muffins. Biscuits. Muffins. Waffles. Pancakes. Light popcorn. [...] cooking, baking, salads, and as spreads. Other [place] powder. Coffee and tea. All seasonings and [...] cottage cheese. Whole-milk cheeses, including blue (jimbo), [place] Juvencio, Brie, Frankie, Liberian, Havarti, Cayman Islander, cheddar, Camembert, and [place]. Whole or 2% milk that is liquid, [...] that has suet, meat fat, or shortening. [place] butter, hydrogenated oils, palm oil, coconut oil, [...] 01/15/2013 Document Revised: 12/22/2016 Document Reviewed: 01/08/2015 [employer] Interactive Patient Education ? 2019 [employer]. Radiology Venogram A venogram, or venography, is [...] including vitamins, herbs, eye drops, creams, and ehrc-mjg-xhfqjpu medicines. ??? Any problems you or family [...] 07/05/2010 Document Revised: 06/10/2017 Document Reviewed: 06/10/2017 [employer] Interactive Patient Education ? 2019 [employer] documented in this encounter Plan of Treatment Not on file documented as of this encounter Visit Diagnoses Not on filedocumented in this encounter
--- OUTSIDE RECORDS SUMMARY | 2025-06-11 09:01 | XMS_ITS | Encounter Summary ---
Author Organization [employer] ([place], [place], [place], [place], [place]) Address [address] [place] [address] Care Team Providers Care Executive Vice President And Chief Operating Officer Name Role Phone Unavailable Primary Care Provider Unavailabl e Encounter Details Date Type Department Care Team (Late st Contact Info) Description 12/13/2018 Transcribed Document [facility] [place] [address] [place] [address] ProviderKaylie MD [address] [place] [address] Social History Tobacco Use Types [...]
== END 2025-06-11 23:59 | disposition home or self-care (01) ==
LOC: RAD 08:56
PROVIDERS: PCP Family Medicine; Visit Provider Physician Assistant
DX: M17.11 Unilateral primary osteoarthritis, right knee (principal)
CPT/HCPCS: 73562

== ENCOUNTER 2025-07-08 07:02 | Outpatient (CLI) | payer MEDICARE, MEDICAID, SELFPAY ==
--- NOTE | 2025-07-08 | CA_ITS ---
APPROVED REPORT Exam: Pharmacologic Technologist: Chayito Andujar Stress Nurse: Ana ZEE, RN Ht: 5 ft 8 in Wt: 314 lbs BSA: 2.48 m2 HR: 66 bpm BP: 111/75 mmHg Indications: Chest pain, Dyspnea Stress Test Details Test: Lexiscan HR Resting HR: 66 bpm Max Heart Rate (APMHR): 174.843887 bpm Max HR Achieved: 122 bpm Target HR (85% APMHR): 147.253566 bpm % of APMHR: 70.11 Recovery HR: 73 bpm BP Resting BP: 111.0/75.0 mmHg Max BP: 124.0/54.0 mmHg Recovery BP: 109.0/67.0 mmHg ECG Resting ECG: Sinus rhythm Stress ECG Conclusion Lungs clear to auscultation prior to test start. Symptoms: Dyspnea Arrhythmias/Ectopy: PAC ST-T Changes: Less than 0.[address] segment changes. Electronically signed by : Jacqueline Perez MD 07/14/2025 13:20:17
--- OUTSIDE RECORDS SUMMARY | 2025-07-08 07:07 | XMS_ITS | Clinical Summary ---
Author Organization [employer] ([place], [place], [place], [place], [place]) Address [address] [place] [address] Care Team Providers Care Soldering Machine Tender Name Role Phone Unavailable Primary Care Provider [...]
--- OUTSIDE RECORDS SUMMARY | 2025-07-08 07:07 | XMS_ITS | Encounter Summary ---
Author Organization [employer] ([place], [place], [place], [place], [place]) Address [address] [place] [address] Care Team Providers Care Checker Name Role Phone Unavailable Primary Care Provider Unavailabl e Encounter Details Date Type Department Care Team (Late st Contact Info) Description 12/13/2018 Transcribed Document [facility] [place] [address] [place] [address] ProviderKaylie MD [facility] [place] [address] Social History Tobacco Use Types [...]
--- OUTSIDE RECORDS SUMMARY | 2025-07-08 07:07 | XMS_ITS | Encounter Summary ---
Author Organization [employer] ([place], [place], [place], [place], [place]) Address [address] [place] [address] Care Team Providers Care Overhead Door Technician Name Role Phone Unavailable Primary Care Provider Unavailabl e Encounter Details Date Type Department Care Team (Late st Contact Info) Description 12/13/2018 Transcribed Document [facility] [place] [address] [place] [address] ProviderKaylie MD [address] [place] [address] Social History Tobacco Use Types [...]
--- OUTSIDE RECORDS SUMMARY | 2025-07-08 07:07 | XMS_ITS | Data Portability ---
Author Organization [facility] MADELIN Riavs LUCAS CLOSED Address [address] [facility] [address] [place] [address] Care Team Providers Care Supervisor Slashing Department Name Role Phone LEONARDA MARCOS Primary Care Provider Assessment No assessment recorded. Plan of Treatment Reminders Order Date Submit Date Provider Last Modified By Organization Details Last Modified Time Details Appointments None recorded. Lab urinalysis panel, auto [address] [facility], [address] [place], [place] [address], [address] [place] [address], [phone], 1 13:58:32 testosteron e, free + total, serum [address] [facility], [address] [place] [address], [phone], 1 13:58:32 urinalysis, dipstick, auto [address] [facility], [address] [facility], [address], [address], 0 14:24:26 testosteron e, free + total, serum 2019 020 [email or web address] [facility], [address] [place] [address], [address], 0 17:09:00 Referral None recorded. Procedures None recorded. Surgeries None recorded. Imaging None recorded. Medication Orders tadalafil 5 mg tablet 2020 021 [facility], [address] [place], [address], 16:04:42 Depo-Testos terone 200 mg/mL intramuscul ar oil 2020 021 Not available 08:10:55 Patient TargetsNo targets recorded. Patient Instructions Encounter Date Encounter Id Patient Instructions Last Modified By Organization Details Last Modified Time 12/09/2019 [id number] hypogonadism: care instructions [email or web address] Not available 12/09/2019 14:24:26 08/05/2020 [id number] learning about healthy weight [email or web address] Not available 08/07/2020 20:40:30 hypogonadism: care instructions [email or web address] Not available 08/07/2020 20:40:30 Reason for Referral None Reported. Results Created Date Observation Date Name Description Value Unit Range Abnormal Flag Note LastModifiedBy Organization Detail LastModifiedTime 11/28/1911/27/2020 urina lysis panel , auto Unknown Analyte Clean Catch Not Available [facility] [address], [address], 11/27/2020 15:44:32 11/28/19 21 11/27/2020 urina lysis panel , auto Unknown Analyte Yellow Not Available [facility] [address], [address], 11/27/2020 15:44:32 11/28/19 21 11/27/2020 urina lysis panel , auto Unknown Analyte Clear Not Available [facility] [address], [address], 11/27/2020 15:44:32 11/28/19 21 11/27/2020 urina lysis panel , auto Unknown Analyte 1.010 Not Available [facility] [address], [place], [address], 11/27/2020 15:44:32 11/28/19 21 11/27/2020 urina lysis panel , auto Unknown Analyte 1.003- 1.035 Not Available [facility] [address], [place], [address], 11/27/2020 15:44:32 11/28/19 21 11/27/2020 urina lysis panel , auto Unknown Analyte 6.0 Not Available [facility] [address], [place], [address], 11/27/2020 15:44:32 11/28/19 21 11/27/2020 urina lysis panel , auto Unknown Analyte 5.0-8. 0 Not Available [facility] [address], [address], 11/27/2020 15:44:32 11/28/19 21 11/27/2020 urina lysis panel , auto Unknown Analyte Negati ve Not Available [facility] [address], [address], 11/27/2020 15:44:32 11/28/19 21 11/27/2020 urina lysis panel , auto Unknown Analyte Negati ve Not Available [facility] [address], [place], [address], 11/27/2020 15:44:32 11/28/19 21 11/27/2020 urina lysis panel , auto Unknown Analyte Negati ve Not Available [facility] [address], [place], [address], 11/27/2020 15:44:32 11/28/19 21 11/27/2020 urina lysis panel , auto Unknown Analyte Negati ve Not Available [facility] [address], [place], [address], 11/27/2020 15:44:32 11/28/19 21 11/27/2020 urina lysis panel , auto Unknown Analyte 500 mg/dl (+++) Not Available [facility] [address], [place], [address], 11/27/2020 15:44:32 11/28/19 21 11/27/2020 urina lysis panel , auto Unknown Analyte Negati ve Not Available [facility] [address], [place], [address], 11/27/2020 15:44:32 11/28/19 21 11/27/2020 urina lysis panel , auto Unknown Analyte Normal Not Available [facility] [address], [place], [address], 11/27/2020 15:44:32 11/28/19 21 11/27/2020 urina lysis panel , auto Unknown Analyte Normal Not Available [facility] [address], [place], [address], 11/27/2020 15:44:32 11/28/19 21 11/27/2020 urina lysis panel , auto Unknown Analyte Negati ve Not Available [facility] [address], [place], [address], 11/27/2020 15:44:32 11/28/19 21 11/27/2020 urina lysis panel , auto Unknown Analyte Negati ve Not Available [facility] [address], [place], [address], 11/27/2020 15:44:32 11/28/19 21 11/27/2020 urina lysis panel , auto Unknown Analyte Normal Not Available [facility] [address], [place], [address], 11/27/2020 15:44:32 11/28/19 21 11/27/2020 urina lysis panel , auto Unknown Analyte Normal 1 mg/dl Not Available [facility] [address], [place], [address], 11/27/2020 15:44:32 11/28/19 21 11/27/2020 urina lysis panel , auto Unknown Analyte Negati ve Not Available [facility] [address], [place], [address], 11/27/2020 15:44:32 11/28/19 21 11/27/2020 urina lysis panel , auto Unknown Analyte Negati ve Not Available [facility] [address], [place], [address], 11/27/2020 15:44:32 11/28/19 21 11/27/2020 urina lysis panel , auto Unknown Analyte 50 Dylan/ul Not Available [facility] [address], [place], [address], 11/27/2020 15:44:32 11/28/19 21 11/27/2020 urina lysis panel , auto Unknown Analyte Negati ve Not Available [facility] [address], [place], [address], 11/27/2020 15:44:32 12/09/19 20 12/09/2019 urina lysis , dipst ick, auto Unknown Analyte Yellow Not Available [facility] [address], [place], [address], 12/09/2019 13:29:48 12/09/19 20 12/09/2019 urina lysis , dipst ick, auto Unknown Analyte Clear Not Available [facility] [address], [place], [address], 12/09/2019 13:29:48 12/09/19 20 12/09/2019 urina lysis , dipst ick, auto Unknown Analyte 1.010 Not Available [facility] [address], [place], [address], 12/09/2019 13:29:48 12/09/19 20 12/09/2019 urina lysis , dipst ick, auto Unknown Analyte 1.003 - 1.035 Not Available [facility] [address], [place], [address], 12/09/2019 13:29:48 12/09/19 20 12/09/2019 urina lysis , dipst ick, auto Unknown Analyte 7.0 Not Available [facility] [address], [place], [address], 12/09/2019 13:29:48 12/09/19 20 12/09/2019 urina lysis , dipst ick, auto Unknown Analyte 5.0 - 8.0 Not Available [facility] [address], [place], [address], 12/09/2019 13:29:48 12/09/19 20 12/09/2019 urina lysis , dipst ick, auto Unknown Analyte Negati ve Not Available [facility] [address], [place], [address], 12/09/2019 13:29:48 12/09/19 20 12/09/2019 urina lysis , dipst ick, auto Unknown Analyte Negati ve Not Available [facility] [address], [place], [address], 12/09/2019 13:29:48 12/09/19 20 12/09/2019 urina lysis , dipst ick, auto Unknown Analyte Negati ve Not Available [facility] [address], [place], [address], 12/09/2019 13:29:48 12/09/19 20 12/09/2019 urina lysis , dipst ick, auto Unknown Analyte Negati ve Not Available [facility] [address], [place], [address], 12/09/2019 13:29:48 12/09/19 20 12/09/2019 urina lysis , dipst ick, auto Unknown Analyte 500 mg/dl (+++) Not Available [facility] [address], [place], [address], 12/09/2019 13:29:48 12/09/19 20 12/09/2019 urina lysis , dipst ick, auto Unknown Analyte Negati ve - Trace Not Available [facility] [address], [place], [address], 12/09/2019 13:29:48 12/09/19 20 12/09/2019 urina lysis , dipst ick, auto Unknown Analyte Normal Not Available [facility] [address], [place], [address], 12/09/2019 13:29:48 12/09/19 20 12/09/2019 urina lysis , dipst ick, auto Unknown Analyte Normal Not Available [facility] [address], [place], [address], 12/09/2019 13:29:48 12/09/19 20 12/09/2019 urina lysis , dipst ick, auto Unknown Analyte Negati ve Not Available [facility] [address], [place], [address], 12/09/2019 13:29:48 12/09/19 20 12/09/2019 urina lysis , dipst ick, auto Unknown Analyte Negati ve Not Available [facility] [address], [place], [address], 12/09/2019 13:29:48 12/09/19 20 12/09/2019 urina lysis , dipst ick, auto Unknown Analyte Normal Not Available [facility] [address], [place], [address], 12/09/2019 13:29:48 12/09/19 20 12/09/2019 urina lysis , dipst ick, auto Unknown Analyte Normal - 1mg/dl Not Available [facility] [address], [place], [address], 12/09/2019 13:29:48 12/09/1912/09/2019 urina lysis , dipst ick, auto Unknown Analyte Negati ve Not Available [facility] [address], [address], 12/09/2019 13:29:48 12/09/1912/09/2019 urina lysis , dipst ick, auto Unknown Analyte Negati ve Not Available [facility] [address], [place], [address], 12/09/2019 13:29:48 12/09/19 20 12/09/2019 urina lysis , dipst ick, auto Unknown Analyte 50 Dylan/ul Not Available [facility] [address], [place], [address], 12/09/2019 13:29:48 12/09/1912/09/2019 urina lysis , dipst ick, auto Unknown Analyte Negati ve Not Available [facility] [address], [place], [address], 12/09/2019 13:29:48 12/09/19 20 12/09/2019 urina lysis , dipst ick, auto Unknown Analyte Clean Catch Not Available [facility] [address], [place], [address], 12/09/2019 13:29:48 12/09/19 20 12/09/2019 urina lysis , dipst ick, auto Unknown Analyte Automa saturnino Not Available [facility] [address], [place], [address], 12/09/2019 13:29:48 12/09/19 20 12/10/2019 testo stero ne, free + total , serum testosterone , total 267.5 NG/dL 249.0- 836.0 normal Refer ence range is for age 20 to 49 years . Not Available [facility] [address] [place] [address], [address], 12/12/2019 20:48:52 12/09/19 20 12/12/2019 testo stero [...] RMED AT: [facility] [address] [place] [address] Jonnathan RODRIGUEZ,PHD Not Available [facility] [address] [place] [address], [address], 12/12/2019 20:48:52 11/28/19 21 11/27/2020 testo stero ne, free + total , serum testosterone , total 85 NG/dL 249-83 6 low Refer ence range is for age 20-49 years . Not Available [facility] [address] [place], [address], 12/01/2020 17:50:44 11/28/19 21 12/01/2020 testo stero ne, free + total , serum testosterone , free 13.1 pg/mL 46.0-2 24.0 low This test was devel oped and its vicente tical perfo rmanc e cynthia cteri stics have been deter mined by [employer]. It has not been clear ed or appro turner by the FDA. This assay has been valid ated pursu ant to the CLIA regul ation s and is used for clini bubba purpo ses. TEST PERFO RMED AT: [employer] [facility] [address] [place] [address] Jonnathan MERRITT Not Available [facility] [address] [place], [address], 12/01/2020 17:50:44 Result Notes None recorded. Medical Equipment None Reported. Allergies Allergen ID Allergen Name Allergen Category Reaction Reaction Severity Criticality Documentation Date Start Date Code Code System Note Provider Name and Address Organization Details Recorded Time 465839 Product containin g penicilli n (product) medicatio n Not available Not available Not available 06/24/20162012 64085 8001 SNOMED Comme nt: Creat ed By: John garciaCr eated Date: 2012 11:14 :35 AM; Not Available [facility] 09:47:10 Medications Name Sig Start Date [...] Updated DateTime 08/05/2020 167.64 cm 51.5 kg/m2 132855.97 g Corina Banda [facility] 08/05/2020 16:11:05 Date Recorded Body height Body mass index (BMI) Body weight Provider Name and Address Organization Details Last Updated DateTime 11/27/2020 167.64 cm 51.5 kg/m2 641820.97 g Kervin Smith [facility] 11/27/2020 15:42:21 Date Recorded Body height Body mass index (BMI) Body weight Provider Name and Address Organization Details Last Updated DateTime 12/09/2019 167.64 cm 51.5 kg/m2 258160.97 chasidy Banda [facility] 12/09/2019 13:23:58 Social History Question Answer Notes LastModified by Organizat ion Details LastModified Time Tobacco Smoking Status Current Every Day Smoker Corina Banda [facility] 12/09/2019 13:25:24 How Much Tobacco Do You Chew? None [email or web address] Information not available 12/09/2019 Marital Status [email or web address] Informatio n not available 12/09/2019 Sex: Unknown Functional Status Question Answer Note LastModified by Organization D etails LastModified Time What is your level of alcohol consumption? None [email or web address] Information not available 12/09/2019 Mental Status None recorded. Family History Nothing Reported. Medical History Condition Response Diabetes Y Allergies/Hayfever Y Arthritis Y Kidney Stones Y Chronic Obstructive Pulmonary Disease Y Depression Y Asthma Y Sleep Apnea Y High Cholesterol Y Anesthesia Complications Y Liver Disease Y Hypertension Y Kidney Disease Y Past Encounters Encounter ID Performer Location Encounter Start Date Encounter Closed Date Diagnosis/Indication Diagnosis SNOMED-CT Code Diagnosis ICD10 Code Diagnosis IMO Codes Diagnosis Note [id number] MD AARON SAXENA [facility] [address] [address] 12/09/2019 13:05:29 12/09/2019 14:23:16 Male hypogonadism 24129535 E29.1 follow up 6 months he was given refills medication [id number] MD A[facility]ON [facility] [address] [address] 08/05/2020 14:36:05 08/05/2020 16:51:21 Male hypogonadism 02418854 E29.1 follow up 6 months he was given refills medication [id number] MD AAORN [facility] [address] [place] [address] 11/27/2020 15:22:25 11/27/2020 16:12:45 Testicular hypofunction 090359556 E29.1 Male hypogonadism 207589 06 E29.1 follow up 6 months he was given refills medication Primary er ectile dysfunction 702303934 N52.9 Health Concerns Section Related Observation LastModified by Organization Detai ls LastModified Time None Recorded Concern Status LastModified by Organization Details LastModified Time None Recorded Advance Directives Directive None Recorded Payers Insurance Date Sequence Insurance Name Policy Number Policy Maradiaga Covered Member ID Maradiaga Member ID Guarantor Name 09/29/2021 2 [place] [employer] [place] FFS/TRADITIO NAL Matt Casianodarlene [id number] Matt Sundar 09/29/2021 1 [place] Matt Tineo Stepheniejumanatari [id number] Matt Sundar 09/29/2021 1 [place] Matt Guotari [id number] Matt Casianodarlene Notes Date Note Type Note Provider Name and Address Organization Details Recorded Time 12/09/2019 text/html patient is here for routine follow-up regarding hypogonadism. He typically is followed at [facility]. For several years he has been on Depo testosterone 300 mg every other week. He has blood drawn lastly but unfortunately they did not call a testosterone level has ordered. We will obtain a serum sample today for total and free testosterone he feels well otherwise. He is followed for a pituitary pathology. He is also followed by nephrology at [facility]. ERNESTO LYNN MD [address] [place], [address], [facility] 12/09/2019 16:46:47 08/05/2020 text/html Patient is here in follow-up of hypogonadism. He also has a pituitary tumor which is monitored by endocrinology. He's been on Depo testosterone for several years. He receives 1.5 mL (300mg) every other week. He continues to feel well. His levels on therapy earlier this year were acceptable. He requests a refill of therapy. ERNESTO LYNN MD [address] [place], [address], [facility] 08/07/2020 20:41:12 11/27/2020 text/html patient is a [...] dose tadalafil. ERNESTO LYNN MD [address] [place], [address], [facility] 11/27/2020 16:03:13
--- OUTSIDE RECORDS SUMMARY | 2025-07-08 07:07 | XMS_ITS | Clinical Summary ---
Author Organization Healthcare Address [address] [place] [address] Care Team Providers Care Slurry Blender Name Role Phone Destin Valentin MD Primary [...] Active Syringe/Needle, Disp, (B-D 3CC LUER-CARISA SYR 75YN0-3/2) 18G X 1-1/2 3 ML misc BD [...] EACH WEEK 024 Active ergocalciferol 1.25 MG (14160 UT) capsuleIndication s:Renal osteodystrophy Take 1 capsule [...] Description 04/11/2025 10:20 AM EDT Office Visit [facility] [address] [place] [address] Milagros Warren APRN Stage 3b chronic kidney disease (CMS/HCC) (Primary Dx); Renal osteodystrophy; Proteinuria, unspecified type; Essential hypertension; Diabetes mellitus due to underlying condition with diabetic chronic kidney disease, unspecified CKD stage, unspecified whether retirement insulin use (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 [address] [facility] [address] [place] [address] Health Maintenance Due Date Last [...] 2024 Sigmoidoscopy 2024 [facility]-Colorectal Cancer Screening 2024 [id number] Vaccine ( - season) 2025 04/15/2021, 03/04/2021 [facility]-Influenza Vaccine (#1) 03/31/202507/31, 04/26/2016, 04/26/2016 [facility]-Zoster Vaccines (1 of 2) 2029 [facility]-DTaP,Tdap,and Td Vaccines (2 - Td or Tdap) 02/15/2030 02/16/2020 [facility]-Hepatitis C Screening Completed 01/20/2019 [facility]-Obesity Intervention Completed 025, 10/11/2024, 03/08/2024, Additional history exists HPV Vaccines Aged Out No longer eligi ble based on patient's age to complete this topic [facility]-HIB Vaccines Aged Out No longer e [...] Recently Relevant to Health Maintenance Results * [place] Hepatitis C Antibody (01/20/2019 9:40 PM EDT) Pathologist [facility] Hepatitis C Ab NEGATIVE Reference Range: [...] Most Recently Relevant to Health Maintenance Insurance [facility] MEDICARE Care Teams Slurry Blender Relationship Specialty Start Date End Date Destin Valentin MD PCP - General Family Medicine 09/05/22 marcy palmer Endocrinology 07/04/22
--- OUTSIDE RECORDS SUMMARY | 2025-07-08 07:07 | XMS_ITS | Encounter Summary ---
Author Organization [employer] ([place], [place], [place], [place], [place]) Address [address] [place] [address] Care Team Providers Care Rhinologist Name Role Phone Unavailable Primary Care Provider Unavailabl e Encounter Details Date Type Department Care Team (Late st Contact Info) Description 12/13/2018 Transcribed Document [facility] [place] Family Medicine [address] [place] [address] ProviderKaylie MD [address] [place] [address] Social History Tobacco Use Types [...] Freeman MD - 12/13/2018 12:05 PM CDT [place] [id number] JACK DEVRIESDAVID Tineo :1980 Visit Time:12/13/2018 Your Visit Summary Your [...] Comments January 01 at 2pm Where: [address] [facility] [place] [phone] Medications What How Much When Instructions Next Dose aspirin (aspirin 81 mg oral tablet) 1 Tablet(s) Oral Every Day 12/14/2018 carvedilol (carvedilol 12.5 mg oral tablet) 1 Tablet(s) Oral Two Times A Day 12/14/2018 fenofibrate (fenofibrate 160 mg oral tablet) 1 Tablet(s) Oral Every Day 12/14/2018 fluticasone nasal (fluticasone 50 mcg/ inh nasal spray) 1 [place](s) Nasal Two Times A Day 12/14/2018 gabapentin [...] 03/20/2015 Document Revised: 12/22/2016 Document Reviewed: 02/03/2015 SellABand Interactive Patient Education ?? 2019 SellABand Inc. Steps to Quit Smoking Smoking tobacco [...] 05/13/2010 Document Revised: 03/14/2017 Document Reviewed: 12/01/2015 SellABand Interactive Patient Education ?? 2019 Sell[employer]and Inc. Moderate Conscious Sedation, Adult, Care After [...] you are awake and alert. ??? Take rhgy-yvd-wjmfsbj and prescription medicines only as told by [...] 05/07/2014 Document Revised: 12/19/2016 Document Reviewed: 11/05/2016 SellABand Interactive Patient Education ?? 2019 Spin Transfer Technologies. Heart-Healthy Eating Plan Heart-healthy meal planning includes: [...] foods can I eat? Grains Breads, including Jamaican, white, trena, wheat, raisin, rye, oatmeal, and South Korean. Tortillas that are neither fried nor made with lard or trans fat. Low-fat rolls, including hotdog and hamburger buns and Ghanaian muffins. Biscuits. Muffins. Waffles. Pancakes. Light popcorn. Whole-grain cereals. Flatbread. [place] toast. Pretzels. Breadsticks. Rusks. Low-fat snacks. Low-fat [...] cooking, baking, salads, and as spreads. Other [place] powder. Coffee and tea. All seasonings and [...] cottage cheese. Whole-milk cheeses, including blue (jimbo), Marcell Juvencio, Brie, Frankie, Burundian, Havarti, Montserratian, cheddar, Camembert, and [place]. Whole or 2% milk that is liquid, [...] that has suet, meat fat, or shortening. [place] butter, hydrogenated oils, palm oil, coconut oil, [...] 01/15/2013 Document Revised: 12/22/2016 Document Reviewed: 01/08/2015 SellABand Interactive Patient Education ?? 2019 [employer]. Venogram A venogram, or venography, is a [...] including vitamins, herbs, eye drops, creams, and ydji-fwq-cfpbqek medicines. ??? Any problems you or family [...] 07/05/2010 Document Revised: 06/10/2017 Document Reviewed: 06/10/2017 SellABand Interactive Patient Education ?? 2019 [employer]. Emergency Awareness and Preventative Care STROKE is [...] Assistance with quitting is available by contacting 0-326-VVLL-NOW. This is a free resource providing counseling, [...] Be sure to sign up for the [facility] patient portal, which gives you 20/02 access to your medical information ??? including these discharge instructions ??? using your computer, smartphone, or tablet. Just go to Doculogy to get started. Questions? Call . Test Results Laboratory or Other Results This Visit (last charted value for your 12/13/2018 visit) Hematology 12/13/18 08:16:00 Platelet Count: 262 K/uL -- Normal range between ( 163 and 369 ) Patient Name:MATT DEVRIES I have received and understand this information and was given the opportunity to ask questions. Patient/Obiee Consultant Name: Patient/Obiee Consultant Signature: Relationship to Patient: Clinician/Hospital Obiee Consultant Signature: Date: Electronically signed by Liliana, Huseyin Conversion Junior Marketing Associate Cerner at 11/16/2022 8:08 AM CDT documented in this encounter Plan of Treatment Not on file documented as of this encounter Visit Diagnoses Not on filedocumented in this encounter
--- OUTSIDE RECORDS SUMMARY | 2025-07-08 07:07 | XMS_ITS | Encounter Summary ---
Author Organization [employer] ([place], [place], [place], [place], [place]) Address [address] [place] [address] Care Team Providers Care Gill Tender Name Role Phone Unavailable Primary Care Provider Unavailabl e Encounter Details Date Type Department Care Team (Late st Contact Info) Description 12/13/2018 Transcribed Document [facility] [place] Family Medicine [address] [place] [address] ProviderKaylie MD [address] [place] [address] Social History Tobacco Use Types [...] 03/20/2015 Document Revised: 12/22/2016 Document Reviewed: 02/03/2015 Go World! Interactive Patient Education ? 2019 Go World! Inc. Steps to Quit Smoking Smoking tobacco [...] 05/13/2010 Document Revised: 03/14/2017 Document Reviewed: 12/01/2015 [employer] World! Interactive Patient Education ? 2019 [employer] World! Inc. Moderate Conscious Sedation, Adult, Care After [...] you are awake and alert. ??? Take fruu-kyi-srvnict and prescription medicines only as told by [...] 05/07/2014 Document Revised: 12/19/2016 Document Reviewed: 11/05/2016 [employer] World! Interactive Patient Education ? 2019 [employer] World! Inc. Heart-Healthy Eating Plan Heart-healthy meal planning [...] foods can I eat? Grains Breads, including Georgian, white, trena, wheat, raisin, rye, oatmeal, and [place]. Tortillas that are neither fried nor made with lard or trans fat. Low-fat rolls, including hotdog and hamburger buns and Sammarinese muffins. Biscuits. Muffins. Waffles. Pancakes. Light popcorn. [...] cooking, baking, salads, and as spreads. Other [place] powder. Coffee and tea. All seasonings and [...] cottage cheese. Whole-milk cheeses, including blue (jimbo), [place] Juvencio, Brie, Frankie, Senegalese, Havarti, American, cheddar, Camembert, and [place]. Whole or 2% milk that is liquid, [...] that has suet, meat fat, or shortening. [place] butter, hydrogenated oils, palm oil, coconut oil, [...] 01/15/2013 Document Revised: 12/22/2016 Document Reviewed: 01/08/2015 Go World! Interactive Patient Education ? 2019 Integral Vision. Radiology Venogram A venogram, or venography, is [...] including vitamins, herbs, eye drops, creams, and lhbo-xtk-nfwkusa medicines. ??? Any problems you or family [...] 07/05/2010 Document Revised: 06/10/2017 Document Reviewed: 06/10/2017 ElseDevHD Interactive Patient Education ? 2019 Go World! Inc. documented in this encounter Plan of Treatment Not on file documented as of this encounter Visit Diagnoses Not on filedocumented in this encounter
--- OUTSIDE RECORDS SUMMARY | 2025-07-08 07:07 | XMS_ITS ---
Laboratory report Created on: July 01, 2025 LICO DEVRIES : 1980 Sex: Male Author Organization Unknown PROBLEMS Problems List Code Description RESULTS Laboratory Orders Date Order Code Test 2024-10-08 [id number] ALBUMIN/CREATINI NE RATIO,URINE Laboratory Results Date LOINC Test Value Unit Reference Range Interpre tation 2024-10-08 [id number] CREATININE, URINE 179.2 MG/DL 2024-10-08 [id number] ALBUMIN, URINE 1796.1 UG/ML 2024-10-08 [id number] ALB/CREAT RATIO 1002 MG/G CREAT 0-29 H
--- OUTSIDE RECORDS SUMMARY | 2025-07-08 07:07 | XMS_ITS | Encounter Summary ---
Author Organization [employer] ([place], [place], [place], [place], [place]) Address [address] [place] [address] Care Team Providers Care Director Product Development Name Role Phone Unavailable Primary Care Provider Unavailabl e Encounter Details Date Type Department Care Team (Late st Contact Info) Description 12/13/2018 Transcribed Document [facility] Radiology [address] [place] [address] Jesse Sánchez MD [address] [facility] [address] [place] [id number] Social History Tobacco Use Types Packs/Day Years [...] DESCRIPTION: Patient was taken back to the rangelands conservation laborer, placed in supine position. Following a time-out, bilateral groins were widely prepped and draped in standard sterile fashion. He was sedated with 2 mg of Versed and 50 mcg of fentanyl. Under ultrasound evaluation, the left greater saphenous vein was assessed. This was patent. Imaging was documented within the chart. It was accessed successfully with a micropuncture needle. A 9-Khmer sheath was placed. A pelvic venogram was [...]
--- OUTSIDE RECORDS SUMMARY | 2025-07-08 07:07 | XMS_ITS | Encounter Summary ---
Author Organization [employer] ([place], [place], [place], [place], [place]) Address [address] [place] [address] Care Team Providers Care Basket Weaver Name Role Phone Unavailable Primary Care Provider Unavailabl e Encounter Details Date Type Department Care Team (Late st Contact Info) Description 12/13/2018 Transcribed Document [facility] Family Medicine [address] [place] [address] ProviderKaylie MD [facility] [place] [address] Social History Tobacco Use Types [...] Wheelchair Legal Guardian : Spouse Support Person/Patient Faculty I On Call Medical Assistant : No Support Person/Pt Rep Name : esau Support Person/Pt Rep Contact Information : [phone] Want Family/Rep/Phys Notified of Admit : No Emergency Contact #1 : rani Emergency Contact #1 Emergency Contact #1 Relationship : Emergency Contact #2 : na Emergency Contact #2 Phone Number : na Emergency Contact #2 Relationship : na Chief Complaint : lle edema/pain Information Obtained From : Patient Primary Language : Swedish Preferred Communication Mode : Verbal Communication Barrier : None CHRISS ONTIVEROS - 12/13/2018 8:29 EDT Height and Weight, Clinical Dosing Height Source : Stated Height Entry Format : [place] Height, Feet : 5 ft(Converted to: 152 cm, 60 Inch) Height, Inches : 7 Inch(Converted to: 0 ft 7 Inch, 17.78 cm) Clinical Height : 170.18 cm Weight Source : Standing scale Weight Entry Format : [place] Clinical Dosing Weight : 138.64 kg Weight, Pounds : 305 lb Body Surface Area (BSA) : 2.42 m2 Body Mass Index : 47.9 kg/m2 (>HHI) [place] Body Weight : 65 kg CHRISS ONTIVEROS [...] Scale Risk Level : 25-45 Medium Risk [place] Fall Interventions : Adequate lighting, Assistive devices [...] With family CHRISS ONTIVEROS 12/13/2018 8:29 EDT Electronically signed by Tona Ford Conversion Business Continuity Management Director Cerner at 11/16/2022 8:01 AM CDT documented in this encounter Plan of Treatment Not on file documented as of this encounter Visit Diagnoses Not on filedocumented in this encounter
--- OUTSIDE RECORDS SUMMARY | 2025-07-08 07:07 | XMS_ITS | Referral Summary ---
Author Organization [employer] ([place], [place], [place], [place], [place]) Address [address] [place] [address] Care Team Providers Care Liner Worker Name Role Phone Unavailable Primary Care Provider [...]
--- NOTE | 2025-07-08 07:30 | NM_ITS ---
APPROVED REPORT Exam: Nuclear Stress Test Indication: SOB, HTN, DM, High cholesterol, Tobacco use, Family history, CHF Patient Location: Outpatient Stress Tech: Chayito Andujar [place] Tech:Naomi Best, ARRT, RT (R)(N) Ht: 5 ft 7 in Wt: 315 lbs HR: 67 bpm BP: 111/75 mmHg BSA: 2.45 m2 TID: 1.19 BMI: 49.3 History: SOB, HTN, DM, High cholesterol, Tobacco use, Family history, CHF Procedure: Patient received 0.4 mg of intravenous Lexiscan, resting heart rate 67 bpm, resting blood pressure 111/75 mmHg, with Lexiscan maximum heart rate achieved was 122 bpm which is % of the maximum predicted heart rate and blood pressure was 124/64 mmHg. With Lexiscan, patient denied any complaint of chest pain. Cardiac Stress and Resting SPECT Images: Cardiac Stress and Resting SPECT images were obtained using technetium 99m Myoview 32.5 mCi stress and 10.15 mCi at rest. Resting and stress imaging in supine and prone positions demonstrate no evidence of fixed or reversible perfusion defects. Gated imaging demonstrates normal global LV systolic function. LVEF is calculated at 62%. Conclusion: No evidence of fixed or reversible perfusion defects. Gated imaging demonstrates normal global LV systolic function. LVEF is calculated at 62%. Electronically signed by : Jacqueline Perez MD 07/14/2025 13:03:42
[2025-07-08] MEDS: ISOTOPE MYOVIEW (PER STUDY) 1 DOSE IV (08:50)
[2025-07-08] MEDS: SODIUM CHLORIDE 0.9% 10ML SYR (RAD ONLY) 10 ML IV ×2 (08:50)
[2025-07-08 09:01] VITALS: BP 111/75; PULSE 66; RESP 16
== END 2025-07-08 23:59 | disposition home or self-care (01) ==
LOC: RAD 07:03
PROVIDERS: PCP Family Medicine; Visit Provider Internal Medicine
DX: I49.1 Atrial premature depolarization (principal); E11.9 Type 2 diabetes mellitus without complications; E78.00 Pure hypercholesterolemia, unspecified; I11.0 Hypertensive heart disease with heart failure; I50.9 Heart failure, unspecified; Z72.0 Tobacco use
CPT/HCPCS: 78452; 93017; 93018; A9502; J2785

== ENCOUNTER 2025-07-30 07:29 | Outpatient (CLI) | payer MEDICARE, MEDICAID, SELFPAY ==
[2025-07-30 17:13] LABS: Hematocrit 38.7 % (42.0-52.0); Hemoglobin 12.3 g/dL (14.1-18.0); Immature Granulocytes % 1.1 %; Mean Corpuscular HGB Conc 31.8 g/dL (31.8-35.4); Mean Corpuscular Hemoglobin 31.3 pg (27.0-31.2); Mean Corpuscular Volume 98.5 fl (80-94); Nucleated Red Blood Cells % 0 %; Platelet Count 303 K/mm3 (142-424); Red Blood Count 3.93 M/mm3 (4.60-6.20); Red Cell Distribution Width-SD 55.2 fL; White Blood Count 9.9 K/mm3 (4.8-10.8)
[2025-07-30 17:57] LABS: Alanine Aminotransferase 30 U/L (12-78); Albumin Level 4.5 g/dl (3.5-5.0); Albumin/Globulin Ratio 1.7 (1.1-1.8); Alkaline Phosphatase 53 U/L (38-126); Anion Gap 14.3 mEq/L (5-15); Aspartate Amino Transferase 29 U/L (17-59); Bilirubin,Total 0.5 mg/dl (0.2-1.3); Blood Urea Nitrogen 36 mg/dl (9-20); Calcium 8.9 mg/dl (8.4-10.2); Carbon Dioxide 19 mmol/L (22.0-30.0); Chloride 110 mmol/L (98-107); Cholesterol 126 mg/dl (140-200); Creatinine,Serum 2.20 mg/dl (0.66-1.25); Estimated Glomerular Filt Rate 32 ml/min (>60); GFR (African American) 39 ML/MIN (>60); Globulin 2.6 g/dL (1.3-3.2); Glucose 91 mg/dl (74-100); HDL Cholesterol 29 mg/dl (40-60); Potassium 5.3 mmoL/L (3.5-5.1); Sodium 138 mmol/L (136-145); Total Protein,Serum 7.1 g/dl (6.3-8.2); Triglycerides 189 mg/dl (30-150)
--- OUTSIDE RECORDS SUMMARY | 2025-07-31 07:29 | XMS_ITS | Clinical Summary ---
Author Organization [employer] ([place], [place], [place], [place], [place]) Address [address] [place] [address] Care Team Providers Care Lcac Operator Name Role Phone Unavailable Primary Care [...]
--- OUTSIDE RECORDS SUMMARY | 2025-07-31 07:29 | XMS_ITS | Clinical Summary ---
Author Organization [facility] Address [address] [place] [address] Care Team Providers Care Lumber Carrier Operator Name Role Phone Destin Valentin MD Primary [...] Active Syringe/Needle, Disp, (B-D 3CC LUER-CARISA SYR 73HQ3-4/2) 18G X 1-1/2 3 ML misc BD [...] EACH WEEK 024 Active ergocalciferol 1.25 MG (25112 UT) capsuleIndication s:Renal osteodystrophy Take 1 capsule [...] e free 04/26/2016 Influenza, seasonal, injectable 07/31/2016,04/26 [employer] COVID-19 Vaccine (Purple Cap) 12 + 04/15/2021,03/04/2021 [...] Care Team (Late st Contact Info) Description 08/06/2025 9:20 AM EST Office Visit [facility] [address] [place] [id number] Shahla Armijo DO [address] [place] [address] 08/22/2025 9:40 AM EST Office Visit [facility] [address] [place] [address] Milagros Warren, LURE MAKER [address] [address] Health Maintenance Due Date Last [...] 2024 Sigmoidoscopy 2024 [facility]-Colorectal Cancer Screening 2024 [id number] Vaccine (3 - season) 2025 04/15/2021, 03/04/2021 [facility]-Influenza Vaccine (#1) 03/31/202507/31, 04/26/2016, 04/26/2016 [facility]-Zoster Vaccines (1 of 2) 2029 [facility]-DTaP,Tdap,and Td Vaccines (2 - Td or Tdap) 02/15/2030 02/16/2020 [facility]-Hepatitis C Screening Completed 01/20/2019 [facility]-Obesity Intervention Completed 025, 10/11/2024, 03/08/2024, Additional history exists HPV Vaccines (No Doses Required) Completed [facility]-HIB Vaccines Aged Out No longer e [...] Recently Relevant to Health Maintenance Results * Lucile Hepatitis C Antibody (01/20/2019 9:40 PM EDT) Lucile Hepatitis C Ab NEGATIVE Reference Range: Negative [facility] 01/20/2019 9:40 PM EDT 01/20/2019 9:45 PM EDT us Dio Campa MD LAB BLOOD ORDERABLES Final [...] Most Recently Relevant to Health Maintenance Insurance [employer] MEDICARE Care Teams Lumber Carrier Operator Relationship Specialty Start Date End Date Destin Valentin MD PCP - General Family Medicine 09/05/22 [facility] 07/04/22
--- OUTSIDE RECORDS SUMMARY | 2025-07-31 07:29 | XMS_ITS | Referral Summary ---
Author Organization [employer] ([place], [place], [place], [place], [place]) Address [address] [place] [address] Care Team Providers Care Forest Fire [place] Name Role Phone Unavailable Primary Care Provider [...]
--- OUTSIDE RECORDS SUMMARY | 2025-07-31 07:29 | XMS_ITS | Encounter Summary ---
Author Organization [employer] ([place], [place], [place], [place], [place]) Address [address] [place] [address] Care Team Providers Care Investment Accountant Name Role Phone Unavailable Primary Care Provider Unavailabl e Encounter Details Date Type Department Care Team (Late st Contact Info) Description 12/13/2018 Transcribed Document [facility] Family Medicine [address] [place] [address] ProviderKaylie MD [address] [place] [address] Social History Tobacco Use Types [...]
--- OUTSIDE RECORDS SUMMARY | 2025-07-31 07:29 | XMS_ITS | Encounter Summary ---
Author Organization [employer] ([place], [place], [place], [place], [place]) Address [address] [place] [address] Care Team Providers Care Electric Utility Lineworker Name Role Phone Unavailable Primary Care Provider Unavailabl e Encounter Details Date Type Department Care Team (Late st Contact Info) Description 12/13/2018 Transcribed Document [facility] [place] Family Medicine [address] [place] [address] ProviderKaylie MD [address] [place] [address] Social History Tobacco Use Types Packs/Day Years Used Date Smoking Tobacco: Never Assessed Sex and Gender Information Value Date Recorded Sex Assigned at Not on file Legal Sex Male 4:50 PM CDT Gender Identity Not on file Sexual Orientation Not on file documented as of this encounter Miscellaneous Notes * Cerner Conversion Note - Kaylei Freeman MD - 12/13/2018 12:05 PM CDT [place] [id number] JACK DEVRIESDAVID Tineo :1980 Visit Time:12/13/2018 Your [...] Comments January 01 at 2pm Where: [address] [facility] [place] [phone] Medications What How Much When Instructions Next Dose aspirin (aspirin 81 mg oral tablet) 1 Tablet(s) Oral Every Day 12/14/2018 carvedilol (carvedilol 12.5 mg oral tablet) 1 Tablet(s) Oral Two Times A Day 12/14/2018 fenofibrate (fenofibrate 160 mg oral tablet) 1 Tablet(s) Oral Every Day 12/14/2018 fluticasone nasal (fluticasone 50 mcg/ inh nasal spray) 1 [place](s) Nasal Two Times A Day 12/14/2018 gabapentin [...] 03/20/2015 Document Revised: 12/22/2016 Document Reviewed: 02/03/2015 Reality Jockey Interactive Patient Education ?? 2019 Reality Jockey Inc. Steps to Quit Smoking Smoking tobacco [...] 05/13/2010 Document Revised: 03/14/2017 Document Reviewed: 12/01/2015 Reality [employer] Interactive Patient Education ?? 2019 [employer] Inc. Moderate Conscious Sedation, Adult, Care After [...] you are awake and alert. ??? Take auhd-aiy-xnbjkvn and prescription medicines only as told by [...] 05/07/2014 Document Revised: 12/19/2016 Document Reviewed: 11/05/2016 Reality Jockey Interactive Patient Education ?? 2019 Deci[employer]ium. Heart-Healthy Eating Plan Heart-healthy meal planning includes: [...] foods can I eat? Grains Breads, including Irish, white, trena, wheat, raisin, rye, oatmeal, and [place]. Tortillas that are neither fried nor made with lard or trans fat. Low-fat rolls, including hotdog and hamburger buns and Macanese muffins. Biscuits. Muffins. Waffles. Pancakes. Light popcorn. [...] cooking, baking, salads, and as spreads. Other [place] powder. Coffee and tea. All seasonings and [...] cottage cheese. Whole-milk cheeses, including blue (jimbo), [place] Juvencio, Brie, Frankie, Somali, Havarti, Uruguayan, cheddar, Camembert, and [place]. Whole or 2% milk that is liquid, [...] that has suet, meat fat, or shortening. [place] butter, hydrogenated oils, palm oil, coconut oil, [...] 01/15/2013 Document Revised: 12/22/2016 Document Reviewed: 01/08/2015 Reality Jockey Interactive Patient Education ?? 2019 DeciZium. Venogram A venogram, or venography, is a [...] including vitamins, herbs, eye drops, creams, and irdv-hsl-xsqkval medicines. ??? Any problems you or family [...] 07/05/2010 Document Revised: 06/10/2017 Document Reviewed: 06/10/2017 Reality Jockey Interactive Patient Education ?? 2019 DeciZium. Emergency Awareness and Preventative Care STROKE is [...] Assistance with quitting is available by contacting 6-466-IJYG-NOW. This is a free resource providing counseling, [...] Be sure to sign up for the [facility] patient portal, which gives you 20/02 access to your medical information ??? including these discharge instructions ??? using your computer, smartphone, or tablet. Just go to Chuguobang to get started. Questions? Call . Test Results Laboratory or Other Results This Visit (last charted value for your 12/13/2018 visit) Hematology 12/13/18 08:16:00 Platelet Count: 262 K/uL -- Normal range between ( 163 and 369 ) Patient Name:MATT DEVRIES I have received and understand this information and was given the opportunity to ask questions. Patient/Fruit I Farmworker Name: Patient/Fruit I Farmworker Signature: Relationship to Patient: Clinician/Hospital Fruit I Farmworker Signature: Date: documented in this encounter Plan of Treatment Not on file documented as of this encounter Visit Diagnoses Not on filedocumented in this encounter
--- OUTSIDE RECORDS SUMMARY | 2025-07-31 07:29 | XMS_ITS | Encounter Summary ---
Author Organization [employer] ([place], [place], [place], [place], [place]) Address [address] [place] [address] Care Team Providers Care Loan Approver Name Role Phone Unavailable Primary Care Provider Unavailabl e Encounter Details Date Type Department Care Team (Late st Contact Info) Description 12/13/[address] [facility] [place] Family Medicine [address] [place] [address] ProviderKaylie MD [facility] [place] [address] Social History Tobacco Use Types [...] EDT Performed On: 12/13/2018 8:29 EDT by CHIRSS ONTIVEROS General Info Arrived From : Home Mode of Arrival on Unit : Wheelchair Legal Guardian : Spouse Support Person/Patient President And Chief Commercial Officer : No Support Person/Pt Rep Name : esau Support Person/Pt Rep Contact Information : [phone] Want Family/Rep/Phys Notified of Admit : No Emergency Contact #1 : rani Emergency Contact #1 Emergency Contact #1 Relationship : Emergency Contact #2 : na Emergency Contact #2 Phone Number : na Emergency Contact #2 Relationship : na Chief Complaint : lle edema/pain Information Obtained From : Patient Primary Language : [place] Preferred Communication Mode : Verbal Communication Barrier : None CHRISS ONTIVEROS - 12/13/2018 8:29 EDT Height and Weight, Clinical Dosing Height Source : Stated Height Entry Format : [place] Height, Feet : 5 ft(Converted to: 152 cm, 60 Inch) Height, Inches : 7 Inch(Converted to: 0 ft 7 Inch, 17.78 cm) Clinical Height : 170.18 cm Weight Source : Standing scale Weight Entry Format : [place] Clinical Dosing Weight : 138.64 kg Weight, Pounds : 305 lb Body Surface Area (BSA) : 2.42 m2 Body Mass Index : 47.9 kg/m2 (>HHI) [place] Body Weight : 65 kg CHRISS ONTIVEROS [...] No impairment Jeffery Moisture : Rarely moist Jefefry Activity : Walks occasionally Jeffery Mobility : [...] Scale Risk Level : 25-45 Medium Risk [place] Fall Interventions : Adequate lighting, Assistive devices [...]
--- OUTSIDE RECORDS SUMMARY | 2025-07-31 07:29 | XMS_ITS | Encounter Summary ---
Author Organization [employer] ([place], [place], [place], [place], [place]) Address [address] [place] [address] Care Team Providers Care Sales Agent Casualty Insurance Name Role Phone Unavailable Primary Care Provider Unavailabl e Encounter Details Date Type Department Care Team (Late st Contact Info) Description 12/13/2018 Transcribed Document [facility] [place] [address] [place] [address] ProviderKaylie MD [facility] [place] [address] Social History Tobacco Use Types [...]
--- OUTSIDE RECORDS SUMMARY | 2025-07-31 07:29 | XMS_ITS | Encounter Summary ---
Author Organization [employer] ([place], [place], [place], [place], [place]) Address [address] [place] [address] Care Team Providers Care Crab Meat Processor Name Role Phone Unavailable Primary Care Provider Unavailabl e Encounter Details Date Type Department Care Team (Late st Contact Info) Description 12/13/2018 Transcribed Document [facility] Family Medicine [address] [place] [address] ProviderKaylie MD [address] [place] [address] Social History Tobacco Use Types [...] 03/20/2015 Document Revised: 12/22/2016 Document Reviewed: 02/03/2015 [employer] Patient Education ? 2019 [employer] Steps to Quit Smoking Smoking tobacco [...] 05/13/2010 Document Revised: 03/14/2017 Document Reviewed: 12/01/2015 [employer] Patient Education ? 2019 [employer] Moderate Conscious Sedation, Adult, Care After [...] you are awake and alert. ??? Take [id number]-smwyotb and prescription medicines only as told by [...] 05/07/2014 Document Revised: 12/19/2016 Document Reviewed: 11/05/2016 [employer] Patient Education ? 2019 [employer] Heart-Healthy Eating Plan Heart-healthy meal planning [...] foods can I eat? Grains Breads, including Macedonian, white, trena, wheat, raisin, rye, oatmeal, and Croatian. Tortillas that are neither fried nor made with lard or trans fat. Low-fat rolls, including hotdog and hamburger buns and Cuban muffins. Biscuits. Muffins. Waffles. Pancakes. Light popcorn. Whole-grain cereals. Flatbread. [place] toast. Pretzels. Breadsticks. Rusks. Low-fat snacks. Low-fat [...] cooking, baking, salads, and as spreads. Other [place] powder. Coffee and tea. All seasonings and [...] cottage cheese. Whole-milk cheeses, including blue (jimbo), [place], Brie, Frankie, Taiwanese, Havarti, Niuean, cheddar, Camembert, and Canute. Whole or 2% milk that is liquid, [...] that has suet, meat fat, or shortening. [place] butter, hydrogenated oils, palm oil, coconut oil, [...] 01/15/2013 Document Revised: 12/22/2016 Document Reviewed: 01/08/2015 [employer] Patient Education ? 2019 [employer]. Radiology Venogram A venogram, or venography, is [...] including vitamins, herbs, eye drops, creams, and zdab-fyk-eqslokk medicines. ??? Any problems you or family [...] 07/05/2010 Document Revised: 06/10/2017 Document Reviewed: 06/10/2017 [employer] Interactive Patient Education ? 2019 [employer] documented in this encounter Plan of Treatment Not on file documented as of this encounter Visit Diagnoses Not on filedocumented in this encounter
--- OUTSIDE RECORDS SUMMARY | 2025-07-31 07:29 | XMS_ITS | Encounter Summary ---
Author Organization [employer] ([place], [place], [place], [place], [place]) Address [address] [place] [address] Care Team Providers Care Surveyor Mine Name Role Phone Unavailable Primary Care Provider Unavailabl e Encounter Details Date Type Department Care Team (Late st Contact Info) Description 12/13/2018 Transcribed Document [facility] Radiology [address] [place] [address] Jesse Sánchez MD [address] [facility] [place] [id number] Social History Tobacco Use Types Packs/Day Years [...] DESCRIPTION: Patient was taken back to the cytogenetics laboratory manager, placed in supine position. Following a time-out, bilateral groins were widely prepped and draped in standard sterile fashion. He was sedated with 2 mg of Versed and 50 mcg of fentanyl. Under ultrasound evaluation, the left greater saphenous vein was assessed. This was patent. Imaging was documented within the chart. It was accessed successfully with a micropuncture needle. A 9-[place] African sheath was placed. A pelvic venogram was [...] Dict: 12/13/2018 11:36:11 Trans: 12/13/2018 17:19:37 CC1: eJsse Sánchez M.D. documented in this encounter Plan of Treatment Not on file documented as of this encounter Visit Diagnoses Not on filedocumented in this encounter
== END 2025-07-30 23:59 | disposition home or self-care (01) ==
LOC: LAB.DROPOF 07-31 07:29
PROVIDERS: PCP Family Medicine; Visit Provider Family Medicine
DX: E13.69 Other specified diabetes mellitus with other specified complication (principal); E78.2 Mixed hyperlipidemia; E23.6 Other disorders of pituitary gland
CPT/HCPCS: 80053; 80061; 82043; 82570; 83970; 85025